=== PATIENT | male | born 1945 | race Caucasian/White ===

== ENCOUNTER 2017-10-06 16:08 | Emergency (ER) | payer MEDICARE ==
[~2017-10-06] VITALS: Ht 172.7 cm; Wt 72.6 kg
[~2017-10-06 16:08] MED LIST: CARB25TA22 PO; CITA10TA59 PO; DIP25C PO; LORA-654 PO; OLAN2.5T25 PO; PRA25T PO; RASA1TAB4 PO; TRIH5TAB2 PO; WARF5TAB71 PO
[2017-10-06 16:25] VITALS: BP 101/73
== END 2017-10-06 19:29 | disposition home or self-care (01) ==
LOC: ER 16:10
DX: S00.03XA Contusion of scalp, initial encounter (principal); S50.12XA Contusion of left forearm, initial encounter; Z88.8 Allergy status to other drugs, medicaments and biological substances; Z79.899 Other long term (current) drug therapy; W18.39XA Other fall on same level, initial encounter; Y93.89 Activity, other specified; Y92.89 Other specified places as the place of occurrence of the external cause; Y99.8 Other external cause status
CPT/HCPCS: 70450

== ENCOUNTER 2018-03-10 11:36 | Inpatient (IN) | payer MEDICARE, OTHER ==
[~2018-03-10] VITALS: Ht 175.3 cm; Wt 74.0 kg
[2018-03-10] VITALS (8 sets, daily range): BP systolic 85–109; BP diastolic 37–76
[2018-03-10] MEDS ORDERED: SODIUM CHLORIDE 0.9% 1,000 ML IV ONE (12:20)
[2018-03-10] MEDS ORDERED: LEVOFLOXACIN 500MG 100 ML IV ONE (12:30)
[2018-03-10] MEDS ORDERED: NOREPINEPHRINE 16 MG/500ML KIT 500 ML IV SCH (13:14)
[2018-03-10] MEDS ORDERED: MORPHINE SULFATE 4 MG/ML SYR/VIAL IV PRN (13:15)
[2018-03-10] MEDS ORDERED: OSELTAMIVIR 75 MG CAP PO ONE (13:15)
[2018-03-10] MEDS ORDERED: cefTRIAXone 1GM/10ml IVPUSH 10 ML IV ONE ×2 (13:15→14:30)
[2018-03-10] MEDS ORDERED: LACTATED RINGER'S 1,000 ML IV SCH (13:15)
[2018-03-10] MEDS ORDERED: NITROGLYCERIN 0.4 MG SL TAB SL PRN (13:15)
[2018-03-10] MEDS ORDERED: AZITHROMYCIN 500MG/ 250ML 250 ML IV ONE ×2 (13:15→14:30)
[2018-03-10] MEDS ORDERED: VANCOMYCIN PER PHARMACY 0 MG IV SCH (13:15)
[2018-03-10 13:23] LABS: Lactic Acid w/Reflex 3.3 mmol/L (0.4-2.0)
[2018-03-10 13:32] LABS: Hemoglobin 10.2 g/dL (13.5-17.5)
[2018-03-10] MEDS ORDERED: VANCOMYCIN 1GM/250ML 250 ML IV ONE (13:45)
[2018-03-10 13:52] LABS: Albumin 2.3 g/dL (3.4-5.0); Bilirubin, Total 0.8 mg/dL (0.2-1.0); Calcium 7.9 mg/dL (8.5-10.1); Magnesium 2.6 mg/dL (1.6-2.6); Potassium 3.3 mmol/L (3.5-5.1); Total Protein 6.5 g/dL (6.4-8.2)
[2018-03-10 13:56] LABS: Hematocrit 30.8 % (41.0-53.0); Mean Corpuscular Hemoglobin 30.8 pg (28.0-32.0); Mean Corpuscular Hgb Conc. 33.2 g/dL (32.0-36.0); Mean Corpuscular Volume 92.8 fL (80.0-100.0); Platelet Count (auto) 166 10^3/uL (140-450); Red Blood Cells 3.32 10^6/uL (4.5-5.90); Red Cell Distribution Width 15.4 % (11.8-14.3)
[2018-03-10 14:09] LABS: Basophils % (manual) 0 (0.0-2.0); Blast Cells 0; Eosinophils % (manual) 0 (0-7); Promyelocytes % 0; Reactive Lymphocytes 0
[2018-03-10 14:32] LABS: Cholesterol 61 mg/dL (< 200); HDL Cholesterol 9 mg/dL (40-59); LDL Cholesterol 13 mg/dL (< 100); Triglycerides 200 mg/dL (< 150)
[2018-03-10] MEDS ORDERED: ENOXAPARIN SOD 40 MG/0.4 ML SYRINGE SC ONE (14:45)
[2018-03-10] MEDS ORDERED: CARBIDOPA W LEVODOPA 25/100mg TABLET PO ONE (14:45)
[2018-03-10] MEDS ORDERED: POTASSIUM CHL 10 Meq TABLET PO ONE (14:45)
[2018-03-10 14:53] LABS: Band Neutrophils % (manual) 11; Lymphocytes % (manual) 21 (10.0-50.0); Metamyelocytes % 8; Monocytes % (manual) 2 (0-12); Myelocytes % 1
[2018-03-10] MEDS ORDERED: PANTOPRAZOLE 40 MG/10 ML VIAL IV ONE (15:45)
[2018-03-10] MEDS: LACTATED RINGER'S 1,000 ML IV SCH ×2 (16:26→23:58)
[2018-03-10 16:33] LABS: Partial Thromboplastin Time 69.2 sec (22.64-33.71); Prothrombin Time 65.1 sec (9.37-12.3)
[2018-03-10 16:37] LABS: INR 5.87 (0.9-1.15)
[2018-03-10] MEDS: OSELTAMIVIR 30MG/2ML ORAL SUSP PO SCH (17:00)
[2018-03-10 17:39] LABS: Urine Bacteria NONE SEEN /hpf (None Seen); Urine Blood 1+ /uL (Negative); Urine Hyaline Cast MANY /lpf (0 - 2); Urine Mucus FEW (None Seen); Urine Specific Gravity 1.023 (1.001-1.035); Urine WBC 4 /hpf (0 - 3)
[2018-03-10] MEDS: ALBUTEROL SULF 2.5 MG/0.5ML(0.5%) NEB SOLN NEB SCH (18:20)
[2018-03-10] MEDS: IPRATROPIUM BROM 0.5 MG/2.5ML INH SOL NEB SCH (18:20)
[2018-03-10] MEDS: PIPERACILLIN-TAZOB 2.25GM 50 ML IV SCH (18:28)
[2018-03-10] MEDS ORDERED: CITALOPRAM HYDROBR 20 MG TAB PO ONE (20:15)
[2018-03-10] MEDS ORDERED: OLANZapine 5 MG TAB PO ONE (20:15)
[2018-03-10 20:35] LABS: BUN/Creatinine Ratio 22.7; Calcium 7.6 mg/dL (8.5-10.1); Potassium 3.7 mmol/L (3.5-5.1)
[2018-03-10] MEDS: LINEZOLID 600MG/300ML 300 ML IV SCH (20:36)
[2018-03-10] MEDS: NOREPINEPHRINE 16 MG/500ML KIT 500 ML IV SCH (21:20)
[2018-03-10] MEDS ORDERED: LORA2TAB89 PO (21:39)
[2018-03-10] MEDS ORDERED: CITA10TA59 PO (21:39)
[2018-03-10] MEDS ORDERED: PRA25T PO (21:39)
[2018-03-10] MEDS ORDERED: RASA1TAB4 PO (21:39)
[2018-03-10] MEDS ORDERED: CARB25TA22 PO (21:39)
[2018-03-10] MEDS ORDERED: WARF5TAB71 PO (21:39)
[2018-03-10] MEDS ORDERED: OLAN20TA13 PO (21:39)
[2018-03-10] MEDS ORDERED: TRIH5TAB2 PO ×2 (21:39)
[2018-03-10] MEDS ORDERED: PRAMIPEXOLE DIHYDROCHLORIDE MO 0.25 MG TAB PO SCH (22:00)
[2018-03-10] MEDS ORDERED: CARBIDOPA W LEVODOPA 25/100mg TABLET PO SCH (22:00)
[2018-03-11] VITALS (82 sets, daily range): BP systolic 75–124; BP diastolic 50–87
[2018-03-11] MEDS: PIPERACILLIN-TAZOB 2.25GM 50 ML IV SCH ×4 (00:18→18:48)
[2018-03-11] MEDS: ALBUTEROL SULF 2.5 MG/0.5ML(0.5%) NEB SOLN NEB SCH ×4 (00:28→18:46)
[2018-03-11] MEDS: IPRATROPIUM BROM 0.5 MG/2.5ML INH SOL NEB SCH ×4 (00:28→18:45)
[2018-03-11 03:58] LABS: Hemoglobin 9.4 g/dL (13.5-17.5); Mean Corpuscular Hemoglobin 31.5 pg (28.0-32.0); Mean Corpuscular Hgb Conc. 34.5 g/dL (32.0-36.0)
[2018-03-11 04:00] LABS: Hematocrit 27.3 % (41.0-53.0); Mean Corpuscular Volume 91.2 fL (80.0-100.0); Platelet Count (auto) 147 10^3/uL (140-450); Red Cell Distribution Width 15.4 % (11.8-14.3)
[2018-03-11 04:09] LABS: White Blood Cell 0.8 10^3/uL (4.4-10.8)
[2018-03-11 04:23] LABS: Albumin 1.8 g/dL (3.4-5.0); BUN/Creatinine Ratio 26.1; Bilirubin, Total 0.9 mg/dL (0.2-1.0); Calcium 7.9 mg/dL (8.5-10.1); Potassium 3.7 mmol/L (3.5-5.1); Total Protein 5.6 g/dL (6.4-8.2)
[2018-03-11 04:27] LABS: Lactic Acid w/Reflex 2.8 mmol/L (0.4-2.0)
[2018-03-11] MEDS ORDERED: DEXTROSE (50%) 50ML SYRG IV PRN (04:45)
[2018-03-11 04:47] LABS: Basophils % (manual) 0 (0.0-2.0); Blast Cells 0; Monocytes % (manual) 0 (0-12); Myelocytes % 0; Promyelocytes % 0; Reactive Lymphocytes 0
[2018-03-11 04:50] LABS: Band Neutrophils % (manual) 40; Eosinophils % (manual) 2 (0-7); Lymphocytes % (manual) 18 (10.0-50.0); Metamyelocytes % 2
[2018-03-11] MEDS ORDERED: DEXTROSE 50% SYRINGE 50 ML IV ONE (04:55)
[2018-03-11] MEDS: ACCU-CHEK COMFORT CURVE STRIP VI SCH ×3 (07:44→18:49)
[2018-03-11] MEDS: InsuLIN REG 1unit/0.01ml Soln (100units/ml) SC SCH ×3 (07:44→18:48)
[2018-03-11] MEDS ORDERED: cefTRIAXone 1GM/10ml IVPUSH 10 ML IV SCH (09:00)
[2018-03-11] MEDS: LINEZOLID 600MG/300ML 300 ML IV SCH ×2 (09:20→20:34)
[2018-03-11] MEDS: OSELTAMIVIR 30MG/2ML ORAL SUSP PO SCH (10:00)
[2018-03-11] MEDS ORDERED: ENOXAPARIN SOD 30 MG/0.3 ML SYRINGE SC SCH (10:00)
[2018-03-11] MEDS: PANTOPRAZOLE 40 MG/10 ML VIAL IV SCH (10:28)
[2018-03-11] MEDS: AZITHROMYCIN 500MG/ 250ML 200 ML IV SCH (10:31)
[2018-03-11] MEDS: LACTATED RINGER'S 1,000 ML IV SCH (11:59)
[2018-03-11] MEDS: ALBUMIN 25% 100 ML IV SCH ×2 (12:23→19:36)
[2018-03-11] MEDS: CARBIDOPA W LEVODOPA 25/100mg TABLET PO SCH ×3 (13:32→21:55)
[2018-03-11] MEDS ORDERED: FILGRASTIM 480 MCG INJ VIAL SC SCH (23:00)
[2018-03-12] VITALS (41 sets, daily range): BP systolic 90–124; BP diastolic 42–78
[2018-03-12] MEDS: PIPERACILLIN-TAZOB 2.25GM 50 ML IV SCH ×4 (00:17→18:32)
[2018-03-12] MEDS: IPRATROPIUM BROM 0.5 MG/2.5ML INH SOL NEB SCH ×4 (00:43→18:49)
[2018-03-12] MEDS: ALBUTEROL SULF 2.5 MG/0.5ML(0.5%) NEB SOLN NEB SCH ×4 (00:43→18:49)
[2018-03-12] MEDS: ACCU-CHEK COMFORT CURVE STRIP VI SCH ×4 (01:49→18:22)
[2018-03-12] MEDS: LACTATED RINGER'S 1,000 ML IV SCH (03:31)
[2018-03-12] MEDS: ALBUMIN 25% 100 ML IV SCH (03:31)
[2018-03-12 04:14] LABS: Basophils # (auto) 0 uL; Eosinophils # (auto) 0 uL; Eosinophils % (auto) 0.5 % (0.0-7.0); Hematocrit 25.8 % (41.0-53.0); Hemoglobin 8.7 g/dL (13.5-17.5); Lymphocytes # (auto) 0.2 uL; Lymphocytes % (auto) 3.9 % (10.0-50.0); Mean Corpuscular Hemoglobin 30.9 pg (28.0-32.0); Mean Corpuscular Hgb Conc. 33.5 g/dL (32.0-36.0); Mean Corpuscular Volume 92.2 fL (80.0-100.0); Monocytes # (auto) 0 uL; Neutrophils # (auto) 3.7 uL; Neutrophils % (auto) 94.6 % (37.0-80.0); Nucleated Red Blood Cells % 0.2 %; Platelet Count (auto) 159 10^3/uL (140-450); Red Cell Distribution Width 15.5 % (11.8-14.3); White Blood Cell 3.9 10^3/uL (4.4-10.8)
[2018-03-12 04:42] LABS: Alanine Aminotransferase < 6 U/L (16-61); Albumin 2.2 g/dL (3.4-5.0); Alkaline Phosphatase 78 U/L (45-117); Anion Gap 9 (5-15); Aspartate Aminotransferase 18 U/L (15-37); BUN/Creatinine Ratio 33.9; Bilirubin, Total 1.4 mg/dL (0.2-1.0); Blood Urea Nitrogen 43 mg/dL (7-18); Calcium 8.4 mg/dL (8.5-10.1); Carbon Dioxide 23 mmol/L (21-32); Chloride 107 mmol/L (98-107); GFR African American 72 mL/min; GFR Non-African American 60 mL/min; Glucose 65 mg/dL (74-106); Phosphorus 3.6 mg/dL (2.5-4.90); Potassium 3.1 mmol/L (3.5-5.1); Sodium 139 mmol/L (136-145); Total Protein 5.6 g/dL (6.4-8.2)
[2018-03-12] MEDS: InsuLIN REG 1unit/0.01ml Soln (100units/ml) SC SCH ×4 (05:47→18:00)
[2018-03-12] MEDS: CARBIDOPA W LEVODOPA 25/100mg TABLET PO SCH ×4 (06:02→22:00)
[2018-03-12] MEDS: NOREPINEPHRINE 16 MG/500ML KIT 500 ML IV SCH (08:12)
[2018-03-12] MEDS: LINEZOLID 600MG/300ML 300 ML IV SCH ×2 (08:17→20:00)
[2018-03-12] MEDS ORDERED: TRIHEXYPHENIDYL NG SCH (10:00)
[2018-03-12] MEDS ORDERED: ENOXAPARIN SOD 40 MG/0.4 ML SYRINGE SC SCH (10:00)
[2018-03-12] MEDS: RASAGILINE 1 MG NG SCH (11:00)
[2018-03-12] MEDS: PANTOPRAZOLE 40 MG/10 ML VIAL IV SCH (11:31)
[2018-03-12] MEDS: D5W/SOD CHL 0.45%/KCL 20MEQ 1,000 ML IV SCH (14:25)
[2018-03-12] MEDS: POTASSIUM CHL 20MEQ/100ML 100 ML IV SCH ×2 (14:29→16:55)
[2018-03-12] MEDS ORDERED: MORPHINE SULFATE 8mg/ml INJ SDV IV PRN (15:30)
[2018-03-12 15:38] LABS: Prothrombin Time 100.2 sec (9.37-12.3)
[2018-03-12] MEDS: AZITHROMYCIN 500MG/ 250ML 200 ML IV SCH (16:00)
[2018-03-12 16:14] LABS: INR 8.99 (0.9-1.15); Partial Thromboplastin Time 125.6 sec (22.64-33.71)
[2018-03-12] MEDS ORDERED: PHYTONADIONE (VIT K)10 MG/ML 1ML VIAL SUBCUT ONE (16:45)
[2018-03-12] MEDS: TRIHEXYPHENIDYL 5 MG NG SCH (22:00)
[2018-03-13] VITALS (7 sets, daily range): BP systolic 117–134; BP diastolic 68–99
[2018-03-13] MEDS: ALBUTEROL SULF 2.5 MG/0.5ML(0.5%) NEB SOLN NEB SCH ×4 (00:12→18:09)
[2018-03-13] MEDS: IPRATROPIUM BROM 0.5 MG/2.5ML INH SOL NEB SCH ×4 (00:12→18:09)
[2018-03-13] MEDS: PIPERACILLIN-TAZOB 2.25GM 50 ML IV SCH ×4 (05:51→17:49)
[2018-03-13] MEDS: CARBIDOPA W LEVODOPA 25/100mg TABLET PO SCH ×4 (05:52→20:53)
[2018-03-13] MEDS: InsuLIN REG 1unit/0.01ml Soln (100units/ml) SC SCH ×4 (06:00→17:57)
[2018-03-13] MEDS: ACCU-CHEK COMFORT CURVE STRIP VI SCH ×4 (06:16→17:49)
[2018-03-13 06:27] LABS: Basophils # (auto) 0 uL; Basophils % (auto) 0.1 % (0.0-2.0); Eosinophils # (auto) 0 uL; Eosinophils % (auto) 0.3 % (0.0-7.0); Hematocrit 25.2 % (41.0-53.0); Hemoglobin 8.7 g/dL (13.5-17.5); Lymphocytes # (auto) 0.3 uL; Lymphocytes % (auto) 3.8 % (10.0-50.0); Mean Corpuscular Hemoglobin 31.6 pg (28.0-32.0); Mean Corpuscular Hgb Conc. 34.6 g/dL (32.0-36.0); Mean Corpuscular Volume 91.3 fL (80.0-100.0); Monocytes # (auto) 0.1 uL; Monocytes % (auto) 1.7 % (0.0-12.0); Neutrophils % (auto) 94.1 % (37.0-80.0); Nucleated Red Blood Cells % 0.1 %; Platelet Count (auto) 168 10^3/uL (140-450); Red Blood Cells 2.76 10^6/uL (4.5-5.90); Red Cell Distribution Width 15.6 % (11.8-14.3); White Blood Cell 8.5 10^3/uL (4.4-10.8)
[2018-03-13 06:46] LABS: Prothrombin Time 85.5 sec (9.37-12.3)
[2018-03-13 06:49] LABS: BUN/Creatinine Ratio 34.1; Bilirubin, Total 1.5 mg/dL (0.2-1.0); Calcium 8.4 mg/dL (8.5-10.1); Potassium 3.9 mmol/L (3.5-5.1); Total Protein 5.7 g/dL (6.4-8.2)
[2018-03-13 06:56] LABS: INR 7.68 (0.9-1.15)
[2018-03-13 06:57] LABS: Partial Thromboplastin Time 115.8 sec (22.64-33.71)
[2018-03-13] MEDS: PANTOPRAZOLE 40 MG/10 ML VIAL IV SCH (09:59)
[2018-03-13] MEDS: D5W/SOD CHL 0.45%/KCL 20MEQ 1,000 ML IV SCH (10:00)
[2018-03-13] MEDS: LINEZOLID 600MG/300ML 300 ML IV SCH ×2 (10:04→20:24)
[2018-03-13] MEDS ORDERED: PHYTONADIONE (VIT K)10 MG/ML 1ML VIAL SUBCUT ONE (10:15)
[2018-03-13] MEDS: RASAGILINE 1 MG NG SCH (12:00)
[2018-03-13] MEDS: TRIHEXYPHENIDYL 5 MG NG SCH ×2 (12:00→20:53)
[2018-03-13] MEDS: AZITHROMYCIN 500MG/ 250ML 200 ML IV SCH (12:14)
[2018-03-13 20:51] LABS: % Iron Saturation 44.2 % (20-55)
[2018-03-14] VITALS: BP 131/81
[2018-03-14] MEDS: ALBUTEROL SULF 2.5 MG/0.5ML(0.5%) NEB SOLN NEB SCH ×4 (00:04→19:24)
[2018-03-14] MEDS: IPRATROPIUM BROM 0.5 MG/2.5ML INH SOL NEB SCH ×4 (00:04→19:23)
[2018-03-14] MEDS: PIPERACILLIN-TAZOB 2.25GM 50 ML IV SCH ×5 (05:01→23:08)
[2018-03-14 05:33] LABS: Basophils # (auto) 0 uL; Basophils % (auto) 0.2 % (0.0-2.0); Eosinophils # (auto) 0 uL; Eosinophils % (auto) 0.1 % (0.0-7.0); Hematocrit 25.9 % (41.0-53.0); Hemoglobin 8.9 g/dL (13.5-17.5); Lymphocytes # (auto) 0.3 uL; Lymphocytes % (auto) 5.1 % (10.0-50.0); Mean Corpuscular Hemoglobin 31.3 pg (28.0-32.0); Mean Corpuscular Hgb Conc. 34.5 g/dL (32.0-36.0); Mean Corpuscular Volume 90.8 fL (80.0-100.0); Monocytes # (auto) 0.2 uL; Monocytes % (auto) 3.3 % (0.0-12.0); Neutrophils # (auto) 5.6 uL; Neutrophils % (auto) 91.3 % (37.0-80.0); Platelet Count (auto) 167 10^3/uL (140-450); Red Blood Cells 2.85 10^6/uL (4.5-5.90); Red Cell Distribution Width 15.5 % (11.8-14.3); White Blood Cell 6.1 10^3/uL (4.4-10.8)
[2018-03-14 05:47] LABS: INR 2.13 (0.9-1.15); Partial Thromboplastin Time 52.8 sec (22.64-33.71); Prothrombin Time 23.4 sec (9.37-12.3)
[2018-03-14] MEDS: InsuLIN REG 1unit/0.01ml Soln (100units/ml) SC SCH ×4 (06:00→17:58)
[2018-03-14] MEDS: ACCU-CHEK COMFORT CURVE STRIP VI SCH ×4 (06:00→17:58)
[2018-03-14] MEDS: D5W/SOD CHL 0.45%/KCL 20MEQ 1,000 ML IV SCH ×2 (06:00→20:14)
[2018-03-14] MEDS: CARBIDOPA W LEVODOPA 25/100mg TABLET PO SCH ×4 (07:00→23:08)
[2018-03-14 08:00] VITALS: BP 137/90
[2018-03-14] MEDS: LINEZOLID 600MG/300ML 300 ML IV SCH ×2 (08:46→20:14)
[2018-03-14 09:04] LABS: Alanine Aminotransferase < 6 U/L (16-61); Albumin 1.8 g/dL (3.4-5.0); Alkaline Phosphatase 120 U/L (45-117); Anion Gap 7 (5-15); Aspartate Aminotransferase 18 U/L (15-37); BUN/Creatinine Ratio 29.2; Bilirubin, Total 1.8 mg/dL (0.2-1.0); Blood Urea Nitrogen 21 mg/dL (7-18); Calcium 8.1 mg/dL (8.5-10.1); Carbon Dioxide 26 mmol/L (21-32); Chloride 108 mmol/L (98-107); GFR African American 139 mL/min; GFR Non-African American 115 mL/min; Glucose 140 mg/dL (74-106); Sodium 141 mmol/L (136-145); Total Protein 5.7 g/dL (6.4-8.2)
[2018-03-14] MEDS: PANTOPRAZOLE 40 MG/10 ML VIAL IV SCH (09:43)
[2018-03-14] MEDS: AZITHROMYCIN 500MG/ 250ML 200 ML IV SCH (09:43)
[2018-03-14] MEDS: RASAGILINE 1 MG NG SCH (09:44)
[2018-03-14] MEDS: TRIHEXYPHENIDYL 5 MG NG SCH ×2 (09:44→23:07)
[2018-03-14 11:45] VITALS: BP 136/80
[2018-03-14] MEDS: SODIUM FERR GLUC 62.5MG/5ML 125 MG in SODIUM CHL 0.9% 100 ML IV SCH (15:10)
[2018-03-14 15:52] VITALS: BP 135/81
[2018-03-14] MEDS ORDERED: WARFARIN SODIUM 2.5 MG TAB PO ONE (17:00)
[2018-03-14] MEDS: FERROUS SULFATE 325 MG TAB PO SCH (17:57)
[2018-03-14 19:58] VITALS: BP 115/74
[2018-03-15] MEDS: ACCU-CHEK COMFORT CURVE STRIP VI SCH ×4 (00:08→17:32)
[2018-03-15 00:23] VITALS: BP 128/76
[2018-03-15] MEDS: ALBUTEROL SULF 2.5 MG/0.5ML(0.5%) NEB SOLN NEB SCH ×4 (00:31→18:21)
[2018-03-15] MEDS: IPRATROPIUM BROM 0.5 MG/2.5ML INH SOL NEB SCH ×4 (00:32→18:21)
[2018-03-15] MEDS: InsuLIN REG 1unit/0.01ml Soln (100units/ml) SC SCH ×4 (05:35→17:32)
[2018-03-15] MEDS: PIPERACILLIN-TAZOB 2.25GM 50 ML IV SCH ×3 (05:53→18:10)
[2018-03-15] MEDS: CARBIDOPA W LEVODOPA 25/100mg TABLET PO SCH ×4 (05:53→22:00)
[2018-03-15 06:20] LABS: INR 1.34 (0.9-1.15); Partial Thromboplastin Time 36.1 sec (22.64-33.71); Prothrombin Time 14.7 sec (9.37-12.3)
[2018-03-15 06:22] LABS: Alanine Aminotransferase < 6 U/L (16-61); Albumin 1.8 g/dL (3.4-5.0); Alkaline Phosphatase 108 U/L (45-117); Anion Gap 8 (5-15); Aspartate Aminotransferase 15 U/L (15-37); BUN/Creatinine Ratio 33.3; Bilirubin, Total 2.3 mg/dL (0.2-1.0); Blood Urea Nitrogen 22 mg/dL (7-18); Calcium 8.2 mg/dL (8.5-10.1); Carbon Dioxide 26 mmol/L (21-32); Chloride 109 mmol/L (98-107); GFR African American 153 mL/min; GFR Non-African American 127 mL/min; Glucose 121 mg/dL (74-106); Potassium 3.9 mmol/L (3.5-5.1); Sodium 143 mmol/L (136-145); Total Protein 6.1 g/dL (6.4-8.2)
[2018-03-15] MEDS: FERROUS SULFATE 325 MG TAB PO SCH ×2 (08:53→18:00)
[2018-03-15] MEDS: LINEZOLID 600MG/300ML 300 ML IV SCH ×2 (08:54→20:22)
[2018-03-15] MEDS: PANTOPRAZOLE 40 MG/10 ML VIAL IV SCH (09:40)
[2018-03-15] MEDS: TRIHEXYPHENIDYL 5 MG NG SCH ×2 (09:43→22:00)
[2018-03-15] MEDS: RASAGILINE 1 MG NG SCH (09:43)
[2018-03-15] MEDS: AZITHROMYCIN 500MG/ 250ML 200 ML IV SCH (10:47)
[2018-03-15 11:50] VITALS: BP 133/76
[2018-03-15] MEDS: SODIUM FERR GLUC 62.5MG/5ML 125 MG in SODIUM CHL 0.9% 100 ML IV SCH (12:00)
[2018-03-15] MEDS: D5W/SOD CHL 0.45%/KCL 20MEQ 1,000 ML IV SCH (15:45)
[2018-03-15 15:50] VITALS: BP 128/77
[2018-03-15] MEDS ORDERED: WARFARIN SODIUM 2.5 MG TAB PO ONE (17:00)
[2018-03-15 19:50] VITALS: BP 133/78
[2018-03-16] VITALS (8 sets, daily range): BP systolic 109–142; BP diastolic 67–79
[2018-03-16] MEDS: ACCU-CHEK COMFORT CURVE STRIP VI SCH ×4 (00:13→17:24)
[2018-03-16] MEDS: PIPERACILLIN-TAZOB 2.25GM 50 ML IV SCH ×4 (00:13→20:32)
[2018-03-16] MEDS: InsuLIN REG 1unit/0.01ml Soln (100units/ml) SC SCH ×4 (00:14→17:37)
[2018-03-16] MEDS: ALBUTEROL SULF 2.5 MG/0.5ML(0.5%) NEB SOLN NEB SCH ×4 (00:42→19:27)
[2018-03-16] MEDS: IPRATROPIUM BROM 0.5 MG/2.5ML INH SOL NEB SCH ×4 (00:42→19:27)
[2018-03-16 05:51] LABS: Basophils # (auto) 0 uL; Basophils % (auto) 0.1 % (0.0-2.0); Eosinophils # (auto) 0 uL; Lymphocytes # (auto) 0.3 uL
[2018-03-16] MEDS: CARBIDOPA W LEVODOPA 25/100mg TABLET PO SCH ×3 (06:00→11:59)
[2018-03-16 06:04] LABS: Eosinophils % (auto) 0.1 % (0.0-7.0); Hematocrit 22.6 % (41.0-53.0); Hemoglobin 7.7 g/dL (13.5-17.5); Mean Corpuscular Hemoglobin 31.5 pg (28.0-32.0); Mean Corpuscular Hgb Conc. 34.3 g/dL (32.0-36.0); Monocytes # (auto) 0.2 uL; Monocytes % (auto) 4.9 % (0.0-12.0); Neutrophils # (auto) 4.2 uL; Neutrophils % (auto) 87.9 % (37.0-80.0); Platelet Count (auto) 118 10^3/uL (140-450); Red Blood Cells 2.46 10^6/uL (4.5-5.90); Red Cell Distribution Width 15.5 % (11.8-14.3); White Blood Cell 4.8 10^3/uL (4.4-10.8)
[2018-03-16 06:15] LABS: BUN/Creatinine Ratio 31.3; Calcium 8.3 mg/dL (8.5-10.1)
[2018-03-16] MEDS: FERROUS SULFATE 325 MG TAB PO SCH (08:00)
[2018-03-16] MEDS: AZITHROMYCIN 500MG/ 250ML 200 ML IV SCH (10:00)
[2018-03-16] MEDS: LINEZOLID 600MG/300ML 300 ML IV SCH (10:10)
[2018-03-16] MEDS: PANTOPRAZOLE 40 MG/10 ML VIAL IV SCH (10:12)
[2018-03-16] MEDS ORDERED: FUROSEMIDE 20 MG/2 ML VIAL IV ONE (10:15)
[2018-03-16] MEDS: TRIHEXYPHENIDYL 5 MG NG SCH ×2 (10:39→21:18)
[2018-03-16] MEDS: RASAGILINE 1 MG NG SCH (10:40)
[2018-03-16 10:48] LABS: INR 1.14 (0.9-1.15); Partial Thromboplastin Time 30.6 sec (22.64-33.71); Prothrombin Time 12.4 sec (9.37-12.3)
[2018-03-16] MEDS ORDERED: POTASSIUM CHLORIDE 20 MEQ, LIDOCAINE 1% (LOCAL ANESTH.) 2 ML in SODIUM CHL 0.9% 100 ML IV ONE (11:00)
[2018-03-16] MEDS: D5W/SOD CHL 0.45%/KCL 20MEQ 1,000 ML IV SCH (11:27)
[2018-03-16] MEDS: SODIUM FERR GLUC 62.5MG/5ML 125 MG in SODIUM CHL 0.9% 100 ML IV SCH (13:33)
[2018-03-16] MEDS ORDERED: CARBIDOPA W LEVODOPA 25/100mg TABLET PO ONE ×2 (14:00→16:00)
[2018-03-16] MEDS ORDERED: WARFARIN SODIUM 5 MG TAB PO ONE (17:00)
[2018-03-16] MEDS: ACETAMINOPHEN 650 mg PER 20 mL UD GT PRN (20:38)
[2018-03-17] VITALS: BP 127/76
[2018-03-17] MEDS: ACCU-CHEK COMFORT CURVE STRIP VI SCH ×4 (00:29→18:46)
[2018-03-17] MEDS: IPRATROPIUM BROM 0.5 MG/2.5ML INH SOL NEB SCH ×4 (00:54→18:06)
[2018-03-17] MEDS: ALBUTEROL SULF 2.5 MG/0.5ML(0.5%) NEB SOLN NEB SCH ×4 (00:54→18:06)
[2018-03-17] MEDS: PIPERACILLIN-TAZOB 2.25GM 50 ML IV SCH (02:35)
[2018-03-17 04:00] VITALS: BP 123/79
[2018-03-17] MEDS: D5W/SOD CHL 0.45%/KCL 20MEQ 1,000 ML IV SCH (05:28)
[2018-03-17 05:30] LABS: Basophils # (auto) 0 uL; Eosinophils # (auto) 0 uL; Hemoglobin 8.1 g/dL (13.5-17.5); Lymphocytes # (auto) 0.4 uL; Monocytes # (auto) 0.3 uL; Platelet Count (auto) 104 10^3/uL (140-450); Red Blood Cells 2.55 10^6/uL (4.5-5.90)
[2018-03-17 05:34] LABS: Basophils % (auto) 0.2 % (0.0-2.0); Eosinophils % (auto) 0.1 % (0.0-7.0); Hematocrit 23.5 % (41.0-53.0); Lymphocytes % (auto) 6.8 % (10.0-50.0); Mean Corpuscular Hemoglobin 31.8 pg (28.0-32.0); Mean Corpuscular Hgb Conc. 34.4 g/dL (32.0-36.0); Mean Corpuscular Volume 92.3 fL (80.0-100.0); Neutrophils # (auto) 4.6 uL; Neutrophils % (auto) 87.9 % (37.0-80.0); Red Cell Distribution Width 15.4 % (11.8-14.3); White Blood Cell 5.3 10^3/uL (4.4-10.8)
[2018-03-17 05:40] LABS: INR 1.13 (0.9-1.15); Partial Thromboplastin Time 30.9 sec (22.64-33.71); Prothrombin Time 12.3 sec (9.37-12.3)
[2018-03-17 05:46] LABS: Calcium 8.1 mg/dL (8.5-10.1); Potassium 3.9 mmol/L (3.5-5.1)
[2018-03-17] MEDS: InsuLIN REG 1unit/0.01ml Soln (100units/ml) SC SCH ×4 (05:55→17:51)
[2018-03-17] MEDS: CARBIDOPA W LEVODOPA 25/100mg TABLET PO SCH ×7 (06:45→18:46)
[2018-03-17] MEDS: TRIHEXYPHENIDYL 5 MG NG SCH ×2 (08:56→21:19)
[2018-03-17] MEDS: RASAGILINE 1 MG NG SCH (08:56)
[2018-03-17] MEDS: PANTOPRAZOLE 40 MG/10 ML VIAL IV SCH (08:56)
[2018-03-17] MEDS: AZITHROMYCIN 500MG/ 250ML 200 ML IV SCH (10:50)
[2018-03-17] MEDS: ACETAMINOPHEN 650 mg PER 20 mL UD GT PRN ×2 (10:59→16:27)
[2018-03-17] MEDS ORDERED: VANCOMYCIN PER PHARMACY 0 MG IV SCH (11:15)
[2018-03-17 11:59] VITALS: BP 126/73
[2018-03-17] MEDS: PIPERACILLIN-TAZOB 3.375GM 100 ML IV SCH ×2 (12:06→18:46)
[2018-03-17] MEDS: SODIUM FERR GLUC 62.5MG/5ML 125 MG in SODIUM CHL 0.9% 100 ML IV SCH (12:06)
[2018-03-17] MEDS: Fibersource Hn 1 Liter GT SCH (13:46)
[2018-03-17] MEDS: VANCOMYCIN 1GM/250ML 250 ML IV SCH (15:34)
[2018-03-17 16:19] VITALS: BP 113/66
[2018-03-17] MEDS ORDERED: WARFARIN SODIUM 5 MG TAB PO ONE (17:00)
[2018-03-17 19:58] VITALS: BP 106/63
[2018-03-18] VITALS (9 sets, daily range): BP systolic 91–125; BP diastolic 52–64
[2018-03-18] MEDS: IPRATROPIUM BROM 0.5 MG/2.5ML INH SOL NEB SCH ×4 (00:08→19:55)
[2018-03-18] MEDS: ALBUTEROL SULF 2.5 MG/0.5ML(0.5%) NEB SOLN NEB SCH ×4 (00:08→19:55)
[2018-03-18] MEDS: PIPERACILLIN-TAZOB 3.375GM 100 ML IV SCH ×4 (00:16→17:34)
[2018-03-18] MEDS: ACETAMINOPHEN 650 mg PER 20 mL UD GT PRN (00:25)
[2018-03-18] MEDS: VANCOMYCIN 1GM/250ML 250 ML IV SCH ×2 (03:11→16:00)
[2018-03-18] MEDS: ACCU-CHEK COMFORT CURVE STRIP VI SCH ×4 (05:35→17:35)
[2018-03-18] MEDS: InsuLIN REG 1unit/0.01ml Soln (100units/ml) SC SCH ×4 (05:36→17:38)
[2018-03-18] MEDS: CARBIDOPA W LEVODOPA 25/100mg TABLET PO SCH ×7 (05:36→18:06)
[2018-03-18 05:42] LABS: Basophils # (auto) 0 uL; Eosinophils # (auto) 0 uL; Eosinophils % (auto) 0.3 % (0.0-7.0); Hematocrit 22.3 % (41.0-53.0); Hemoglobin 7.7 g/dL (13.5-17.5); Lymphocytes # (auto) 0.3 uL; Lymphocytes % (auto) 3.9 % (10.0-50.0); Mean Corpuscular Hgb Conc. 34.6 g/dL (32.0-36.0); Monocytes # (auto) 0.3 uL; Red Blood Cells 2.42 10^6/uL (4.5-5.90); White Blood Cell 7.1 10^3/uL (4.4-10.8)
[2018-03-18 05:44] LABS: Basophils % (auto) 0.2 % (0.0-2.0); Mean Corpuscular Hemoglobin 31.8 pg (28.0-32.0); Mean Corpuscular Volume 92.1 fL (80.0-100.0); Neutrophils # (auto) 6.5 uL; Neutrophils % (auto) 91.6 % (37.0-80.0); Platelet Count (auto) 103 10^3/uL (140-450); Red Cell Distribution Width 15.4 % (11.8-14.3)
[2018-03-18 05:46] LABS: INR 1.22 (0.9-1.15); Prothrombin Time 13.3 sec (9.37-12.3)
[2018-03-18 05:49] LABS: BUN/Creatinine Ratio 42.1; Potassium 3.6 mmol/L (3.5-5.1)
[2018-03-18] MEDS: PANTOPRAZOLE 40 MG/10 ML VIAL IV SCH (08:41)
[2018-03-18] MEDS: RASAGILINE 1 MG NG SCH (08:41)
[2018-03-18] MEDS: TRIHEXYPHENIDYL 5 MG NG SCH ×2 (08:42→21:44)
[2018-03-18] MEDS ORDERED: CITALOPRAM HYDROBR 20 MG TAB PO ONE (12:45)
[2018-03-18] MEDS ORDERED: PRAMIPEXOLE DIHYDROCHLORIDE MO 0.25 MG TAB PO ONE (13:00)
[2018-03-18] MEDS ORDERED: OLANZapine 5 MG TAB PO ONE (13:00)
[2018-03-18] MEDS ORDERED: WARFARIN SODIUM 5 MG TAB PO ONE (17:00)
[2018-03-18] MEDS: FREE WATER GT SCH (17:34)
[2018-03-18] MEDS: Fibersource Hn 1 Liter GT SCH (18:07)
[2018-03-18] MEDS: PRAMIPEXOLE DIHYDROCHLORIDE MO 0.25 MG TAB PO SCH (21:44)
[2018-03-19] MEDS: PIPERACILLIN-TAZOB 3.375GM 100 ML IV SCH ×4 (00:08→18:15)
[2018-03-19] MEDS: ACCU-CHEK COMFORT CURVE STRIP VI SCH ×4 (00:10→18:10)
[2018-03-19] MEDS: ALBUTEROL SULF 2.5 MG/0.5ML(0.5%) NEB SOLN NEB SCH ×4 (01:01→18:27)
[2018-03-19] MEDS: IPRATROPIUM BROM 0.5 MG/2.5ML INH SOL NEB SCH ×4 (01:01→18:27)
[2018-03-19 02:37] LABS: Basophils # (auto) 0 uL; Eosinophils # (auto) 0 uL; Hemoglobin 7.5 g/dL (13.5-17.5); Mean Corpuscular Hgb Conc. 33.9 g/dL (32.0-36.0); Neutrophils # (auto) 7.1 uL; Red Blood Cells 2.42 10^6/uL (4.5-5.90)
[2018-03-19 02:39] LABS: Basophils % (auto) 0.2 % (0.0-2.0); Eosinophils % (auto) 0.6 % (0.0-7.0); Hematocrit 22.1 % (41.0-53.0); Lymphocytes # (auto) 0.4 uL; Mean Corpuscular Volume 91.4 fL (80.0-100.0); Monocytes # (auto) 0.4 uL; Monocytes % (auto) 5.3 % (0.0-12.0); Neutrophils % (auto) 88.9 % (37.0-80.0); Platelet Count (auto) 111 10^3/uL (140-450)
[2018-03-19 02:53] LABS: INR 1.25 (0.9-1.15); Prothrombin Time 13.7 sec (9.37-12.3)
[2018-03-19 03:04] LABS: BUN/Creatinine Ratio 48.3; Calcium 7.6 mg/dL (8.5-10.1); Potassium 3.1 mmol/L (3.5-5.1)
[2018-03-19] MEDS: VANCOMYCIN 1GM/250ML 250 ML IV SCH (03:43)
[2018-03-19] MEDS: InsuLIN REG 1unit/0.01ml Soln (100units/ml) SC SCH ×4 (06:00→18:10)
[2018-03-19] MEDS: FREE WATER GT SCH ×4 (06:25→18:18)
[2018-03-19] MEDS: CARBIDOPA W LEVODOPA 25/100mg TABLET PO SCH ×10 (06:25→21:30)
[2018-03-19 08:00] VITALS: BP 137/78
[2018-03-19] MEDS: CITALOPRAM HYDROBR 20 MG TAB PO SCH (10:31)
[2018-03-19] MEDS: OLANZapine 5 MG TAB PO SCH (10:32)
[2018-03-19] MEDS: PRAMIPEXOLE DIHYDROCHLORIDE MO 0.25 MG TAB PO SCH ×2 (10:33→21:00)
[2018-03-19] MEDS: PANTOPRAZOLE 40 MG/10 ML VIAL IV SCH (10:33)
[2018-03-19] MEDS: RASAGILINE 1 MG NG SCH (10:34)
[2018-03-19] MEDS: TRIHEXYPHENIDYL 5 MG NG SCH ×2 (10:35→21:01)
[2018-03-19] MEDS ORDERED: FUROSEMIDE 40 MG/4 ML VIAL IV ONE (11:30)
[2018-03-19] MEDS ORDERED: POTASSIUM CHL 10% (20 MEQ/15ML) 15ml ORAL SOLN GT ONE (11:30)
[2018-03-19 11:43] LABS: Hemoglobin 7.5 g/dL (13.5-17.5)
[2018-03-19 11:45] LABS: Hematocrit 22.1 % (41.0-53.0)
[2018-03-19 12:01] VITALS: BP 82/45
[2018-03-19 16:00] VITALS: BP 98/54
[2018-03-19] MEDS: VANCOMYCIN 1,250 MG in D5W 5% 250 ML IV SCH (16:20)
[2018-03-19 19:09] VITALS: BP 98/54
[2018-03-19 20:00] VITALS: BP 92/56
[2018-03-19] MEDS ORDERED: CARBIDOPA W LEVODOPA 25/100mg TABLET PO SCH (21:00)
[2018-03-20] VITALS (17 sets, daily range): BP systolic 84–122; BP diastolic 43–75
[2018-03-20] MEDS: PIPERACILLIN-TAZOB 3.375GM 100 ML IV SCH ×5 (00:05→23:48)
[2018-03-20] MEDS: ACCU-CHEK COMFORT CURVE STRIP VI SCH ×5 (00:05→23:58)
[2018-03-20] MEDS: IPRATROPIUM BROM 0.5 MG/2.5ML INH SOL NEB SCH ×4 (00:08→18:15)
[2018-03-20] MEDS: ALBUTEROL SULF 2.5 MG/0.5ML(0.5%) NEB SOLN NEB SCH ×4 (00:08→18:15)
[2018-03-20] MEDS: CARBIDOPA W LEVODOPA 25/100mg TABLET PO SCH ×13 (00:09→23:48)
[2018-03-20] MEDS: FREE WATER GT SCH ×5 (00:09→23:48)
[2018-03-20] MEDS: InsuLIN REG 1unit/0.01ml Soln (100units/ml) SC SCH ×4 (00:35→18:12)
[2018-03-20] MEDS: VANCOMYCIN 1,250 MG in D5W 5% 250 ML IV SCH ×2 (03:00→15:12)
[2018-03-20 05:43] LABS: Basophils # (auto) 0 uL; Basophils % (auto) 0.2 % (0.0-2.0); Eosinophils # (auto) 0.1 uL; Eosinophils % (auto) 0.8 % (0.0-7.0); Lymphocytes # (auto) 0.5 uL; Monocytes # (auto) 0.6 uL; Red Blood Cells 2.46 10^6/uL (4.5-5.90)
[2018-03-20 05:47] LABS: Hematocrit 22.4 % (41.0-53.0); Hemoglobin 7.7 g/dL (13.5-17.5); Lymphocytes % (auto) 6.2 % (10.0-50.0); Mean Corpuscular Hemoglobin 31.2 pg (28.0-32.0); Mean Corpuscular Hgb Conc. 34.3 g/dL (32.0-36.0); Monocytes % (auto) 6.7 % (0.0-12.0); Neutrophils # (auto) 7.6 uL; Neutrophils % (auto) 86.1 % (37.0-80.0); Nucleated Red Blood Cells % 0.1 %; Platelet Count (auto) 148 10^3/uL (140-450); Red Cell Distribution Width 16.2 % (11.8-14.3); White Blood Cell 8.8 10^3/uL (4.4-10.8)
[2018-03-20 05:59] LABS: Alanine Aminotransferase < 6 U/L (16-61); Albumin 1.8 g/dL (3.4-5.0); Alkaline Phosphatase 160 U/L (45-117); Anion Gap 7 (5-15); Aspartate Aminotransferase 30 U/L (15-37); BUN/Creatinine Ratio 33.8; Bilirubin, Total 1.4 mg/dL (0.2-1.0); Blood Urea Nitrogen 22 mg/dL (7-18); Calcium 7.8 mg/dL (8.5-10.1); Carbon Dioxide 28 mmol/L (21-32); Chloride 117 mmol/L (98-107); GFR African American 156 mL/min; GFR Non-African American 129 mL/min; Glucose 123 mg/dL (74-106); Potassium 3.4 mmol/L (3.5-5.1); Sodium 152 mmol/L (136-145); Total Protein 6.2 g/dL (6.4-8.2)
[2018-03-20] MEDS: ACETAMINOPHEN 650 mg PER 20 mL UD GT PRN ×2 (08:14→14:53)
[2018-03-20] MEDS: PANTOPRAZOLE 40 MG/10 ML VIAL IV SCH (10:04)
[2018-03-20] MEDS: PRAMIPEXOLE DIHYDROCHLORIDE MO 0.25 MG TAB PO SCH ×2 (10:30→22:34)
[2018-03-20] MEDS: TRIHEXYPHENIDYL 5 MG NG SCH ×2 (10:30→22:36)
[2018-03-20] MEDS ORDERED: POTASSIUM CHL 10% (20 MEQ/15ML) 15ml ORAL SOLN GT ONE (11:15)
[2018-03-20] MEDS: OLANZapine 5 MG TAB PO SCH (11:43)
[2018-03-20] MEDS: CITALOPRAM HYDROBR 20 MG TAB PO SCH (11:45)
[2018-03-20] MEDS: RASAGILINE 1 MG NG SCH (11:47)
[2018-03-20] MEDS: D5W 5% 1,000 ML IV SCH (12:09)
[2018-03-21] VITALS: BP 111/66
[2018-03-21] MEDS: InsuLIN REG 1unit/0.01ml Soln (100units/ml) SC SCH ×4 (00:03→18:20)
[2018-03-21] MEDS: CARBIDOPA W LEVODOPA 25/100mg TABLET PO SCH ×12 (01:30→23:02)
[2018-03-21] MEDS: ACETAMINOPHEN 650 mg PER 20 mL UD GT PRN (02:38)
[2018-03-21] MEDS: VANCOMYCIN 1,250 MG in D5W 5% 250 ML IV SCH ×2 (03:01→14:45)
[2018-03-21 04:00] VITALS: BP 125/74
[2018-03-21 05:09] LABS: Basophils # (auto) 0 uL; Basophils % (auto) 0.5 % (0.0-2.0); Eosinophils # (auto) 0.1 uL; Eosinophils % (auto) 0.9 % (0.0-7.0); Hematocrit 25.9 % (41.0-53.0); Hemoglobin 8.8 g/dL (13.5-17.5); Lymphocytes # (auto) 1.1 uL; Lymphocytes % (auto) 10.7 % (10.0-50.0); Mean Corpuscular Volume 91.4 fL (80.0-100.0); Monocytes # (auto) 0.8 uL; Monocytes % (auto) 7.8 % (0.0-12.0); Neutrophils # (auto) 8.1 uL; Neutrophils % (auto) 80.1 % (37.0-80.0); Platelet Count (auto) 184 10^3/uL (140-450); Red Blood Cells 2.83 10^6/uL (4.5-5.90); Red Cell Distribution Width 16.8 % (11.8-14.3); White Blood Cell 10.1 10^3/uL (4.4-10.8)
[2018-03-21 05:24] LABS: INR 1.2 (0.9-1.15); Partial Thromboplastin Time 27.7 sec (22.64-33.71); Prothrombin Time 13.1 sec (9.37-12.3)
[2018-03-21 05:30] LABS: Albumin 1.9 g/dL (3.4-5.0); BUN/Creatinine Ratio 27.7; Bilirubin, Total 1.5 mg/dL (0.2-1.0); Calcium 8.1 mg/dL (8.5-10.1); Potassium 3.9 mmol/L (3.5-5.1); Total Protein 6.6 g/dL (6.4-8.2)
[2018-03-21] MEDS: IPRATROPIUM BROM 0.5 MG/2.5ML INH SOL NEB SCH ×4 (05:30→18:37)
[2018-03-21] MEDS: ALBUTEROL SULF 2.5 MG/0.5ML(0.5%) NEB SOLN NEB SCH ×4 (05:30→18:37)
[2018-03-21] MEDS: ACCU-CHEK COMFORT CURVE STRIP VI SCH ×3 (06:51→17:43)
[2018-03-21] MEDS: FREE WATER GT SCH ×3 (06:51→17:43)
[2018-03-21] MEDS: PIPERACILLIN-TAZOB 3.375GM 100 ML IV SCH ×3 (06:55→17:43)
[2018-03-21 08:00] VITALS: BP 114/83
[2018-03-21] MEDS: Fibersource Hn 1 Liter GT SCH (09:43)
[2018-03-21] MEDS: TRIHEXYPHENIDYL 5 MG NG SCH ×2 (11:03→23:01)
[2018-03-21] MEDS: RASAGILINE 1 MG NG SCH (11:03)
[2018-03-21] MEDS: PANTOPRAZOLE 40 MG/10 ML VIAL IV SCH (11:03)
[2018-03-21] MEDS: OLANZapine 5 MG TAB PO SCH (11:04)
[2018-03-21] MEDS: PRAMIPEXOLE DIHYDROCHLORIDE MO 0.25 MG TAB PO SCH ×2 (11:04→22:59)
[2018-03-21] MEDS: CITALOPRAM HYDROBR 20 MG TAB PO SCH (11:05)
[2018-03-21] MEDS: D5W 5% 1,000 ML IV SCH (11:05)
[2018-03-21 11:51] VITALS: BP 121/68
[2018-03-21 15:47] VITALS: BP 99/62
[2018-03-21 19:51] VITALS: BP 105/61
[2018-03-22] VITALS: BP 123/69
[2018-03-22] MEDS: ACCU-CHEK COMFORT CURVE STRIP VI SCH ×4 (00:01→18:21)
[2018-03-22] MEDS: FREE WATER GT SCH ×5 (00:01→23:59)
[2018-03-22] MEDS: ALBUTEROL SULF 2.5 MG/0.5ML(0.5%) NEB SOLN NEB SCH ×4 (00:22→18:31)
[2018-03-22] MEDS: IPRATROPIUM BROM 0.5 MG/2.5ML INH SOL NEB SCH ×4 (00:22→18:31)
[2018-03-22] MEDS: CARBIDOPA W LEVODOPA 25/100mg TABLET PO SCH ×12 (01:26→23:30)
[2018-03-22] MEDS: VANCOMYCIN 1,250 MG in D5W 5% 250 ML IV SCH ×2 (03:07→15:05)
[2018-03-22] MEDS: D5W 5% 1,000 ML IV SCH ×2 (03:15→23:15)
[2018-03-22] MEDS: PIPERACILLIN-TAZOB 3.375GM 100 ML IV SCH ×4 (05:56→18:21)
[2018-03-22] MEDS: InsuLIN REG 1unit/0.01ml Soln (100units/ml) SC SCH ×4 (05:56→17:44)
[2018-03-22 08:00] VITALS: BP 135/75
[2018-03-22 08:20] LABS: Basophils # (auto) 0 uL; Hemoglobin 7.9 g/dL (13.5-17.5); Lymphocytes # (auto) 0.5 uL; Monocytes # (auto) 0.5 uL
[2018-03-22 08:22] LABS: Basophils % (auto) 0.4 % (0.0-2.0); Eosinophils # (auto) 0.2 uL; Hematocrit 23.8 % (41.0-53.0); Mean Corpuscular Hemoglobin 30.3 pg (28.0-32.0); Mean Corpuscular Hgb Conc. 33.3 g/dL (32.0-36.0); Mean Corpuscular Volume 91.2 fL (80.0-100.0); Monocytes % (auto) 5.6 % (0.0-12.0); Neutrophils # (auto) 7.7 uL; Platelet Count (auto) 176 10^3/uL (140-450); Red Blood Cells 2.61 10^6/uL (4.5-5.90); Red Cell Distribution Width 16.2 % (11.8-14.3); White Blood Cell 8.9 10^3/uL (4.4-10.8)
[2018-03-22 08:36] LABS: BUN/Creatinine Ratio 23.3; Calcium 7.6 mg/dL (8.5-10.1); Potassium 3.9 mmol/L (3.5-5.1)
[2018-03-22] MEDS: OLANZapine 5 MG TAB PO SCH (11:47)
[2018-03-22] MEDS: PRAMIPEXOLE DIHYDROCHLORIDE MO 0.25 MG TAB PO SCH ×2 (11:47→22:20)
[2018-03-22] MEDS: TRIHEXYPHENIDYL 5 MG NG SCH ×2 (11:47→22:21)
[2018-03-22] MEDS: CITALOPRAM HYDROBR 20 MG TAB PO SCH (11:47)
[2018-03-22] MEDS: RASAGILINE 1 MG NG SCH (11:47)
[2018-03-22] MEDS: PANTOPRAZOLE 40 MG/10 ML VIAL IV SCH (11:48)
[2018-03-22 12:25] VITALS: BP 101/65
[2018-03-22] MEDS: DOXYCYCLINE 100MG/250ML 100 ML IV SCH (15:25)
[2018-03-22 15:50] VITALS: BP 106/73
[2018-03-22 19:52] VITALS: BP 128/75
[2018-03-22 23:50] VITALS: BP 119/61
[2018-03-23] MEDS: PIPERACILLIN-TAZOB 3.375GM 100 ML IV SCH ×5 (00:01→23:44)
[2018-03-23] MEDS: ACCU-CHEK COMFORT CURVE STRIP VI SCH ×4 (00:02→18:00)
[2018-03-23] MEDS: ALBUTEROL SULF 2.5 MG/0.5ML(0.5%) NEB SOLN NEB SCH ×4 (00:16→19:25)
[2018-03-23] MEDS: IPRATROPIUM BROM 0.5 MG/2.5ML INH SOL NEB SCH ×4 (00:16→19:25)
[2018-03-23] MEDS: CARBIDOPA W LEVODOPA 25/100mg TABLET PO SCH ×12 (01:30→23:38)
[2018-03-23] MEDS: VANCOMYCIN 1,250 MG in D5W 5% 250 ML IV SCH ×2 (02:48→14:49)
[2018-03-23] MEDS: DOXYCYCLINE 100MG/250ML 100 ML IV SCH ×2 (02:49→14:49)
[2018-03-23] MEDS: FREE WATER GT SCH ×3 (02:49→17:20)
[2018-03-23 04:25] VITALS: BP 104/62
[2018-03-23] MEDS: InsuLIN REG 1unit/0.01ml Soln (100units/ml) SC SCH ×5 (06:00→23:45)
[2018-03-23 06:07] LABS: Basophils # (auto) 0 uL; Basophils % (auto) 0.3 % (0.0-2.0); Eosinophils # (auto) 0.1 uL; Eosinophils % (auto) 1.4 % (0.0-7.0); Hematocrit 25.3 % (41.0-53.0); Hemoglobin 8.6 g/dL (13.5-17.5); Lymphocytes # (auto) 0.6 uL; Lymphocytes % (auto) 7.4 % (10.0-50.0); Mean Corpuscular Hemoglobin 31.1 pg (28.0-32.0); Mean Corpuscular Volume 91.5 fL (80.0-100.0); Monocytes # (auto) 0.6 uL; Monocytes % (auto) 7.6 % (0.0-12.0); Neutrophils % (auto) 83.3 % (37.0-80.0); Platelet Count (auto) 175 10^3/uL (140-450); Red Blood Cells 2.77 10^6/uL (4.5-5.90); Red Cell Distribution Width 16.3 % (11.8-14.3); White Blood Cell 8.5 10^3/uL (4.4-10.8)
[2018-03-23 06:18] LABS: Calcium 7.9 mg/dL (8.5-10.1); Potassium 4.1 mmol/L (3.5-5.1)
[2018-03-23] MEDS: PRAMIPEXOLE DIHYDROCHLORIDE MO 0.25 MG TAB PO SCH ×2 (10:00→21:27)
[2018-03-23] MEDS: CITALOPRAM HYDROBR 20 MG TAB PO SCH (10:00)
[2018-03-23] MEDS: TRIHEXYPHENIDYL 5 MG NG SCH ×2 (10:00→21:27)
[2018-03-23] MEDS: RASAGILINE 1 MG NG SCH (10:00)
[2018-03-23] MEDS: OLANZapine 5 MG TAB PO SCH (10:00)
[2018-03-23] MEDS: PANTOPRAZOLE 40 MG/10 ML VIAL IV SCH (10:29)
[2018-03-23] MEDS ORDERED: NITROGLYCERIN 0.4 MG SL TAB SL PRN (11:00)
[2018-03-23] MEDS ORDERED: FUROSEMIDE 20 MG/2 ML VIAL IV ONE (11:00)
[2018-03-23] MEDS ORDERED: DEXTROSE (50%) 50ML SYRG IV PRN (11:00)
[2018-03-23] MEDS ORDERED: MORPHINE SULFATE 8mg/ml INJ SDV IV PRN (11:00)
[2018-03-23] MEDS ORDERED: ONDANSETRON HCL 4 MG/2 ML VIAL IV ONE (11:30)
[2018-03-23] MEDS ORDERED: fentaNYL CITRATE 100 MCG/2 ML VL IV ONE (12:00)
[2018-03-23 12:19] VITALS: BP 141/75
[2018-03-23 15:50] VITALS: BP 101/65
[2018-03-23] MEDS: D5W 5% 1,000 ML IV SCH (18:40)
[2018-03-23 19:50] VITALS: BP 117/65
[2018-03-24] VITALS: BP 100/64
[2018-03-24] MEDS: IPRATROPIUM BROM 0.5 MG/2.5ML INH SOL NEB SCH ×4 (00:40→18:46)
[2018-03-24] MEDS: ALBUTEROL SULF 2.5 MG/0.5ML(0.5%) NEB SOLN NEB SCH ×4 (00:40→18:46)
[2018-03-24] MEDS: CARBIDOPA W LEVODOPA 25/100mg TABLET PO SCH ×12 (01:30→23:30)
[2018-03-24] MEDS: VANCOMYCIN 1,250 MG in D5W 5% 250 ML IV SCH ×2 (02:49→15:15)
[2018-03-24 04:00] VITALS: BP 131/60
[2018-03-24] MEDS: DOXYCYCLINE 100MG/250ML 100 ML IV SCH (05:02)
[2018-03-24 05:21] LABS: Basophils # (auto) 0.1 uL; Basophils % (auto) 0.7 % (0.0-2.0); Eosinophils # (auto) 0.2 uL; Eosinophils % (auto) 1.9 % (0.0-7.0); Hematocrit 28.9 % (41.0-53.0); Hemoglobin 9.5 g/dL (13.5-17.5); Lymphocytes # (auto) 0.9 uL; Lymphocytes % (auto) 10.5 % (10.0-50.0); Mean Corpuscular Hemoglobin 30.6 pg (28.0-32.0); Mean Corpuscular Volume 92.8 fL (80.0-100.0); Monocytes # (auto) 0.9 uL; Monocytes % (auto) 9.9 % (0.0-12.0); Nucleated Red Blood Cells % 0.1 %; Platelet Count (auto) 268 10^3/uL (140-450); Red Blood Cells 3.11 10^6/uL (4.5-5.90); Red Cell Distribution Width 16.6 % (11.8-14.3)
[2018-03-24 05:39] LABS: Alanine Aminotransferase < 6 U/L (16-61); Albumin 1.9 g/dL (3.4-5.0); Anion Gap 8 (5-15); Aspartate Aminotransferase 17 U/L (15-37); BUN/Creatinine Ratio 22.2; Blood Urea Nitrogen 12 mg/dL (7-18); Calcium 7.9 mg/dL (8.5-10.1); Carbon Dioxide 29 mmol/L (21-32); Chloride 111 mmol/L (98-107); GFR African American 193 mL/min; GFR Non-African American 160 mL/min; Glucose 115 mg/dL (74-106); Potassium 3.6 mmol/L (3.5-5.1); Sodium 148 mmol/L (136-145)
[2018-03-24 05:40] LABS: Alkaline Phosphatase 96 U/L (45-117); Bilirubin, Total 1.1 mg/dL (0.2-1.0); Total Protein 6.7 g/dL (6.4-8.2)
[2018-03-24] MEDS: FREE WATER GT SCH ×4 (06:00→17:18)
[2018-03-24] MEDS: InsuLIN REG 1unit/0.01ml Soln (100units/ml) SC SCH ×3 (06:00→17:36)
[2018-03-24] MEDS: ACCU-CHEK COMFORT CURVE STRIP VI SCH ×4 (06:00→17:33)
[2018-03-24] MEDS: PIPERACILLIN-TAZOB 3.375GM 100 ML IV SCH ×3 (06:30→22:00)
[2018-03-24 08:00] VITALS: BP 111/61
[2018-03-24] MEDS: D5W 5% 1,000 ML IV SCH (09:49)
[2018-03-24] MEDS: PANTOPRAZOLE 40 MG/10 ML VIAL IV SCH (09:51)
[2018-03-24] MEDS: RASAGILINE 1 MG NG SCH (09:53)
[2018-03-24] MEDS: TRIHEXYPHENIDYL 5 MG NG SCH ×2 (09:54→22:00)
[2018-03-24] MEDS: CITALOPRAM HYDROBR 20 MG TAB PO SCH (09:54)
[2018-03-24] MEDS: PRAMIPEXOLE DIHYDROCHLORIDE MO 0.25 MG TAB PO SCH ×2 (09:55→22:00)
[2018-03-24] MEDS: OLANZapine 5 MG TAB PO SCH (09:56)
[2018-03-24] MEDS ORDERED: ENOXAPARIN SOD 40 MG/0.4 ML SYRINGE SC SCH (10:00)
[2018-03-24] MEDS ORDERED: POTASSIUM CHL 10% (20 MEQ/15ML) 15ml ORAL SOLN PO ONE (10:00)
[2018-03-24] MEDS ORDERED: ENOXAPARIN SOD 40 MG/0.4 ML SYRINGE SC ONE (10:00)
[2018-03-24] MEDS ORDERED: FUROSEMIDE 40 MG/4 ML VIAL IV ONE (10:00)
[2018-03-24 10:42] LABS: INR 1.1 (0.9-1.15); Partial Thromboplastin Time 25.6 sec (22.64-33.71)
[2018-03-24 12:06] VITALS: BP 115/63
[2018-03-24 15:50] VITALS: BP 91/57
[2018-03-24] MEDS ORDERED: WARFARIN SODIUM 2 MG TAB PO ONE (17:00)
[2018-03-24 20:58] VITALS: BP 115/62
[2018-03-25] VITALS: BP 123/57
[2018-03-25] MEDS: ACCU-CHEK COMFORT CURVE STRIP VI SCH ×5 (00:10→23:21)
[2018-03-25] MEDS: InsuLIN REG 1unit/0.01ml Soln (100units/ml) SC SCH ×5 (00:25→23:21)
[2018-03-25] MEDS: ALBUTEROL SULF 2.5 MG/0.5ML(0.5%) NEB SOLN NEB SCH ×3 (00:48→19:08)
[2018-03-25] MEDS: IPRATROPIUM BROM 0.5 MG/2.5ML INH SOL NEB SCH ×3 (00:48→19:08)
[2018-03-25] MEDS: CARBIDOPA W LEVODOPA 25/100mg TABLET PO SCH ×12 (01:30→23:40)
[2018-03-25] MEDS: VANCOMYCIN 1,250 MG in D5W 5% 250 ML IV SCH ×2 (03:06→15:30)
[2018-03-25] MEDS: PIPERACILLIN-TAZOB 3.375GM 100 ML IV SCH ×3 (06:00→21:41)
[2018-03-25 06:03] LABS: INR 1.07 (0.9-1.15); Partial Thromboplastin Time 25.4 sec (22.64-33.71); Prothrombin Time 11.7 sec (9.37-12.3)
[2018-03-25 06:12] LABS: Potassium 4.6 mmol/L (3.5-5.1)
[2018-03-25 06:20] LABS: BUN/Creatinine Ratio 18.2; Calcium 8.4 mg/dL (8.5-10.1)
[2018-03-25] MEDS: FREE WATER GT SCH ×5 (06:24→23:21)
[2018-03-25 07:50] VITALS: BP 133/72
[2018-03-25] MEDS: PANTOPRAZOLE 40 MG/10 ML VIAL IV SCH (10:34)
[2018-03-25] MEDS: CITALOPRAM HYDROBR 20 MG TAB PO SCH (10:38)
[2018-03-25] MEDS: OLANZapine 5 MG TAB PO SCH (10:38)
[2018-03-25] MEDS: PRAMIPEXOLE DIHYDROCHLORIDE MO 0.25 MG TAB PO SCH ×2 (10:38→21:41)
[2018-03-25] MEDS: RASAGILINE 1 MG NG SCH (10:41)
[2018-03-25] MEDS: TRIHEXYPHENIDYL 5 MG NG SCH (10:41)
[2018-03-25] MEDS ORDERED: FLUCONAZOLE 200MG/100ML 100 ML IV ONE (11:15)
[2018-03-25 11:55] VITALS: BP 82/49
[2018-03-25] MEDS ORDERED: FUROSEMIDE 20 MG/2 ML VIAL IV ONE (13:00)
[2018-03-25] MEDS ORDERED: POTASSIUM CHL 10% (20 MEQ/15ML) 15ml ORAL SOLN GT ONE (13:00)
[2018-03-25 15:52] VITALS: BP 107/60
[2018-03-25] MEDS ORDERED: WARFARIN SODIUM 2 MG TAB PO ONE (17:00)
[2018-03-25 19:13] VITALS: BP 107/60
[2018-03-25 19:50] VITALS: BP 105/63
[2018-03-25] MEDS: [UNRECOGNIZED DRUG - OTHER] NG SCH (21:42)
[2018-03-26] VITALS (21 sets, daily range): BP systolic 88–148; BP diastolic 44–97
[2018-03-26] MEDS: IPRATROPIUM BROM 0.5 MG/2.5ML INH SOL NEB SCH ×4 (00:01→18:57)
[2018-03-26] MEDS: ALBUTEROL SULF 2.5 MG/0.5ML(0.5%) NEB SOLN NEB SCH ×4 (00:01→18:57)
[2018-03-26] MEDS: CARBIDOPA W LEVODOPA 25/100mg TABLET PO SCH ×12 (01:30→23:30)
[2018-03-26] MEDS: VANCOMYCIN 1,250 MG in D5W 5% 250 ML IV SCH (02:52)
[2018-03-26 05:24] LABS: Basophils # (auto) 0 uL; Basophils % (auto) 0.7 % (0.0-2.0); Eosinophils # (auto) 0.1 uL; Eosinophils % (auto) 2.5 % (0.0-7.0); Hematocrit 26.5 % (41.0-53.0); Hemoglobin 8.8 g/dL (13.5-17.5); Lymphocytes # (auto) 0.6 uL; Lymphocytes % (auto) 11.2 % (10.0-50.0); Mean Corpuscular Hemoglobin 31.1 pg (28.0-32.0); Mean Corpuscular Hgb Conc. 33.2 g/dL (32.0-36.0); Mean Corpuscular Volume 93.4 fL (80.0-100.0); Monocytes # (auto) 0.6 uL; Neutrophils # (auto) 3.9 uL; Neutrophils % (auto) 73.6 % (37.0-80.0); Platelet Count (auto) 227 10^3/uL (140-450); Red Blood Cells 2.84 10^6/uL (4.5-5.90); White Blood Cell 5.2 10^3/uL (4.4-10.8)
[2018-03-26] MEDS: FREE WATER GT SCH ×4 (05:35→23:54)
[2018-03-26] MEDS: PIPERACILLIN-TAZOB 3.375GM 100 ML IV SCH ×3 (05:35→23:00)
[2018-03-26] MEDS: ACCU-CHEK COMFORT CURVE STRIP VI SCH ×3 (05:36→18:24)
[2018-03-26 05:37] LABS: INR 1.15 (0.9-1.15); Partial Thromboplastin Time 28.9 sec (22.64-33.71); Prothrombin Time 12.5 sec (9.37-12.3)
[2018-03-26 05:45] LABS: Chloride 110 mmol/L (98-107); Potassium 3.7 mmol/L (3.5-5.1); Sodium 147 mmol/L (136-145)
[2018-03-26 05:50] LABS: Alanine Aminotransferase < 6 U/L (16-61); Albumin 1.8 g/dL (3.4-5.0); Anion Gap 6 (5-15); Aspartate Aminotransferase 16 U/L (15-37); BUN/Creatinine Ratio 18.7; Blood Urea Nitrogen 23 mg/dL (7-18); Calcium 8.1 mg/dL (8.5-10.1); Carbon Dioxide 31 mmol/L (21-32); GFR African American 75 mL/min; GFR Non-African American 62 mL/min; Glucose 167 mg/dL (74-106)
[2018-03-26 06:00] LABS: Alkaline Phosphatase 72 U/L (45-117); Bilirubin, Total 0.8 mg/dL (0.2-1.0); Total Protein 6.4 g/dL (6.4-8.2)
[2018-03-26] MEDS: InsuLIN REG 1unit/0.01ml Soln (100units/ml) SC SCH ×3 (06:45→18:00)
[2018-03-26] MEDS: PANTOPRAZOLE 40 MG/10 ML VIAL IV SCH (11:06)
[2018-03-26] MEDS: POTASSIUM CHL 10% (20 MEQ/15ML) 15ml ORAL SOLN GT SCH (11:06)
[2018-03-26] MEDS: FUROSEMIDE 20 MG/2 ML VIAL IV SCH (11:07)
[2018-03-26] MEDS: FLUCONAZOLE 200MG/100ML 100 ML IV SCH (11:08)
[2018-03-26] MEDS: RASAGILINE 1 MG NG SCH (11:08)
[2018-03-26] MEDS: [UNRECOGNIZED DRUG - OTHER] NG SCH ×2 (11:08→22:00)
[2018-03-26] MEDS: CITALOPRAM HYDROBR 20 MG TAB PO SCH (11:08)
[2018-03-26] MEDS: OLANZapine 5 MG TAB PO SCH (11:09)
[2018-03-26] MEDS: PRAMIPEXOLE DIHYDROCHLORIDE MO 0.25 MG TAB PO SCH ×2 (11:10→22:00)
[2018-03-26] MEDS ORDERED: WARFARIN SODIUM 10 MG TAB PO ONE (17:00)
[2018-03-26] MEDS ORDERED: LORazepam 2MG/ML-1ML VIAL ONE (17:40)
[2018-03-26] MEDS ORDERED: ETOMIDATE (2MG/ML) 20ML VIAL IV ONE (17:45)
[2018-03-26] MEDS ORDERED: LORazepam 2MG/ML-1ML VIAL IV ONE (17:45)
[2018-03-26] MEDS ORDERED: LORazepam 2MG/ML-1ML VIAL IV PRN (17:45)
[2018-03-26] MEDS ORDERED: SUCCINYLCHOLINE CHLORIDE 20 MG/ML 10ML VIAL IV ONE (17:46)
[2018-03-26] MEDS: MIDAZOLAM DRIP 50 mg/50mL 50 ML IV SCH (19:00)
[2018-03-26] MEDS ORDERED: MIDAZOLAM DRIP 50 mg/50mL 50 ML IV ONE ×3 (19:13→22:28)
[2018-03-26] MEDS ORDERED: MORPHINE SULFATE 8mg/ml INJ SDV IV PRN (19:30)
[2018-03-26] MEDS ORDERED: ONDANSETRON HCL 4 MG/2 ML VIAL IV PRN (19:30)
[2018-03-26] MEDS ORDERED: MIDAZOLAM HCL 5 MG/ML-1ML VIAL IV ONE (19:30)
[2018-03-27] VITALS (110 sets, daily range): BP systolic 81–141; BP diastolic 44–83
[2018-03-27] MEDS: IPRATROPIUM BROM 0.5 MG/2.5ML INH SOL NEB SCH ×4 (00:31→18:49)
[2018-03-27] MEDS: ALBUTEROL SULF 2.5 MG/0.5ML(0.5%) NEB SOLN NEB SCH ×5 (00:31→22:23)
[2018-03-27] MEDS: CARBIDOPA W LEVODOPA 25/100mg TABLET PO SCH ×9 (01:09→22:00)
[2018-03-27] MEDS: MIDAZOLAM DRIP 50 mg/50mL 50 ML IV SCH ×2 (01:14→04:45)
[2018-03-27] MEDS ORDERED: VANCOMYCIN 1,250 MG in SODIUM CHL 0.9% 250 ML IV SCH (03:00)
[2018-03-27 04:03] LABS: Basophils # (auto) 0 uL; Eosinophils # (auto) 0.1 uL; Eosinophils % (auto) 2.6 % (0.0-7.0); Lymphocytes # (auto) 0.6 uL; Neutrophils # (auto) 2.8 uL; Nucleated Red Blood Cells % 0.1 %
[2018-03-27 04:08] LABS: Basophils % (auto) 0.7 % (0.0-2.0); Hematocrit 22.3 % (41.0-53.0); Hemoglobin 7.3 g/dL (13.5-17.5); Lymphocytes % (auto) 14.8 % (10.0-50.0); Mean Corpuscular Hemoglobin 30.6 pg (28.0-32.0); Mean Corpuscular Volume 92.6 fL (80.0-100.0); Monocytes # (auto) 0.6 uL; Monocytes % (auto) 13.5 % (0.0-12.0); Neutrophils % (auto) 68.4 % (37.0-80.0); Platelet Count (auto) 187 10^3/uL (140-450); Red Cell Distribution Width 16.9 % (11.8-14.3); White Blood Cell 4.1 10^3/uL (4.4-10.8)
[2018-03-27 04:16] LABS: INR 1.43 (0.9-1.15); Partial Thromboplastin Time 31.7 sec (22.64-33.71); Prothrombin Time 15.6 sec (9.37-12.3)
[2018-03-27 04:26] LABS: Alanine Aminotransferase < 6 U/L (16-61); Albumin 1.7 g/dL (3.4-5.0); Alkaline Phosphatase 62 U/L (45-117); Anion Gap 5 (5-15); Aspartate Aminotransferase 14 U/L (15-37); BUN/Creatinine Ratio 18.1; Bilirubin, Total 0.8 mg/dL (0.2-1.0); Blood Urea Nitrogen 23 mg/dL (7-18); Carbon Dioxide 31 mmol/L (21-32); Chloride 111 mmol/L (98-107); GFR African American 72 mL/min; GFR Non-African American 60 mL/min; Glucose 101 mg/dL (74-106); Potassium 3.4 mmol/L (3.5-5.1); Sodium 147 mmol/L (136-145)
[2018-03-27] MEDS: ACCU-CHEK COMFORT CURVE STRIP VI SCH ×4 (06:00→17:42)
[2018-03-27] MEDS: PIPERACILLIN-TAZOB 3.375GM 100 ML IV SCH ×3 (06:00→22:00)
[2018-03-27] MEDS: FREE WATER GT SCH ×3 (06:00→17:43)
[2018-03-27] MEDS: InsuLIN REG 1unit/0.01ml Soln (100units/ml) SC SCH ×4 (06:00→17:42)
[2018-03-27] MEDS: PRAMIPEXOLE DIHYDROCHLORIDE MO 0.25 MG TAB PO SCH ×2 (10:00→22:00)
[2018-03-27] MEDS: POTASSIUM CHL 10% (20 MEQ/15ML) 15ml ORAL SOLN GT SCH (10:19)
[2018-03-27] MEDS: FLUCONAZOLE 200MG/100ML 100 ML IV SCH (10:19)
[2018-03-27] MEDS: FUROSEMIDE 20 MG/2 ML VIAL IV SCH (10:20)
[2018-03-27] MEDS: CITALOPRAM HYDROBR 20 MG TAB PO SCH (10:20)
[2018-03-27] MEDS: PANTOPRAZOLE 40 MG/10 ML VIAL IV SCH (10:20)
[2018-03-27] MEDS: OLANZapine 5 MG TAB PO SCH (10:21)
[2018-03-27] MEDS: RASAGILINE 1 MG NG SCH (10:21)
[2018-03-27] MEDS: [UNRECOGNIZED DRUG - OTHER] NG SCH ×2 (10:21→22:00)
[2018-03-27] MEDS: WARFARIN SODIUM 10 MG TAB PO ONE ×2 (17:00→17:43)
[2018-03-27] MEDS: methylPREDNISolone SOD SUCC 40 MG/ML VL IV SCH (18:50)
[2018-03-28] VITALS (87 sets, daily range): BP systolic 81–141; BP diastolic 44–79
[2018-03-28] MEDS: IPRATROPIUM BROM 0.5 MG/2.5ML INH SOL NEB SCH ×6 (02:30→22:04)
[2018-03-28] MEDS: ALBUTEROL SULF 2.5 MG/0.5ML(0.5%) NEB SOLN NEB SCH ×6 (02:30→22:04)
[2018-03-28] MEDS ORDERED: VANCOMYCIN 1,250 MG in D5W 5% 250 ML IV SCH (03:00)
[2018-03-28] MEDS ORDERED: VANCOMYCIN 1GM/250ML 250 ML IV ONE (03:00)
[2018-03-28] MEDS: MIDAZOLAM DRIP 50 mg/50mL 50 ML IV SCH ×2 (03:31→14:20)
[2018-03-28 04:32] LABS: Basophils # (auto) 0 uL; Eosinophils # (auto) 0 uL; Hematocrit 30.4 % (41.0-53.0); Hemoglobin 10.3 g/dL (13.5-17.5); Lymphocytes # (auto) 0.2 uL; Lymphocytes % (auto) 4.8 % (10.0-50.0); Mean Corpuscular Hemoglobin 30.2 pg (28.0-32.0); Mean Corpuscular Hgb Conc. 33.8 g/dL (32.0-36.0); Mean Corpuscular Volume 89.3 fL (80.0-100.0); Monocytes # (auto) 0.1 uL; Monocytes % (auto) 1.5 % (0.0-12.0); Neutrophils # (auto) 3.9 uL; Neutrophils % (auto) 93.7 % (37.0-80.0); Platelet Count (auto) 234 10^3/uL (140-450); Red Cell Distribution Width 17.2 % (11.8-14.3); White Blood Cell 4.2 10^3/uL (4.4-10.8)
[2018-03-28 04:40] LABS: INR 2.26 (0.9-1.15); Partial Thromboplastin Time 34.7 sec (22.64-33.71); Prothrombin Time 24.8 sec (9.37-12.3)
[2018-03-28 04:51] LABS: Alanine Aminotransferase < 6 U/L (16-61); Albumin 1.7 g/dL (3.4-5.0); Alkaline Phosphatase 78 U/L (45-117); Anion Gap 5 (5-15); Aspartate Aminotransferase 16 U/L (15-37); BUN/Creatinine Ratio 21.9; Bilirubin, Total 1.1 mg/dL (0.2-1.0); Blood Urea Nitrogen 28 mg/dL (7-18); Calcium 7.7 mg/dL (8.5-10.1); Carbon Dioxide 31 mmol/L (21-32); Chloride 107 mmol/L (98-107); GFR African American 71 mL/min; GFR Non-African American 59 mL/min; Glucose 237 mg/dL (74-106); Potassium 4.1 mmol/L (3.5-5.1); Sodium 143 mmol/L (136-145); Total Protein 6.7 g/dL (6.4-8.2)
[2018-03-28] MEDS: methylPREDNISolone SOD SUCC 40 MG/ML VL IV SCH ×5 (06:00→23:52)
[2018-03-28] MEDS: PIPERACILLIN-TAZOB 3.375GM 100 ML IV SCH ×3 (06:00→22:00)
[2018-03-28] MEDS: FREE WATER GT SCH ×5 (06:00→23:52)
[2018-03-28] MEDS: ACCU-CHEK COMFORT CURVE STRIP VI SCH ×5 (06:00→23:52)
[2018-03-28] MEDS: InsuLIN REG 1unit/0.01ml Soln (100units/ml) SC SCH ×5 (06:00→23:53)
[2018-03-28] MEDS: CARBIDOPA W LEVODOPA 25/100mg TABLET PO SCH ×3 (06:00→22:00)
[2018-03-28] MEDS: RASAGILINE 1 MG NG SCH (10:35)
[2018-03-28] MEDS: PRAMIPEXOLE DIHYDROCHLORIDE MO 0.25 MG TAB PO SCH ×2 (10:35→22:00)
[2018-03-28] MEDS: PANTOPRAZOLE 40 MG/10 ML VIAL IV SCH (10:36)
[2018-03-28] MEDS: FLUCONAZOLE 200MG/100ML 100 ML IV SCH (10:36)
[2018-03-28] MEDS: POTASSIUM CHL 10% (20 MEQ/15ML) 15ml ORAL SOLN GT SCH (10:37)
[2018-03-28] MEDS: FUROSEMIDE 20 MG/2 ML VIAL IV SCH (10:38)
[2018-03-28] MEDS: OLANZapine 5 MG TAB PO SCH (10:40)
[2018-03-28] MEDS: CITALOPRAM HYDROBR 20 MG TAB PO SCH (10:41)
[2018-03-28] MEDS: [UNRECOGNIZED DRUG - OTHER] NG SCH ×2 (10:44→22:00)
[2018-03-29] VITALS (86 sets, daily range): BP systolic 94–144; BP diastolic 52–97
[2018-03-29] MEDS: MIDAZOLAM DRIP 50 mg/50mL 50 ML IV SCH ×2 (03:00→13:29)
[2018-03-29 04:34] LABS: Basophils # (auto) 0 uL; Eosinophils # (auto) 0 uL; Hematocrit 29.7 % (41.0-53.0); Lymphocytes # (auto) 0.3 uL; Lymphocytes % (auto) 5.8 % (10.0-50.0); Mean Corpuscular Hgb Conc. 33.5 g/dL (32.0-36.0); Mean Corpuscular Volume 89.5 fL (80.0-100.0); Monocytes # (auto) 0.2 uL; Monocytes % (auto) 3.5 % (0.0-12.0); Neutrophils # (auto) 5.1 uL; Neutrophils % (auto) 90.7 % (37.0-80.0); Platelet Count (auto) 275 10^3/uL (140-450); Red Blood Cells 3.32 10^6/uL (4.5-5.90); Red Cell Distribution Width 16.8 % (11.8-14.3); White Blood Cell 5.6 10^3/uL (4.4-10.8)
[2018-03-29 04:47] LABS: INR 2.45 (0.9-1.15); Partial Thromboplastin Time 37.8 sec (22.64-33.71)
[2018-03-29 04:54] LABS: BUN/Creatinine Ratio 29.8; Potassium 4.1 mmol/L (3.5-5.1)
[2018-03-29] MEDS: ALBUTEROL SULF 2.5 MG/0.5ML(0.5%) NEB SOLN NEB SCH ×5 (05:38→22:20)
[2018-03-29] MEDS: InsuLIN REG 1unit/0.01ml Soln (100units/ml) SC SCH ×3 (06:00→17:19)
[2018-03-29] MEDS: FREE WATER GT SCH ×3 (06:00→17:18)
[2018-03-29] MEDS: ACCU-CHEK COMFORT CURVE STRIP VI SCH ×3 (06:00→17:19)
[2018-03-29] MEDS: methylPREDNISolone SOD SUCC 40 MG/ML VL IV SCH ×3 (06:00→17:19)
[2018-03-29] MEDS: CARBIDOPA W LEVODOPA 25/100mg TABLET PO SCH ×2 (06:00→12:22)
[2018-03-29] MEDS: PIPERACILLIN-TAZOB 3.375GM 100 ML IV SCH ×3 (06:00→22:05)
[2018-03-29] MEDS: IPRATROPIUM BROM 0.5 MG/2.5ML INH SOL NEB SCH ×4 (09:59→22:20)
[2018-03-29] MEDS: RASAGILINE 1 MG NG SCH (10:00)
[2018-03-29] MEDS: PRAMIPEXOLE DIHYDROCHLORIDE MO 0.25 MG TAB PO SCH ×2 (10:00→19:48)
[2018-03-29] MEDS: SOD CHL 0.45% 1,000 ML IV SCH ×2 (10:27→23:35)
[2018-03-29] MEDS: PANTOPRAZOLE 40 MG/10 ML VIAL IV SCH (10:41)
[2018-03-29] MEDS: FUROSEMIDE 20 MG/2 ML VIAL IV SCH (10:41)
[2018-03-29] MEDS: CITALOPRAM HYDROBR 20 MG TAB PO SCH (10:42)
[2018-03-29] MEDS: FLUCONAZOLE 200MG/100ML 100 ML IV SCH (10:42)
[2018-03-29] MEDS: OLANZapine 5 MG TAB PO SCH (10:42)
[2018-03-29] MEDS: POTASSIUM CHL 10% (20 MEQ/15ML) 15ml ORAL SOLN GT SCH (10:42)
[2018-03-29] MEDS: [UNRECOGNIZED DRUG - OTHER] NG SCH ×2 (10:43→22:10)
[2018-03-29 11:13] LABS: Urine Bacteria NONE SEEN /hpf (None Seen); Urine Blood 3+ /uL (Negative); Urine Mucus FEW (None Seen); Urine Specific Gravity 1.026 (1.001-1.035); Urine WBC 15 /hpf (0 - 3)
[2018-03-29 11:23] LABS: Protein, Urine 62.6 mg/dL (0.0-11.9)
[2018-03-29] MEDS ORDERED: METOCLOPRAMIDE HCL 5MG/ml INJ 2ml VIAL IV SCH (14:00)
[2018-03-30] VITALS (85 sets, daily range): BP systolic 109–143; BP diastolic 60–97
[2018-03-30] MEDS: MIDAZOLAM DRIP 50 mg/50mL 50 ML IV SCH ×3 (01:00→22:55)
[2018-03-30] MEDS: methylPREDNISolone SOD SUCC 40 MG/ML VL IV SCH ×4 (01:00→17:44)
[2018-03-30] MEDS: ACCU-CHEK COMFORT CURVE STRIP VI SCH ×4 (01:01→17:44)
[2018-03-30] MEDS: InsuLIN REG 1unit/0.01ml Soln (100units/ml) SC SCH ×4 (01:01→17:44)
[2018-03-30] MEDS: FREE WATER GT SCH ×4 (01:01→17:44)
[2018-03-30 04:46] LABS: INR 2.44 (0.9-1.15); Partial Thromboplastin Time 35.5 sec (22.64-33.71); Prothrombin Time 26.8 sec (9.37-12.3)
[2018-03-30] MEDS: ALBUTEROL SULF 2.5 MG/0.5ML(0.5%) NEB SOLN NEB SCH ×5 (05:40→22:05)
[2018-03-30] MEDS: PIPERACILLIN-TAZOB 3.375GM 100 ML IV SCH ×3 (06:03→20:58)
[2018-03-30] MEDS: FUROSEMIDE 20 MG/2 ML VIAL IV SCH (09:43)
[2018-03-30] MEDS: FLUCONAZOLE 200MG/100ML 100 ML IV SCH (09:43)
[2018-03-30] MEDS: PANTOPRAZOLE 40 MG/10 ML VIAL IV SCH (09:43)
[2018-03-30] MEDS: POTASSIUM CHL 10% (20 MEQ/15ML) 15ml ORAL SOLN GT SCH (09:44)
[2018-03-30] MEDS: CITALOPRAM HYDROBR 20 MG TAB PO SCH (09:44)
[2018-03-30] MEDS: [UNRECOGNIZED DRUG - OTHER] NG SCH ×2 (09:45→20:57)
[2018-03-30] MEDS: OLANZapine 5 MG TAB PO SCH (09:45)
[2018-03-30] MEDS: RASAGILINE 1 MG NG SCH (09:45)
[2018-03-30] MEDS: POLYETHYLENE GLYCOL 17 GM PWDR PO SCH (09:45)
[2018-03-30] MEDS: PRAMIPEXOLE DIHYDROCHLORIDE MO 0.25 MG TAB PO SCH ×2 (09:45→22:00)
[2018-03-30] MEDS: IPRATROPIUM BROM 0.5 MG/2.5ML INH SOL NEB SCH ×3 (10:18→18:55)
[2018-03-30] MEDS: SOD CHL 0.45% 1,000 ML IV SCH ×2 (12:30→20:57)
[2018-03-30] MEDS ORDERED: WARFARIN SODIUM 2 MG TAB PO ONE (17:00)
[2018-03-30] MEDS: CARBIDOPA W LEVODOPA 25/100mg TABLET PO SCH (22:00)
[2018-03-31] VITALS (84 sets, daily range): BP systolic 109–140; BP diastolic 53–94
[2018-03-31] MEDS: FREE WATER GT SCH ×5 (00:11→23:37)
[2018-03-31] MEDS: methylPREDNISolone SOD SUCC 40 MG/ML VL IV SCH ×2 (00:12→06:17)
[2018-03-31] MEDS: InsuLIN REG 1unit/0.01ml Soln (100units/ml) SC SCH ×5 (00:12→23:37)
[2018-03-31] MEDS: ACCU-CHEK COMFORT CURVE STRIP VI SCH ×5 (00:12→23:37)
[2018-03-31] MEDS: ALBUTEROL SULF 2.5 MG/0.5ML(0.5%) NEB SOLN NEB SCH ×5 (02:32→22:09)
[2018-03-31 04:49] LABS: Basophils # (auto) 0 uL; Eosinophils # (auto) 0 uL; Hematocrit 27.5 % (41.0-53.0); Hemoglobin 9.3 g/dL (13.5-17.5); Lymphocytes # (auto) 0.3 uL; Lymphocytes % (auto) 4.7 % (10.0-50.0); Mean Corpuscular Hemoglobin 30.4 pg (28.0-32.0); Mean Corpuscular Hgb Conc. 33.7 g/dL (32.0-36.0); Mean Corpuscular Volume 90.2 fL (80.0-100.0); Monocytes # (auto) 0.2 uL; Monocytes % (auto) 3.3 % (0.0-12.0); Neutrophils # (auto) 5.5 uL; Platelet Count (auto) 251 10^3/uL (140-450); Red Blood Cells 3.05 10^6/uL (4.5-5.90); Red Cell Distribution Width 16.2 % (11.8-14.3)
[2018-03-31 05:14] LABS: Albumin 1.8 g/dL (3.4-5.0); Potassium 4.5 mmol/L (3.5-5.1)
[2018-03-31 05:16] LABS: BUN/Creatinine Ratio 40.5
[2018-03-31 05:23] LABS: Bilirubin, Total 0.4 mg/dL (0.2-1.0); Total Protein 6.1 g/dL (6.4-8.2)
[2018-03-31 05:50] LABS: INR 2.64 (0.9-1.15); Prothrombin Time 29.1 sec (9.37-12.3)
[2018-03-31] MEDS: IPRATROPIUM BROM 0.5 MG/2.5ML INH SOL NEB SCH ×3 (05:57→18:35)
[2018-03-31] MEDS: CARBIDOPA W LEVODOPA 25/100mg TABLET PO SCH ×4 (06:00→22:18)
[2018-03-31] MEDS: PIPERACILLIN-TAZOB 3.375GM 100 ML IV SCH ×3 (06:17→22:17)
[2018-03-31] MEDS: FLUCONAZOLE 200MG/100ML 100 ML IV SCH (10:06)
[2018-03-31] MEDS: POTASSIUM CHL 10% (20 MEQ/15ML) 15ml ORAL SOLN GT SCH (10:06)
[2018-03-31] MEDS: FUROSEMIDE 20 MG/2 ML VIAL IV SCH (10:06)
[2018-03-31] MEDS: PANTOPRAZOLE 40 MG/10 ML VIAL IV SCH (10:06)
[2018-03-31] MEDS ORDERED: ACETAMINOPHEN 650 mg PER 20 mL UD GT PRN (11:45)
[2018-03-31] MEDS ORDERED: Fibersource Hn 1 Liter GT SCH (12:00)
[2018-03-31] MEDS: POLYETHYLENE GLYCOL 17 GM PWDR PO SCH (13:00)
[2018-03-31] MEDS ORDERED: WARFARIN SODIUM 1 MG TAB PO ONE (17:00)
[2018-04-01] VITALS (101 sets, daily range): BP systolic 102–156; BP diastolic 65–87
[2018-04-01] MEDS: ALBUTEROL SULF 2.5 MG/0.5ML(0.5%) NEB SOLN NEB SCH ×6 (02:10→22:11)
[2018-04-01] MEDS: MIDAZOLAM DRIP 50 mg/50mL 50 ML IV SCH ×2 (02:55→15:52)
[2018-04-01 04:16] LABS: Albumin 1.9 g/dL (3.4-5.0); BUN/Creatinine Ratio 42.9; Bilirubin, Total 0.5 mg/dL (0.2-1.0); Calcium 7.9 mg/dL (8.5-10.1); Potassium 4.3 mmol/L (3.5-5.1); Total Protein 6.2 g/dL (6.4-8.2)
[2018-04-01 04:21] LABS: Basophils # (auto) 0 uL; Eosinophils # (auto) 0 uL; Hematocrit 28.8 % (41.0-53.0); Hemoglobin 9.8 g/dL (13.5-17.5); Lymphocytes # (auto) 0.5 uL; Lymphocytes % (auto) 7.1 % (10.0-50.0); Mean Corpuscular Hemoglobin 30.4 pg (28.0-32.0); Mean Corpuscular Hgb Conc. 34.1 g/dL (32.0-36.0); Mean Corpuscular Volume 89.2 fL (80.0-100.0); Monocytes # (auto) 0.7 uL; Neutrophils # (auto) 5.5 uL; Neutrophils % (auto) 82.9 % (37.0-80.0); Nucleated Red Blood Cells % 0.4 %; Platelet Count (auto) 254 10^3/uL (140-450); Red Blood Cells 3.23 10^6/uL (4.5-5.90); Red Cell Distribution Width 15.8 % (11.8-14.3); White Blood Cell 6.6 10^3/uL (4.4-10.8)
[2018-04-01 04:40] LABS: INR 2.94 (0.9-1.15); Prothrombin Time 32.4 sec (9.37-12.3)
[2018-04-01] MEDS: CARBIDOPA W LEVODOPA 25/100mg TABLET PO SCH ×4 (05:42→21:44)
[2018-04-01] MEDS: PIPERACILLIN-TAZOB 3.375GM 100 ML IV SCH ×3 (05:42→21:44)
[2018-04-01] MEDS: ACCU-CHEK COMFORT CURVE STRIP VI SCH ×4 (05:42→23:44)
[2018-04-01] MEDS: InsuLIN REG 1unit/0.01ml Soln (100units/ml) SC SCH ×4 (05:43→23:44)
[2018-04-01] MEDS: FREE WATER GT SCH ×4 (05:55→23:44)
[2018-04-01] MEDS: IPRATROPIUM BROM 0.5 MG/2.5ML INH SOL NEB SCH ×5 (06:15→22:11)
[2018-04-01] MEDS: POTASSIUM CHL 10% (20 MEQ/15ML) 15ml ORAL SOLN GT SCH (10:00)
[2018-04-01] MEDS: FLUCONAZOLE 200MG/100ML 100 ML IV SCH (10:04)
[2018-04-01] MEDS: OLANZapine 5 MG TAB PO SCH (10:04)
[2018-04-01] MEDS: PANTOPRAZOLE 40 MG/10 ML VIAL IV SCH (10:04)
[2018-04-01] MEDS: CITALOPRAM HYDROBR 20 MG TAB PO SCH (10:05)
[2018-04-01] MEDS: POLYETHYLENE GLYCOL 17 GM PWDR PO SCH (10:05)
[2018-04-01] MEDS ORDERED: WARFARIN SODIUM 1 MG TAB PO ONE (17:00)
[2018-04-02] VITALS (86 sets, daily range): BP systolic 91–147; BP diastolic 50–84
[2018-04-02] MEDS: ALBUTEROL SULF 2.5 MG/0.5ML(0.5%) NEB SOLN NEB SCH ×6 (02:56→22:18)
[2018-04-02 03:09] LABS: Basophils # (auto) 0 uL; Eosinophils # (auto) 0.1 uL; Eosinophils % (auto) 0.8 % (0.0-7.0); Hematocrit 28.8 % (41.0-53.0); Hemoglobin 9.7 g/dL (13.5-17.5); Lymphocytes # (auto) 0.7 uL; Lymphocytes % (auto) 8.7 % (10.0-50.0); Mean Corpuscular Hemoglobin 30.1 pg (28.0-32.0); Mean Corpuscular Hgb Conc. 33.6 g/dL (32.0-36.0); Mean Corpuscular Volume 89.5 fL (80.0-100.0); Monocytes # (auto) 0.8 uL; Monocytes % (auto) 9.7 % (0.0-12.0); Neutrophils # (auto) 6.6 uL; Neutrophils % (auto) 80.8 % (37.0-80.0); Platelet Count (auto) 234 10^3/uL (140-450); Red Blood Cells 3.22 10^6/uL (4.5-5.90); White Blood Cell 8.2 10^3/uL (4.4-10.8)
[2018-04-02 03:20] LABS: INR 3.34 (0.9-1.15); Partial Thromboplastin Time 38.7 sec (22.64-33.71); Prothrombin Time 36.9 sec (9.37-12.3)
[2018-04-02 03:23] LABS: Potassium 4.4 mmol/L (3.5-5.1)
[2018-04-02 03:29] LABS: Albumin 1.7 g/dL (3.4-5.0); BUN/Creatinine Ratio 44.7; Calcium 7.8 mg/dL (8.5-10.1)
[2018-04-02 03:32] LABS: Bilirubin, Total 0.9 mg/dL (0.2-1.0); Total Protein 5.6 g/dL (6.4-8.2)
[2018-04-02] MEDS: MIDAZOLAM DRIP 50 mg/50mL 50 ML IV SCH (04:54)
[2018-04-02] MEDS: InsuLIN REG 1unit/0.01ml Soln (100units/ml) SC SCH ×3 (06:00→17:41)
[2018-04-02] MEDS: IPRATROPIUM BROM 0.5 MG/2.5ML INH SOL NEB SCH ×4 (06:21→18:42)
[2018-04-02] MEDS: ACCU-CHEK COMFORT CURVE STRIP VI SCH ×3 (06:24→17:33)
[2018-04-02] MEDS: FREE WATER GT SCH ×3 (06:24→17:33)
[2018-04-02] MEDS: CARBIDOPA W LEVODOPA 25/100mg TABLET PO SCH ×2 (06:25→14:51)
[2018-04-02] MEDS: PIPERACILLIN-TAZOB 3.375GM 100 ML IV SCH ×3 (06:25→22:35)
[2018-04-02] MEDS ORDERED: FUROSEMIDE 20 MG/2 ML VIAL IV ONE ×2 (09:30→12:15)
[2018-04-02] MEDS: FLUCONAZOLE 200MG/100ML 100 ML IV SCH (09:57)
[2018-04-02] MEDS: PANTOPRAZOLE 40 MG/10 ML VIAL IV SCH (09:57)
[2018-04-02] MEDS: POTASSIUM CHL 10% (20 MEQ/15ML) 15ml ORAL SOLN GT SCH (09:59)
[2018-04-02] MEDS: CITALOPRAM HYDROBR 20 MG TAB PO SCH (10:00)
[2018-04-02] MEDS: OLANZapine 5 MG TAB PO SCH (10:00)
[2018-04-02] MEDS: POLYETHYLENE GLYCOL 17 GM PWDR PO SCH (10:00)
[2018-04-02] MEDS ORDERED: POTASSIUM CHL 10% (20 MEQ/15ML) 15ml ORAL SOLN GT ONE (12:15)
[2018-04-03] VITALS (23 sets, daily range): BP systolic 97–135; BP diastolic 56–88
[2018-04-03] MEDS: ACCU-CHEK COMFORT CURVE STRIP VI SCH ×4 (00:37→18:17)
[2018-04-03] MEDS: FREE WATER GT SCH ×4 (00:37→18:16)
[2018-04-03] MEDS: InsuLIN REG 1unit/0.01ml Soln (100units/ml) SC SCH ×4 (00:38→18:00)
[2018-04-03] MEDS: ALBUTEROL SULF 2.5 MG/0.5ML(0.5%) NEB SOLN NEB SCH ×6 (02:51→22:14)
[2018-04-03 03:56] LABS: Basophils # (auto) 0 uL; Basophils % (auto) 0.1 % (0.0-2.0); Eosinophils # (auto) 0.2 uL; Eosinophils % (auto) 2.3 % (0.0-7.0); Hematocrit 31.4 % (41.0-53.0); Hemoglobin 10.7 g/dL (13.5-17.5); Lymphocytes # (auto) 0.8 uL; Lymphocytes % (auto) 7.6 % (10.0-50.0); Mean Corpuscular Hemoglobin 30.4 pg (28.0-32.0); Mean Corpuscular Hgb Conc. 34.1 g/dL (32.0-36.0); Mean Corpuscular Volume 89.2 fL (80.0-100.0); Monocytes # (auto) 0.7 uL; Monocytes % (auto) 6.4 % (0.0-12.0); Neutrophils # (auto) 8.5 uL; Neutrophils % (auto) 83.6 % (37.0-80.0); Nucleated Red Blood Cells % 0.1 %; Platelet Count (auto) 259 10^3/uL (140-450); Red Blood Cells 3.52 10^6/uL (4.5-5.90); White Blood Cell 10.2 10^3/uL (4.4-10.8)
[2018-04-03 04:03] LABS: BUN/Creatinine Ratio 33.6; Bilirubin, Total 0.5 mg/dL (0.2-1.0); Calcium 8.1 mg/dL (8.5-10.1); Potassium 4.8 mmol/L (3.5-5.1); Total Protein 6.1 g/dL (6.4-8.2)
[2018-04-03 04:58] LABS: INR 2.65 (0.9-1.15); Partial Thromboplastin Time 40.1 sec (22.64-33.71); Prothrombin Time 29.2 sec (9.37-12.3)
[2018-04-03] MEDS: PIPERACILLIN-TAZOB 3.375GM 100 ML IV SCH ×3 (05:52→22:00)
[2018-04-03] MEDS: CARBIDOPA W LEVODOPA 25/100mg TABLET PO SCH ×4 (06:30→18:17)
[2018-04-03] MEDS: IPRATROPIUM BROM 0.5 MG/2.5ML INH SOL NEB SCH ×5 (07:46→22:15)
[2018-04-03] MEDS: FLUCONAZOLE 200MG/100ML 100 ML IV SCH (09:49)
[2018-04-03] MEDS: CITALOPRAM HYDROBR 20 MG TAB PO SCH (09:50)
[2018-04-03] MEDS: POLYETHYLENE GLYCOL 17 GM PWDR PO SCH (09:51)
[2018-04-03] MEDS: OLANZapine 5 MG TAB PO SCH (09:52)
[2018-04-03] MEDS: PANTOPRAZOLE 40 MG/10 ML VIAL IV SCH (09:53)
[2018-04-03] MEDS: POTASSIUM CHL 10% (20 MEQ/15ML) 15ml ORAL SOLN GT SCH (09:54)
[2018-04-03] MEDS ORDERED: LORazepam 2MG/ML-1ML VIAL IV PRN (12:30)
[2018-04-03] MEDS ORDERED: MORPHINE SULFATE 8mg/ml INJ SDV IV PRN (12:30)
[2018-04-03] MEDS ORDERED: WARFARIN SODIUM 1 MG TAB PO ONE (17:00)
[2018-04-04] VITALS (18 sets, daily range): BP systolic 106–148; BP diastolic 55–79
[2018-04-04 04:37] LABS: Basophils # (auto) 0 uL; Basophils % (auto) 0.1 % (0.0-2.0); Eosinophils # (auto) 0.4 uL; Eosinophils % (auto) 4.9 % (0.0-7.0); Hematocrit 30.4 % (41.0-53.0); Hemoglobin 10.2 g/dL (13.5-17.5); Lymphocytes # (auto) 0.7 uL; Lymphocytes % (auto) 8.1 % (10.0-50.0); Mean Corpuscular Hemoglobin 30.2 pg (28.0-32.0); Mean Corpuscular Hgb Conc. 33.4 g/dL (32.0-36.0); Mean Corpuscular Volume 90.3 fL (80.0-100.0); Monocytes # (auto) 0.6 uL; Monocytes % (auto) 6.8 % (0.0-12.0); Neutrophils # (auto) 6.8 uL; Neutrophils % (auto) 80.1 % (37.0-80.0); Platelet Count (auto) 217 10^3/uL (140-450); Red Blood Cells 3.37 10^6/uL (4.5-5.90); Red Cell Distribution Width 15.7 % (11.8-14.3); White Blood Cell 8.5 10^3/uL (4.4-10.8)
[2018-04-04 04:59] LABS: INR 2.5 (0.9-1.15); Partial Thromboplastin Time 43.4 sec (22.64-33.71); Prothrombin Time 27.5 sec (9.37-12.3)
[2018-04-04 05:03] LABS: Albumin 1.8 g/dL (3.4-5.0); Calcium 7.9 mg/dL (8.5-10.1); Potassium 4.9 mmol/L (3.5-5.1)
[2018-04-04 05:08] LABS: Bilirubin, Total 0.6 mg/dL (0.2-1.0)
[2018-04-04] MEDS: FREE WATER GT SCH ×4 (05:49→17:13)
[2018-04-04] MEDS: ACCU-CHEK COMFORT CURVE STRIP VI SCH ×4 (05:50→17:13)
[2018-04-04] MEDS: InsuLIN REG 1unit/0.01ml Soln (100units/ml) SC SCH ×4 (05:50→17:41)
[2018-04-04] MEDS: PIPERACILLIN-TAZOB 3.375GM 100 ML IV SCH ×3 (05:50→21:02)
[2018-04-04] MEDS: CARBIDOPA W LEVODOPA 25/100mg TABLET PO SCH ×3 (05:52→15:08)
[2018-04-04] MEDS: ALBUTEROL SULF 2.5 MG/0.5ML(0.5%) NEB SOLN NEB SCH ×6 (07:35→19:19)
[2018-04-04] MEDS: FLUCONAZOLE 200MG/100ML 100 ML IV SCH (09:50)
[2018-04-04] MEDS: POLYETHYLENE GLYCOL 17 GM PWDR PO SCH (09:50)
[2018-04-04] MEDS: PANTOPRAZOLE 40 MG/10 ML VIAL IV SCH (09:51)
[2018-04-04] MEDS: POTASSIUM CHL 10% (20 MEQ/15ML) 15ml ORAL SOLN GT SCH (09:52)
[2018-04-04] MEDS: AZILECT 1 MG PO SCH (09:53)
[2018-04-04] MEDS: CITALOPRAM HYDROBR 20 MG TAB PO SCH (09:54)
[2018-04-04] MEDS: OLANZapine 5 MG TAB PO SCH (09:54)
[2018-04-04] MEDS: IPRATROPIUM BROM 0.5 MG/2.5ML INH SOL NEB SCH ×3 (10:22→19:10)
[2018-04-04] MEDS ORDERED: WARFARIN SODIUM 1 MG TAB PO ONE (17:00)
[2018-04-05] MEDS: FREE WATER GT SCH ×5 (00:20→23:49)
[2018-04-05] MEDS: ACCU-CHEK COMFORT CURVE STRIP VI SCH ×5 (00:20→23:49)
[2018-04-05 00:21] VITALS: BP 135/80
[2018-04-05] MEDS: PIPERACILLIN-TAZOB 3.375GM 100 ML IV SCH ×3 (05:06→21:28)
[2018-04-05 05:44] LABS: INR 2.1 (0.9-1.15); Partial Thromboplastin Time 39.8 sec (22.64-33.71); Prothrombin Time 23.1 sec (9.37-12.3)
[2018-04-05] MEDS: InsuLIN REG 1unit/0.01ml Soln (100units/ml) SC SCH ×5 (05:53→23:49)
[2018-04-05] MEDS: IPRATROPIUM BROM 0.5 MG/2.5ML INH SOL NEB SCH ×5 (06:55→21:48)
[2018-04-05] MEDS: ALBUTEROL SULF 2.5 MG/0.5ML(0.5%) NEB SOLN NEB SCH ×6 (06:55→21:53)
[2018-04-05 07:59] VITALS: BP 146/85
[2018-04-05] MEDS: POLYETHYLENE GLYCOL 17 GM PWDR PO SCH (10:00)
[2018-04-05] MEDS: POTASSIUM CHL 10% (20 MEQ/15ML) 15ml ORAL SOLN GT SCH (10:10)
[2018-04-05] MEDS: PANTOPRAZOLE 40 MG/10 ML VIAL IV SCH (10:10)
[2018-04-05] MEDS: FLUCONAZOLE 200MG/100ML 100 ML IV SCH (10:10)
[2018-04-05] MEDS: CITALOPRAM HYDROBR 20 MG TAB PO SCH (10:11)
[2018-04-05] MEDS: OLANZapine 5 MG TAB PO SCH (10:11)
[2018-04-05] MEDS: CARBIDOPA W LEVODOPA 25/100mg TABLET PO SCH ×2 (10:11→21:44)
[2018-04-05] MEDS: AZILECT 1 MG PO SCH (10:12)
[2018-04-05 11:50] VITALS: BP 106/70
[2018-04-05 15:56] VITALS: BP 140/80
[2018-04-05] MEDS ORDERED: WARFARIN SODIUM 2 MG TAB PO ONE (17:00)
[2018-04-05] MEDS: MORPHINE SULFATE 8mg/ml INJ SDV IV PRN (18:10)
[2018-04-05 19:50] VITALS: BP 128/73
[2018-04-05 23:44] VITALS: BP 105/68
[2018-04-06 04:00] VITALS: BP 130/79
[2018-04-06 05:38] LABS: INR 1.81 (0.9-1.15); Partial Thromboplastin Time 48.8 sec (22.64-33.71); Prothrombin Time 19.8 sec (9.37-12.3)
[2018-04-06] MEDS: InsuLIN REG 1unit/0.01ml Soln (100units/ml) SC SCH ×3 (06:00→17:53)
[2018-04-06] MEDS: ACCU-CHEK COMFORT CURVE STRIP VI SCH ×3 (06:12→17:50)
[2018-04-06] MEDS: PIPERACILLIN-TAZOB 3.375GM 100 ML IV SCH ×3 (06:12→22:44)
[2018-04-06] MEDS: FREE WATER GT SCH ×3 (06:12→17:50)
[2018-04-06] MEDS: ALBUTEROL SULF 2.5 MG/0.5ML(0.5%) NEB SOLN NEB SCH ×6 (06:43→22:23)
[2018-04-06] MEDS: IPRATROPIUM BROM 0.5 MG/2.5ML INH SOL NEB SCH ×6 (06:43→22:23)
[2018-04-06 08:00] VITALS: BP 142/81
[2018-04-06] MEDS: PRO-STAT 64 30ML GT SCH ×2 (10:00→22:00)
[2018-04-06] MEDS: POLYETHYLENE GLYCOL 17 GM PWDR PO SCH (10:00)
[2018-04-06] MEDS: POTASSIUM CHL 10% (20 MEQ/15ML) 15ml ORAL SOLN GT SCH (10:38)
[2018-04-06] MEDS: FLUCONAZOLE 200MG/100ML 100 ML IV SCH (10:38)
[2018-04-06] MEDS: PANTOPRAZOLE 40 MG/10 ML VIAL IV SCH (10:39)
[2018-04-06] MEDS: OLANZapine 5 MG TAB PO SCH (10:40)
[2018-04-06] MEDS: CITALOPRAM HYDROBR 20 MG TAB PO SCH (10:40)
[2018-04-06] MEDS: AZILECT 1 MG PO SCH (10:44)
[2018-04-06] MEDS: CARBIDOPA W LEVODOPA 25/100mg TABLET PO SCH ×3 (10:46→18:27)
[2018-04-06] MEDS ORDERED: DEXTROSE (50%) 50ML SYRG IV PRN (11:30)
[2018-04-06] MEDS ORDERED: NITROGLYCERIN 0.4 MG SL TAB SL PRN (11:30)
[2018-04-06 11:50] VITALS: BP 122/71
[2018-04-06 15:40] VITALS: BP 128/77
[2018-04-06] MEDS ORDERED: WARFARIN SODIUM 1 MG TAB PO ONE (17:00)
[2018-04-06 19:50] VITALS: BP 130/82
[2018-04-06 22:00] VITALS: BP 124/79
[2018-04-06] MEDS: MORPHINE SULFATE 8mg/ml INJ SDV IV PRN (22:44)
[2018-04-07 05:00] VITALS: BP 161/100
[2018-04-07] MEDS: PIPERACILLIN-TAZOB 3.375GM 100 ML IV SCH ×2 (05:32→14:34)
[2018-04-07] MEDS: ACCU-CHEK COMFORT CURVE STRIP VI SCH ×4 (05:33→18:00)
[2018-04-07] MEDS: InsuLIN REG 1unit/0.01ml Soln (100units/ml) SC SCH ×4 (05:33→18:00)
[2018-04-07] MEDS: FREE WATER GT SCH ×4 (05:33→17:34)
[2018-04-07] MEDS: ALBUTEROL SULF 2.5 MG/0.5ML(0.5%) NEB SOLN NEB SCH ×5 (05:52→22:55)
[2018-04-07] MEDS: IPRATROPIUM BROM 0.5 MG/2.5ML INH SOL NEB SCH ×5 (05:53→22:55)
[2018-04-07 07:26] LABS: INR 1.89 (0.9-1.15); Prothrombin Time 20.7 sec (9.37-12.3)
[2018-04-07 09:00] VITALS: BP 152/77
[2018-04-07] MEDS: PRO-STAT 64 30ML GT SCH ×2 (10:00→22:00)
[2018-04-07] MEDS: POTASSIUM CHL 10% (20 MEQ/15ML) 15ml ORAL SOLN GT SCH (10:20)
[2018-04-07] MEDS: FLUCONAZOLE 200MG/100ML 100 ML IV SCH (10:21)
[2018-04-07] MEDS: PANTOPRAZOLE 40 MG/10 ML VIAL IV SCH (10:22)
[2018-04-07] MEDS: CITALOPRAM HYDROBR 20 MG TAB PO SCH (10:22)
[2018-04-07] MEDS: POLYETHYLENE GLYCOL 17 GM PWDR PO SCH (10:23)
[2018-04-07] MEDS: OLANZapine 5 MG TAB PO SCH (10:24)
[2018-04-07] MEDS: AZILECT 1 MG PO SCH (10:40)
[2018-04-07 13:00] VITALS: BP 144/82
[2018-04-07 16:46] VITALS: BP 148/81
[2018-04-07] MEDS ORDERED: WARFARIN SODIUM 5 MG TAB PO ONE (17:00)
[2018-04-07 20:03] LABS: Calcium 8.1 mg/dL (8.5-10.1); Potassium 4.6 mmol/L (3.5-5.1)
[2018-04-07] MEDS ORDERED: IOHEXOL 350 MG/ML 100ML IJ ONE (21:24)
[2018-04-07] MEDS ORDERED: VANCOMYCIN 1GM/250ML 250 ML IV ONE ×2 (22:48→23:00)
[2018-04-07] MEDS ORDERED: methylPREDNISolone SOD SUCC 125 MG/2 ML VL ONE (22:59)
[2018-04-07 23:00] VITALS: BP 146/93
[2018-04-07] MEDS ORDERED: methylPREDNISolone SOD SUCC 125 MG/2 ML VL IV ONE (23:00)
[2018-04-07] MEDS ORDERED: VANCOMYCIN PER PHARMACY 0 MG IV SCH (23:00)
[2018-04-08] VITALS (7 sets, daily range): BP systolic 119–146; BP diastolic 71–93
[2018-04-08] MEDS: PIPERACILLIN-TAZOB 3.375GM 100 ML IV SCH ×4 (00:22→22:16)
[2018-04-08] MEDS: ACCU-CHEK COMFORT CURVE STRIP VI SCH ×5 (00:23→23:22)
[2018-04-08] MEDS: FREE WATER GT SCH ×5 (00:23→23:33)
[2018-04-08] MEDS: IPRATROPIUM BROM 0.5 MG/2.5ML INH SOL NEB SCH ×5 (02:27→18:08)
[2018-04-08] MEDS: ALBUTEROL SULF 2.5 MG/0.5ML(0.5%) NEB SOLN NEB SCH ×6 (02:27→22:20)
[2018-04-08] MEDS: InsuLIN REG 1unit/0.01ml Soln (100units/ml) SC SCH ×5 (05:39→23:23)
[2018-04-08 05:51] LABS: Basophils # (auto) 0 uL; Basophils % (auto) 0.1 % (0.0-2.0); Eosinophils # (auto) 0 uL; Hematocrit 34.2 % (41.0-53.0); Hemoglobin 11.3 g/dL (13.5-17.5); Lymphocytes # (auto) 0.2 uL; Lymphocytes % (auto) 1.6 % (10.0-50.0); Mean Corpuscular Hemoglobin 30.1 pg (28.0-32.0); Mean Corpuscular Hgb Conc. 33.1 g/dL (32.0-36.0); Mean Corpuscular Volume 90.7 fL (80.0-100.0); Monocytes # (auto) 0.1 uL; Monocytes % (auto) 0.6 % (0.0-12.0); Neutrophils # (auto) 11.1 uL; Neutrophils % (auto) 97.7 % (37.0-80.0); Nucleated Red Blood Cells % 0.1 %; Platelet Count (auto) 168 10^3/uL (140-450); Red Blood Cells 3.77 10^6/uL (4.5-5.90); White Blood Cell 11.3 10^3/uL (4.4-10.8)
[2018-04-08 05:54] LABS: Albumin 2.2 g/dL (3.4-5.0); BUN/Creatinine Ratio 24.7; Calcium 8.4 mg/dL (8.5-10.1); Potassium 4.5 mmol/L (3.5-5.1)
[2018-04-08 05:56] LABS: INR 2.31 (0.9-1.15); Prothrombin Time 25.4 sec (9.37-12.3)
[2018-04-08 06:03] LABS: Bilirubin, Total 0.6 mg/dL (0.2-1.0); Total Protein 7.2 g/dL (6.4-8.2)
[2018-04-08] MEDS: PANTOPRAZOLE 40 MG/10 ML VIAL IV SCH (09:19)
[2018-04-08] MEDS: FLUCONAZOLE 200MG/100ML 100 ML IV SCH (09:19)
[2018-04-08] MEDS: CITALOPRAM HYDROBR 20 MG TAB PO SCH (09:19)
[2018-04-08] MEDS: POTASSIUM CHL 10% (20 MEQ/15ML) 15ml ORAL SOLN GT SCH (09:19)
[2018-04-08] MEDS: OLANZapine 5 MG TAB PO SCH (09:37)
[2018-04-08] MEDS: PRO-STAT 64 30ML GT SCH ×2 (11:51→22:16)
[2018-04-08] MEDS: POLYETHYLENE GLYCOL 17 GM PWDR PO SCH (11:51)
[2018-04-08] MEDS: VANCOMYCIN 1GM/250ML 250 ML IV SCH (12:00)
[2018-04-08] MEDS: CARBIDOPA W LEVODOPA 25/100mg TABLET PO SCH ×2 (16:40→20:43)
[2018-04-08] MEDS: AZILECT 1 MG PO SCH (16:40)
[2018-04-08] MEDS ORDERED: WARFARIN SODIUM 5 MG TAB PO ONE (17:00)
[2018-04-09] MEDS: VANCOMYCIN 1GM/250ML 250 ML IV SCH (00:28)
[2018-04-09] MEDS: ALBUTEROL SULF 2.5 MG/0.5ML(0.5%) NEB SOLN NEB SCH ×2 (02:04→07:11)
[2018-04-09 03:53] VITALS: BP 140/86
[2018-04-09 05:43] LABS: Basophils # (auto) 0 uL; Eosinophils # (auto) 0 uL; Hemoglobin 9.9 g/dL (13.5-17.5); Lymphocytes # (auto) 0.5 uL; Lymphocytes % (auto) 5.1 % (10.0-50.0); Mean Corpuscular Hemoglobin 30.1 pg (28.0-32.0); Mean Corpuscular Volume 88.7 fL (80.0-100.0); Monocytes # (auto) 0.7 uL; Monocytes % (auto) 7.5 % (0.0-12.0); Neutrophils # (auto) 7.9 uL; Neutrophils % (auto) 87.4 % (37.0-80.0); Platelet Count (auto) 170 10^3/uL (140-450); Red Blood Cells 3.27 10^6/uL (4.5-5.90); Red Cell Distribution Width 15.9 % (11.8-14.3)
[2018-04-09] MEDS: FREE WATER GT SCH ×2 (05:59→12:25)
[2018-04-09] MEDS: ACCU-CHEK COMFORT CURVE STRIP VI SCH ×2 (06:00→12:25)
[2018-04-09] MEDS: PIPERACILLIN-TAZOB 3.375GM 100 ML IV SCH ×2 (06:00→14:00)
[2018-04-09] MEDS: InsuLIN REG 1unit/0.01ml Soln (100units/ml) SC SCH ×2 (06:01→12:45)
[2018-04-09 06:04] LABS: INR 3.43 (0.9-1.15); Prothrombin Time 37.8 sec (9.37-12.3)
[2018-04-09 06:17] LABS: Albumin 2.3 g/dL (3.4-5.0); BUN/Creatinine Ratio 35.9; Bilirubin, Total 0.5 mg/dL (0.2-1.0); Calcium 8.5 mg/dL (8.5-10.1); Potassium 4.2 mmol/L (3.5-5.1); Total Protein 6.7 g/dL (6.4-8.2)
[2018-04-09] MEDS: IPRATROPIUM BROM 0.5 MG/2.5ML INH SOL NEB SCH (07:11)
[2018-04-09 08:00] VITALS: BP 139/79
[2018-04-09] MEDS ORDERED: ONDANSETRON HCL 4 MG/2 ML VIAL IV PRN (10:30)
[2018-04-09] MEDS ORDERED: MORPHINE SULFATE 8mg/ml INJ SDV IV PRN (10:30)
[2018-04-09 12:00] VITALS: BP 133/81
[2018-04-09] MEDS: AZILECT 1 MG PO SCH (12:24)
[2018-04-09] MEDS: FLUCONAZOLE 200MG/100ML 100 ML IV SCH ×2 (12:24→13:08)
[2018-04-09] MEDS: CITALOPRAM HYDROBR 20 MG TAB PO SCH (12:24)
[2018-04-09] MEDS: PANTOPRAZOLE 40 MG/10 ML VIAL IV SCH (12:24)
[2018-04-09] MEDS: PRO-STAT 64 30ML GT SCH (12:24)
[2018-04-09] MEDS: OLANZapine 5 MG TAB PO SCH (12:25)
[2018-04-09] MEDS: POLYETHYLENE GLYCOL 17 GM PWDR PO SCH (12:25)
[2018-04-09] MEDS: CARBIDOPA W LEVODOPA 25/100mg TABLET PO SCH (13:08)
[2018-04-09] MEDS ORDERED: IPRATROPIUM BROM 0.5 MG/2.5ML INH SOL NEB SCH (14:00)
[2018-04-09] MEDS ORDERED: ALBUTEROL SULF 2.5 MG/0.5ML(0.5%) NEB SOLN NEB SCH (14:00)
[2018-04-09 14:37] VITALS: BP_SYST 121; BP_SYST 133; BP_DIAS 75; BP_DIAS 81
[2018-04-09] MEDS ORDERED: VANCOMYCIN 1GM/250ML 250 ML IV SCH (18:00)
[2018-04-10] MEDS ORDERED: POTASSIUM CHL 10% (20 MEQ/15ML) 15ml ORAL SOLN GT SCH (10:00)
== END 2018-04-09 13:00 | DRG 870 ==
LOC: ER 11:36 → TELE 11:37 → ICU WEST 21:53 → DOU IN ICU 03-12 19:54 → ICU WEST 03-26 20:08 → WEST WING 03-26 21:40 → ICU WEST 03-26 22:09 → DOU IN ICU 04-04 16:30 → TELE-CENTR 04-06 20:18 → DOU IN ICU 04-07 22:21
PROVIDERS: ADMIT Internal Medicine; ATTEND Internal Medicine
PROC: 5A1955Z Respiratory Ventilation, Greater than 96 Consecutive Hours (ICD-10-PCS; 2018-03-10)
PROC: 0BH18EZ Insertion of Endotracheal Airway into Trachea, Via Natural or Artificial Opening Endoscopic (ICD-10-PCS; 2018-03-10)
PROC: 02HV33Z Insertion of Infusion Device into Superior Vena Cava, Percutaneous Approach (ICD-10-PCS; 2018-03-10)
PROC: 5A09357 Assistance with Respiratory Ventilation, Less than 24 Consecutive Hours, Continuous Positive Airway Pressure (ICD-10-PCS; 2018-03-10)
PROC: 30233N1 Transfusion of Nonautologous Red Blood Cells into Peripheral Vein, Percutaneous Approach (ICD-10-PCS; 2018-03-10)
PROC: 5A09357 Assistance with Respiratory Ventilation, Less than 24 Consecutive Hours, Continuous Positive Airway Pressure (ICD-10-PCS; 2018-03-11)
PROC: 5A09357 Assistance with Respiratory Ventilation, Less than 24 Consecutive Hours, Continuous Positive Airway Pressure (ICD-10-PCS; 2018-03-12)
PROC: 0DH68UZ Insertion of Feeding Device into Stomach, Via Natural or Artificial Opening Endoscopic (ICD-10-PCS; principal; 2018-03-23 10:56)
PROC: 5A09357 Assistance with Respiratory Ventilation, Less than 24 Consecutive Hours, Continuous Positive Airway Pressure (ICD-10-PCS; 2018-03-24)
PROC: 5A09357 Assistance with Respiratory Ventilation, Less than 24 Consecutive Hours, Continuous Positive Airway Pressure (ICD-10-PCS; 2018-03-25)
PROC: 5A09357 Assistance with Respiratory Ventilation, Less than 24 Consecutive Hours, Continuous Positive Airway Pressure (ICD-10-PCS; 2018-03-26)
PROC: 5A09357 Assistance with Respiratory Ventilation, Less than 24 Consecutive Hours, Continuous Positive Airway Pressure (ICD-10-PCS; 2018-04-07)
DX: A41.9 Sepsis, unspecified organism (principal); J69.0 Pneumonitis due to inhalation of food and vomit; E43 Unspecified severe protein-calorie malnutrition; N17.0 Acute kidney failure with tubular necrosis; R65.21 Severe sepsis with septic shock; J96.02 Acute respiratory failure with hypercapnia; J96.01 Acute respiratory failure with hypoxia; G93.1 Anoxic brain damage, not elsewhere classified; G93.41 Metabolic encephalopathy; I50.41 Acute combined systolic (congestive) and diastolic (congestive) heart failure; D61.818 Other pancytopenia; D69.6 Thrombocytopenia, unspecified; G20 Parkinson's disease; F31.9 Bipolar disorder, unspecified; E87.6 Hypokalemia; D50.9 Iron deficiency anemia, unspecified; F20.9 Schizophrenia, unspecified; Z96.652 Presence of left artificial knee joint; K59.00 Constipation, unspecified; I67.2 Cerebral atherosclerosis; T36.8X5A Adverse effect of other systemic antibiotics, initial encounter; Z79.01 Long term (current) use of anticoagulants; Z85.46 Personal history of malignant neoplasm of prostate; Z86.718 Personal history of other venous thrombosis and embolism; Z79.899 Other long term (current) drug therapy; Z68.24 Body mass index [BMI] 24.0-24.9, adult; Z79.4 Long term (current) use of insulin
CPT/HCPCS: 31720; 36415; 36600; 70450; 71045; 71275; 76775; 80048; 80053; 80061; 80202; 81001; 82306; 82570; 82805; 82962; 83036; 83540; 83550; 83605; 83735; 83880; 84100; 84154; 84156; 84300; 84443; 84484; 84550; 85007; 85014; 85018; 85025; 85027; 85379; 85610; 85652; 85730; 86141; 86160; 86644; 86645; 86664; 86850; 86900; 86901; 86920; 87040; 87070; 87081; 87086; 87205; 87804; 92610; 93005; 93306; 93971; 94002; 94003; 94640; 94660; 94667; 94668; 96361; 96365; 96366; 96368; 97110; 97163; 97530; C9113; G9035; J0330; J1442; J1450; J1815; J1956; J2001; J2250; J2270; J2543; J3430; J3480; J3490; J7060; P9047

== ENCOUNTER 2018-04-10 13:27 | Inpatient (IN) | payer MEDICARE, OTHER ==
[~2018-04-10] VITALS: Ht 172.7 cm; Wt 63.3 kg
[~2018-04-10 13:27] MED LIST changes: +LORA2TAB89 PO; -OLAN2.5T25 PO; +OLAN20TA13 PO
[2018-04-10] MEDS ORDERED: SODIUM CHLORIDE 0.9% 500 ML IV ONE (14:00)
[2018-04-10 14:48] LABS: Basophils # (auto) 0.1 uL; Basophils % (auto) 0.4 % (0.0-2.0); Eosinophils # (auto) 0.1 uL; Hematocrit 28.4 % (41.0-53.0); Hemoglobin 9.4 g/dL (13.5-17.5); Lymphocytes # (auto) 0.7 uL; Lymphocytes % (auto) 5.1 % (10.0-50.0); Mean Corpuscular Hemoglobin 29.5 pg (28.0-32.0); Mean Corpuscular Volume 89.5 fL (80.0-100.0); Monocytes # (auto) 0.8 uL; Monocytes % (auto) 5.8 % (0.0-12.0); Neutrophils # (auto) 11.5 uL; Neutrophils % (auto) 87.7 % (37.0-80.0); Platelet Count (auto) 160 10^3/uL (140-450); Red Blood Cells 3.17 10^6/uL (4.5-5.90); White Blood Cell 13.1 10^3/uL (4.4-10.8)
[2018-04-10 15:03] LABS: Chloride 104 mmol/L (98-107); Sodium 140 mmol/L (136-145)
[2018-04-10 15:09] LABS: Alanine Aminotransferase 7 U/L (16-61); Albumin 2.2 g/dL (3.4-5.0); Anion Gap 8 (5-15); Aspartate Aminotransferase 16 U/L (15-37); Bilirubin, Total 0.6 mg/dL (0.2-1.0); Blood Urea Nitrogen 37 mg/dL (7-18); Carbon Dioxide 28 mmol/L (21-32); GFR African American 113 mL/min; GFR Non-African American 93 mL/min; Glucose 145 mg/dL (74-106); Magnesium 2.1 mg/dL (1.6-2.6); Total Protein 6.3 g/dL (6.4-8.2)
[2018-04-10 15:14] LABS: Alkaline Phosphatase 73 U/L (45-117)
[2018-04-10] MEDS ORDERED: PIPERACILLIN-TAZOB 3.375GM 100 ML IV ONE (16:15)
[2018-04-10] MEDS ORDERED: NITROGLYCERIN 0.4 MG SL TAB SL PRN (16:15)
[2018-04-10] MEDS ORDERED: LORazepam 0.5 MG TAB PO PRN ×3 (16:15→16:30)
[2018-04-10] MEDS ORDERED: LORAZEPAM 2 MG PO PRN (16:15)
[2018-04-10] MEDS ORDERED: ALBUTEROL SULF 2.5 MG/0.5ML(0.5%) NEB SOLN NEB PRN (16:15)
[2018-04-10] MEDS ORDERED: PROMETHAZINE HCL 25 MG/ML 1ML IV PRN (16:15)
[2018-04-10] MEDS ORDERED: ACETAMINOPHEN 500 MG TAB PO PRN (16:15)
[2018-04-10] MEDS ORDERED: MORPHINE SULFATE 4 MG/ML SYR/VIAL IV PRN ×2 (16:15)
[2018-04-10] MEDS ORDERED: VANCOMYCIN 1GM/250ML 250 ML IV ONE (16:15)
[2018-04-10] MEDS ORDERED: TRIHEXYPHENIDYL 5 MG PO SCH (16:15)
[2018-04-10] MEDS ORDERED: HYDROcodone-ACET 5/325MG TAB PO PRN (16:15)
[2018-04-10] MEDS ORDERED: TEMAZEPAM 15 MG CAP PO PRN (16:15)
[2018-04-10] MEDS ORDERED: VANCOMYCIN PER PHARMACY 0 MG IV SCH (16:15)
[2018-04-10] MEDS ORDERED: ENOXAPARIN SOD 40 MG/0.4 ML SYRINGE SC SCH (16:45)
[2018-04-10] MEDS: SODIUM CHLORIDE 0.9% 1,000 ML IV SCH (16:48)
[2018-04-10] MEDS ORDERED: AZITHROMYCIN 500MG/ 250ML 250 ML IV SCH (17:15)
[2018-04-10] MEDS ORDERED: PATIENTS OWN MEDICATION (Carbidopa-Levodopa (Carbidopa/Levodopa Odt 25-100 mg) 1 TAB) PO SCH (18:00)
[2018-04-10] MEDS: CARBIDOPA W LEVODOPA 25/100mg TABLET PO SCH ×2 (18:00→18:14)
[2018-04-10 18:20] LABS: INR 3.39 (0.9-1.15); Partial Thromboplastin Time 43.3 sec (22.64-33.71); Prothrombin Time 37.4 sec (9.37-12.3)
[2018-04-10] MEDS ORDERED: VANCOMYCIN 1GM/250ML 250 ML IV SCH (19:00)
[2018-04-10] MEDS: IPRATROPIUM BROM 0.5 MG/2.5ML INH SOL NEB SCH ×2 (19:10→23:56)
[2018-04-10] MEDS: ALBUTEROL SULF 2.5 MG/0.5ML(0.5%) NEB SOLN NEB SCH ×2 (19:10→23:56)
[2018-04-10 22:19] VITALS: BP 131/78
[2018-04-10] MEDS: PRAMIPEXOLE DIHYDROCHLORIDE MO 0.25 MG TAB PO SCH (22:57)
[2018-04-10 22:59] VITALS: BP 154/54
[2018-04-11] MEDS: CARBIDOPA W LEVODOPA 25/100mg TABLET PO SCH ×6 (00:21→18:09)
[2018-04-11] MEDS: PIPERACILLIN-TAZOB 3.375GM 100 ML IV SCH ×4 (00:28→18:09)
[2018-04-11] MEDS: SODIUM CHLORIDE 0.9% 1,000 ML IV SCH (05:42)
[2018-04-11 05:55] VITALS: BP 140/78
[2018-04-11 06:26] LABS: INR 3.41 (0.9-1.15); Partial Thromboplastin Time 45.5 sec (22.64-33.71); Prothrombin Time 37.6 sec (9.37-12.3)
[2018-04-11] MEDS: ALBUTEROL SULF 2.5 MG/0.5ML(0.5%) NEB SOLN NEB SCH ×3 (06:52→18:46)
[2018-04-11] MEDS: IPRATROPIUM BROM 0.5 MG/2.5ML INH SOL NEB SCH ×3 (06:52→18:46)
[2018-04-11] MEDS ORDERED: TRIHEXYPHENIDYL 5 MG PO SCH ×2 (07:00→10:00)
[2018-04-11 09:00] VITALS: BP 133/78
[2018-04-11] MEDS ORDERED: CITALOPRAM HYDROBROMIDE 10 MG PO SCH (10:00)
[2018-04-11] MEDS: PRAMIPEXOLE DIHYDROCHLORIDE MO 0.25 MG TAB PO SCH ×2 (10:00→21:53)
[2018-04-11] MEDS: CITALOPRAM HYDROBR 20 MG TAB PO SCH (10:39)
[2018-04-11] MEDS ORDERED: VANCOMYCIN 1GM/250ML 250 ML IV SCH (11:00)
[2018-04-11] MEDS ORDERED: FUROSEMIDE 40 MG/4 ML VIAL IV ONE (12:00)
[2018-04-11] MEDS ORDERED: Fibersource Hn 1 Liter GT SCH (12:00)
[2018-04-11] MEDS ORDERED: OLANZAPINE 7.5 MG PO SCH (12:00)
[2018-04-11] MEDS ORDERED: POTASSIUM CHL 10% (20 MEQ/15ML) 15ml ORAL SOLN GT ONE (12:00)
[2018-04-11] MEDS ORDERED: CARBIDOPA W LEVODOPA 25/100mg TABLET PO ONE (12:30)
[2018-04-11] MEDS: RASAGILINE MESYLATE 1 MG PO SCH (12:56)
[2018-04-11] MEDS: OLANZapine 5 MG TAB PO SCH (12:57)
[2018-04-11 13:00] VITALS: BP 141/82
[2018-04-11] MEDS ORDERED: AZITHROMYCIN 500MG/ 250ML 250 ML IV SCH (15:00)
[2018-04-11 17:00] VITALS: BP 117/70
[2018-04-11 22:00] VITALS: BP 110/69
[2018-04-12] MEDS: PIPERACILLIN-TAZOB 3.375GM 100 ML IV SCH ×5 (00:10→23:55)
[2018-04-12] MEDS: IPRATROPIUM BROM 0.5 MG/2.5ML INH SOL NEB SCH ×4 (00:24→18:33)
[2018-04-12] MEDS: ALBUTEROL SULF 2.5 MG/0.5ML(0.5%) NEB SOLN NEB SCH ×4 (00:24→18:34)
[2018-04-12] MEDS: CARBIDOPA W LEVODOPA 25/100mg TABLET PO SCH ×8 (03:00→23:56)
[2018-04-12 05:00] VITALS: BP 119/72
[2018-04-12 07:23] LABS: BUN/Creatinine Ratio 28.4; Calcium 8.4 mg/dL (8.5-10.1); INR 3.08 (0.9-1.15); Potassium 3.8 mmol/L (3.5-5.1)
[2018-04-12 07:31] LABS: Basophils # (auto) 0 uL; Basophils % (auto) 0.3 % (0.0-2.0); Eosinophils # (auto) 0.2 uL; Eosinophils % (auto) 2.2 % (0.0-7.0); Hematocrit 29.1 % (41.0-53.0); Hemoglobin 10.1 g/dL (13.5-17.5); Lymphocytes # (auto) 0.5 uL; Lymphocytes % (auto) 6.7 % (10.0-50.0); Mean Corpuscular Hemoglobin 30.7 pg (28.0-32.0); Mean Corpuscular Hgb Conc. 34.6 g/dL (32.0-36.0); Mean Corpuscular Volume 88.7 fL (80.0-100.0); Monocytes # (auto) 0.5 uL; Monocytes % (auto) 6.4 % (0.0-12.0); Neutrophils # (auto) 6.7 uL; Neutrophils % (auto) 84.4 % (37.0-80.0); Platelet Count (auto) 133 10^3/uL (140-450); Red Blood Cells 3.28 10^6/uL (4.5-5.90); Red Cell Distribution Width 16.2 % (11.8-14.3)
[2018-04-12 09:25] VITALS: BP 127/73
[2018-04-12] MEDS: RASAGILINE MESYLATE 1 MG PO SCH (09:44)
[2018-04-12] MEDS: CITALOPRAM HYDROBR 20 MG TAB PO SCH (09:44)
[2018-04-12] MEDS: PRAMIPEXOLE DIHYDROCHLORIDE MO 0.25 MG TAB PO SCH ×2 (09:58→21:59)
[2018-04-12] MEDS: OLANZapine 5 MG TAB PO SCH (12:40)
[2018-04-12 13:00] VITALS: BP 118/70
[2018-04-12 17:37] VITALS: BP 122/56
[2018-04-12 20:00] VITALS: BP 109/66
[2018-04-12 22:00] VITALS: BP 109/66
[2018-04-13] VITALS (7 sets, daily range): BP systolic 96–124; BP diastolic 59–77
[2018-04-13] MEDS: IPRATROPIUM BROM 0.5 MG/2.5ML INH SOL NEB SCH ×4 (00:26→17:27)
[2018-04-13] MEDS: ALBUTEROL SULF 2.5 MG/0.5ML(0.5%) NEB SOLN NEB SCH ×4 (00:26→17:27)
[2018-04-13] MEDS: CARBIDOPA W LEVODOPA 25/100mg TABLET PO SCH ×6 (02:58→17:38)
[2018-04-13] MEDS: PIPERACILLIN-TAZOB 3.375GM 100 ML IV SCH ×4 (06:07→23:30)
[2018-04-13 08:48] LABS: INR 2.26 (0.9-1.15); Partial Thromboplastin Time 40.5 sec (22.64-33.71); Prothrombin Time 24.8 sec (9.37-12.3)
[2018-04-13] MEDS: PRAMIPEXOLE DIHYDROCHLORIDE MO 0.25 MG TAB PO SCH (09:38)
[2018-04-13] MEDS: RASAGILINE MESYLATE 1 MG PO SCH (09:40)
[2018-04-13] MEDS: CITALOPRAM HYDROBR 20 MG TAB PO SCH (09:40)
[2018-04-13] MEDS: OLANZapine 5 MG TAB PO SCH (12:15)
[2018-04-13] MEDS ORDERED: WARFARIN SODIUM 2.5 MG TAB PO ONE (17:00)
[2018-04-14] MEDS: CARBIDOPA W LEVODOPA 25/100mg TABLET PO SCH ×7 (03:00→17:37)
[2018-04-14 05:20] VITALS: BP 116/71
[2018-04-14] MEDS: PIPERACILLIN-TAZOB 3.375GM 100 ML IV SCH ×3 (06:35→17:37)
[2018-04-14] MEDS: IPRATROPIUM BROM 0.5 MG/2.5ML INH SOL NEB SCH ×3 (07:00→18:00)
[2018-04-14] MEDS: ALBUTEROL SULF 2.5 MG/0.5ML(0.5%) NEB SOLN NEB SCH ×4 (07:00→18:00)
[2018-04-14 08:00] VITALS: BP 102/59
[2018-04-14] MEDS: CITALOPRAM HYDROBR 20 MG TAB PO SCH (09:52)
[2018-04-14] MEDS: RASAGILINE MESYLATE 1 MG PO SCH (09:52)
[2018-04-14 10:08] LABS: INR 1.77 (0.9-1.15); Partial Thromboplastin Time 35.3 sec (22.64-33.71); Prothrombin Time 19.4 sec (9.37-12.3)
[2018-04-14] MEDS ORDERED: FUROSEMIDE 40 MG TAB PO ONE (10:15)
[2018-04-14] MEDS ORDERED: POTASSIUM CHL 10% (20 MEQ/15ML) 15ml ORAL SOLN GT ONE (10:15)
[2018-04-14] MEDS: OLANZapine 5 MG TAB PO SCH (12:19)
[2018-04-14 12:53] VITALS: BP 117/72
[2018-04-14 16:41] VITALS: BP 133/73
[2018-04-14] MEDS ORDERED: WARFARIN SODIUM 5 MG TAB PO ONE (17:00)
[2018-04-14 20:00] VITALS: BP 102/67
[2018-04-14 22:01] VITALS: BP 102/67
[2018-04-15] MEDS: PIPERACILLIN-TAZOB 3.375GM 100 ML IV SCH ×4 (00:10→17:55)
[2018-04-15] MEDS: CARBIDOPA W LEVODOPA 25/100mg TABLET PO SCH ×7 (03:00→17:55)
[2018-04-15 05:49] VITALS: BP 99/65
[2018-04-15] MEDS: IPRATROPIUM BROM 0.5 MG/2.5ML INH SOL NEB SCH ×4 (05:58→19:25)
[2018-04-15] MEDS: ALBUTEROL SULF 2.5 MG/0.5ML(0.5%) NEB SOLN NEB SCH ×4 (05:58→19:25)
[2018-04-15 07:17] LABS: INR 1.9 (0.9-1.15); Partial Thromboplastin Time 36.1 sec (22.64-33.71); Prothrombin Time 20.9 sec (9.37-12.3)
[2018-04-15 08:00] VITALS: BP 94/55
[2018-04-15 08:30] VITALS: BP 94/55
[2018-04-15] MEDS: CITALOPRAM HYDROBR 20 MG TAB PO SCH (09:46)
[2018-04-15] MEDS: RASAGILINE MESYLATE 1 MG PO SCH (09:47)
[2018-04-15] MEDS ORDERED: POTASSIUM CHL 10% (20 MEQ/15ML) 15ml ORAL SOLN GT SCH (10:00)
[2018-04-15] MEDS ORDERED: FUROSEMIDE 40 MG TAB PO SCH (10:00)
[2018-04-15] MEDS: OLANZapine 5 MG TAB PO SCH (11:43)
[2018-04-15 13:00] VITALS: BP_SYST 108; BP_SYST 116; BP_DIAS 66; BP_DIAS 73
[2018-04-15] MEDS ORDERED: WARFARIN SODIUM 2 MG TAB PO ONE (17:00)
[2018-04-15 17:21] VITALS: BP 98/65
[2018-04-15 20:00] VITALS: BP 106/65
== END 2018-04-15 19:30 | DRG 871 ==
LOC: ER 13:27 → EDBD 13:27 → ER 17:55 → TELE-CENTR 18:44
PROVIDERS: ADMIT Internal Medicine; ATTEND Internal Medicine
DX: A41.9 Sepsis, unspecified organism (principal); J69.0 Pneumonitis due to inhalation of food and vomit; J96.20 Acute and chronic respiratory failure, unspecified whether with hypoxia or hypercapnia; I50.43 Acute on chronic combined systolic (congestive) and diastolic (congestive) heart failure; E44.0 Moderate protein-calorie malnutrition; F31.9 Bipolar disorder, unspecified; G20 Parkinson's disease; Z85.46 Personal history of malignant neoplasm of prostate; Z86.718 Personal history of other venous thrombosis and embolism; Z93.1 Gastrostomy status; Z79.899 Other long term (current) drug therapy; Z79.01 Long term (current) use of anticoagulants; Z88.8 Allergy status to other drugs, medicaments and biological substances; Z88.5 Allergy status to narcotic agent; Z68.21 Body mass index [BMI] 21.0-21.9, adult
CPT/HCPCS: 31720; 36415; 36600; 71045; 80048; 80053; 82805; 83605; 83735; 83880; 84484; 85025; 85610; 85730; 87040; 87081; 87493; 93005; 94640; 96361; 96365; 96367; 97110; 97116; 97530; J2543

== ENCOUNTER 2018-04-28 19:51 | Inpatient (IN) | payer MEDICARE, OTHER ==
[~2018-04-28] VITALS: Ht 177.8 cm; Wt 58.1 kg
[2018-04-28] MEDS ORDERED: LEVOFLOXACIN 750MG 150 ML IV ONE ×2 (21:05→21:15)
[2018-04-28 21:20] LABS: Basophils # (auto) 0 uL; Basophils % (auto) 0.2 % (0.0-2.0); Eosinophils # (auto) 0.1 uL; Eosinophils % (auto) 1.7 % (0.0-7.0); Hematocrit 29.3 % (41.0-53.0); Lymphocytes # (auto) 1.1 uL; Mean Corpuscular Hemoglobin 30.9 pg (28.0-32.0); Mean Corpuscular Hgb Conc. 34.1 g/dL (32.0-36.0); Mean Corpuscular Volume 90.5 fL (80.0-100.0); Monocytes # (auto) 0.6 uL; Neutrophils # (auto) 4.4 uL; Neutrophils % (auto) 71.1 % (37.0-80.0); Nucleated Red Blood Cells % 0.1 %; Platelet Count (auto) 237 10^3/uL (140-450); Red Blood Cells 3.24 10^6/uL (4.5-5.90); Red Cell Distribution Width 16.7 % (11.8-14.3); White Blood Cell 6.2 10^3/uL (4.4-10.8)
[2018-04-28] MEDS ORDERED: IPRATROPIUM BROM 0.5 MG/2.5ML INH SOL NEB ONE (21:30)
[2018-04-28] MEDS ORDERED: ALBUTEROL SULF 2.5 MG/0.5ML(0.5%) NEB SOLN NEB ONE (21:30)
[2018-04-28 21:32] LABS: INR 1.07 (0.9-1.15); Partial Thromboplastin Time 24.7 sec (23.78-33.04); Prothrombin Time 11.4 sec (9.27-12.13)
[2018-04-28 21:42] LABS: Alanine Aminotransferase 16 U/L (16-61); Albumin 2.5 g/dL (3.4-5.0); Alkaline Phosphatase 103 U/L (45-117); Anion Gap 4 (5-15); Aspartate Aminotransferase 29 U/L (15-37); BUN/Creatinine Ratio 46.8; Bilirubin, Total 0.3 mg/dL (0.2-1.0); Blood Urea Nitrogen 37 mg/dL (7-18); Calcium 8.3 mg/dL (8.5-10.1); Carbon Dioxide 35 mmol/L (21-32); Chloride 102 mmol/L (98-107); GFR African American 125 mL/min; GFR Non-African American 103 mL/min; Glucose 100 mg/dL (74-106); Magnesium 2.5 mg/dL (1.6-2.6); Potassium 4.4 mmol/L (3.5-5.1); Sodium 141 mmol/L (136-145); Total Protein 7.1 g/dL (6.4-8.2)
[2018-04-28 22:14] LABS: Urine Bacteria NONE SEEN /hpf (None Seen); Urine Blood Negative /uL (Negative); Urine Specific Gravity 1.015 (1.001-1.035); Urine WBC 6 /hpf (0 - 3)
[2018-04-28 22:26] LABS: Alcohol, Urine < 3.0 mg/dL (0-5); Amphetamine Screen, Urine NEGATIVE (NEGATIVE); Barbiturate Scree,Urine NEGATIVE (NEGATIVE); Benzodiazephine Screen, Urine NEGATIVE (NEGATIVE); Cannabinoid Screen, Urine NEGATIVE (NEGATIVE); Cocaine Screen, Urine NEGATIVE (NEGATIVE); Opiate Scree,Urine NEGATIVE (NEGATIVE); Phencyclidine Screen, Urine NEGATIVE (NEGATIVE)
[2018-04-29] MEDS ORDERED: ACETAMINOPHEN 500 MG TAB PO PRN (03:45)
[2018-04-29] MEDS ORDERED: HYDROcodone-ACET 5/325MG TAB PO PRN (03:45)
[2018-04-29] MEDS ORDERED: ONDANSETRON HCL 4 MG/2 ML VIAL IV PRN (03:45)
[2018-04-29 04:35] VITALS: BP 106/74
[2018-04-29 08:02] LABS: INR 1.09 (0.9-1.15); Prothrombin Time 11.6 sec (9.27-12.13)
[2018-04-29 08:12] LABS: Albumin 2.6 g/dL (3.4-5.0); BUN/Creatinine Ratio 38.7; Bilirubin, Total 0.4 mg/dL (0.2-1.0); Calcium 9.1 mg/dL (8.5-10.1)
[2018-04-29 09:00] VITALS: BP 106/70
[2018-04-29] MEDS ORDERED: Fibersource Hn 1 Liter GT SCH (10:15)
[2018-04-29] MEDS ORDERED: TEMAZEPAM 15 MG CAP PO PRN (10:15)
[2018-04-29] MEDS ORDERED: OLANZapine 5 MG TAB PO ONE (10:15)
[2018-04-29] MEDS: CITALOPRAM HYDROBR 20 MG TAB PO SCH (10:41)
[2018-04-29] MEDS ORDERED: SODIUM CHLORIDE 0.9% 250 ML IV ONE (11:45)
[2018-04-29] MEDS ORDERED: CARBIDOPA W LEVODOPA 25/100mg TABLET PO SCH (12:00)
[2018-04-29] MEDS: CARBIDOPA W LEVODOPA 25/100mg TABLET PO SCH ×3 (12:59→18:06)
[2018-04-29 13:00] VITALS: BP 94/59
[2018-04-29 16:58] VITALS: BP 85/46
[2018-04-29] MEDS ORDERED: WARFARIN SODIUM 2.5 MG TAB PO ONE (17:00)
[2018-04-29 20:15] VITALS: BP 88/56
[2018-04-29 22:00] VITALS: BP 88/56
[2018-04-30 02:17] VITALS: BP 100/59
[2018-04-30 05:56] VITALS: BP 88/55
[2018-04-30 06:23] LABS: INR 1.07 (0.9-1.15); Partial Thromboplastin Time 26.1 sec (23.78-33.04); Prothrombin Time 11.4 sec (9.27-12.13)
[2018-04-30 06:25] LABS: Basophils # (auto) 0 uL; Basophils % (auto) 0.4 % (0.0-2.0); Eosinophils # (auto) 0.2 uL; Eosinophils % (auto) 3.2 % (0.0-7.0); Hematocrit 26.9 % (41.0-53.0); Hemoglobin 9.3 g/dL (13.5-17.5); Lymphocytes # (auto) 1.2 uL; Lymphocytes % (auto) 22.6 % (10.0-50.0); Mean Corpuscular Hemoglobin 30.8 pg (28.0-32.0); Mean Corpuscular Hgb Conc. 34.4 g/dL (32.0-36.0); Mean Corpuscular Volume 89.5 fL (80.0-100.0); Monocytes # (auto) 0.4 uL; Monocytes % (auto) 8.3 % (0.0-12.0); Neutrophils # (auto) 3.5 uL; Neutrophils % (auto) 65.5 % (37.0-80.0); Platelet Count (auto) 225 10^3/uL (140-450); Red Cell Distribution Width 16.4 % (11.8-14.3); White Blood Cell 5.4 10^3/uL (4.4-10.8)
[2018-04-30 06:37] LABS: Potassium 4.2 mmol/L (3.5-5.1)
[2018-04-30 06:39] LABS: Albumin 2.4 g/dL (3.4-5.0); BUN/Creatinine Ratio 43.5; Calcium 8.9 mg/dL (8.5-10.1)
[2018-04-30 06:55] LABS: Bilirubin, Total 0.4 mg/dL (0.2-1.0); Total Protein 6.7 g/dL (6.4-8.2)
[2018-04-30] MEDS: CARBIDOPA W LEVODOPA 25/100mg TABLET PO SCH ×4 (07:04→16:07)
[2018-04-30] MEDS ORDERED: SODIUM CHLORIDE 0.9% 1,000 ML IV SCH (07:15)
[2018-04-30] MEDS ORDERED: SODIUM CHLORIDE 0.9% 1,000 ML IV ONE (08:15)
[2018-04-30] MEDS ORDERED: SODIUM CHLORIDE 0.9% 250 ML IV ONE (08:15)
[2018-04-30 09:00] VITALS: BP 86/57
[2018-04-30] MEDS ORDERED: OLANZapine 5 MG TAB PO SCH (10:00)
[2018-04-30] MEDS: CITALOPRAM HYDROBR 20 MG TAB PO SCH (10:38)
[2018-04-30 13:00] VITALS: BP 108/69
[2018-04-30] MEDS ORDERED: WARFARIN SODIUM 2.5 MG TAB PO ONE (17:00)
== END 2018-04-30 16:00 | disposition home or self-care (01) | DRG 92 ==
LOC: EDBD 19:51 → ER 19:51 → OVERFLOW 19:52 → CENTRAL 04-29 04:41
PROVIDERS: ADMIT Nurse Practitioner Family; ATTEND Internal Medicine
DX: G92 Toxic encephalopathy (principal); E44.0 Moderate protein-calorie malnutrition; G20 Parkinson's disease; F20.9 Schizophrenia, unspecified; R47.01 Aphasia; Z68.1 Body mass index [BMI] 19.9 or less, adult; D64.9 Anemia, unspecified; E86.0 Dehydration; F31.9 Bipolar disorder, unspecified; Z79.899 Other long term (current) drug therapy; Z86.718 Personal history of other venous thrombosis and embolism; Z87.01 Personal history of pneumonia (recurrent); Z88.5 Allergy status to narcotic agent; Z88.8 Allergy status to other drugs, medicaments and biological substances; Z90.89 Acquired absence of other organs; Z85.89 Personal history of malignant neoplasm of other organs and systems
CPT/HCPCS: 36415; 36600; 70450; 71045; 80053; 80307; 81001; 82805; 83605; 83735; 83880; 84484; 85025; 85379; 85610; 85730; 87040; 87081; 87086; 93005; 94640; 96365; 97110; 97116; 97163; 97530; J1956; J7042

== ENCOUNTER 2018-05-09 08:27 | Inpatient (IN) | payer MEDICARE, OTHER ==
[~2018-05-09] VITALS: Ht 180.3 cm; Wt 80.5 kg
[2018-05-09 09:37] LABS: Basophils # (auto) 0 uL; Basophils % (auto) 0.1 % (0.0-2.0); Eosinophils # (auto) 0 uL; Eosinophils % (auto) 0.1 % (0.0-7.0); Hematocrit 29.3 % (41.0-53.0); Hemoglobin 9.9 g/dL (13.5-17.5); Lymphocytes # (auto) 0.6 uL; Lymphocytes % (auto) 5.4 % (10.0-50.0); Mean Corpuscular Hemoglobin 30.3 pg (28.0-32.0); Mean Corpuscular Hgb Conc. 33.6 g/dL (32.0-36.0); Mean Corpuscular Volume 90.2 fL (80.0-100.0); Monocytes # (auto) 0.8 uL; Monocytes % (auto) 7.7 % (0.0-12.0); Neutrophils # (auto) 9.1 uL; Neutrophils % (auto) 86.7 % (37.0-80.0); Platelet Count (auto) 292 10^3/uL (140-450); Red Blood Cells 3.25 10^6/uL (4.5-5.90); Red Cell Distribution Width 16.8 % (11.8-14.3); White Blood Cell 10.4 10^3/uL (4.4-10.8)
[2018-05-09 09:53] LABS: Alanine Aminotransferase 9 U/L (16-61); Albumin 2.5 g/dL (3.4-5.0); Anion Gap 10 (5-15); Aspartate Aminotransferase 29 U/L (15-37); BUN/Creatinine Ratio 24.5; Blood Urea Nitrogen 23 mg/dL (7-18); Calcium 8.6 mg/dL (8.5-10.1); Carbon Dioxide 28 mmol/L (21-32); Chloride 100 mmol/L (98-107); GFR African American 102 mL/min; GFR Non-African American 84 mL/min; Glucose 152 mg/dL (74-106); Magnesium 2.1 mg/dL (1.6-2.6); Potassium 4.4 mmol/L (3.5-5.1); Sodium 138 mmol/L (136-145)
[2018-05-09 10:00] LABS: Urine Bacteria FEW /hpf (None Seen); Urine Blood 3+ /uL (Negative); Urine Mucus FEW (None Seen); Urine Specific Gravity 1.017 (1.001-1.035); Urine WBC 36 /hpf (0 - 3)
[2018-05-09] MEDS ORDERED: IPRATROPIUM BROM 0.5 MG/2.5ML INH SOL NEB ONE (10:00)
[2018-05-09] MEDS ORDERED: ALBUTEROL SULF 2.5 MG/0.5ML(0.5%) NEB SOLN NEB ONE (10:00)
[2018-05-09 10:01] LABS: Alkaline Phosphatase 92 U/L (45-117); Bilirubin, Total 0.5 mg/dL (0.2-1.0); Total Protein 7.3 g/dL (6.4-8.2)
[2018-05-09] MEDS ORDERED: SODIUM CHLORIDE 0.9% 1,000 ML IV ONE ×2 (10:08)
[2018-05-09] MEDS ORDERED: cefTRIAXone 1GM/10ml IVPUSH 10 ML IV ONE ×2 (10:15→13:15)
[2018-05-09] MEDS ORDERED: AZITHROMYCIN 500MG/ 250ML 250 ML IV ONE (10:15)
[2018-05-09] MEDS ORDERED: POTASSIUM CHL 10% (20 MEQ/15ML) 15ml ORAL SOLN GT ONE (13:15)
[2018-05-09] MEDS ORDERED: NITROGLYCERIN 0.4 MG SL TAB SL PRN (13:15)
[2018-05-09] MEDS ORDERED: FUROSEMIDE 40 MG/4 ML VIAL IV ONE (13:15)
[2018-05-09] MEDS ORDERED: HYDROcodone-ACET 5/325MG TAB PEG PRN (13:15)
[2018-05-09] MEDS ORDERED: VANCOMYCIN PER PHARMACY 0 MG IV SCH (13:15)
[2018-05-09] MEDS ORDERED: DEXTROSE (50%) 50ML SYRG IV PRN (13:15)
[2018-05-09] MEDS ORDERED: MORPHINE SULFATE 8mg/ml INJ SDV IV PRN (13:15)
[2018-05-09] MEDS ORDERED: ONDANSETRON HCL 4 MG/2 ML VIAL IV PRN (13:15)
[2018-05-09 13:45] VITALS: BP 99/64
[2018-05-09] MEDS: SODIUM CHLOR 0.9% PF (SALINE LOCK) 10ML VIAL/SYR IV SCH ×2 (13:58→22:00)
[2018-05-09] MEDS: FREE WATER GT SCH ×3 (14:01→22:00)
[2018-05-09 14:32] LABS: INR 1.35 (0.9-1.15); Prothrombin Time 14.2 sec (9.27-12.13)
[2018-05-09] MEDS: CARBIDOPA W LEVODOPA 25/100mg TABLET PEG SCH ×3 (14:50→20:37)
[2018-05-09] MEDS: VANCOMYCIN 750 MG in D5W 5% 250 ML IV SCH (14:50)
[2018-05-09] MEDS: ACCU-CHEK COMFORT CURVE STRIP VI SCH ×2 (16:40→22:00)
[2018-05-09] MEDS: InsuLIN REG 1unit/0.01ml Soln (100units/ml) SC SCH ×2 (16:41→22:00)
[2018-05-09] MEDS: LORazepam 0.5 MG TAB GT PRN (16:49)
[2018-05-09] MEDS ORDERED: WARFARIN SODIUM 5 MG TAB PO ONE (17:00)
[2018-05-09] MEDS: IPRATROPIUM BROM 0.5 MG/2.5ML INH SOL NEB SCH ×2 (18:00→19:00)
[2018-05-09] MEDS: ALBUTEROL SULF 2.5 MG/0.5ML(0.5%) NEB SOLN NEB SCH ×2 (18:00→19:00)
[2018-05-09] MEDS: diphenhdrAMINE HCL 12.5 MG/5 ML UD GT PRN (18:53)
[2018-05-09] MEDS ORDERED: CITALOPRAM HYDROBR 20 MG TAB PO ONE (20:00)
[2018-05-09] MEDS ORDERED: OLANZapine 5 MG TAB ONE (20:12)
[2018-05-09] MEDS: OLANZapine 5 MG TAB PO SCH (20:21)
[2018-05-10] MEDS: ACETAMINOPHEN 650 mg PER 20 mL UD GT PRN ×2 (00:48→21:09)
[2018-05-10 01:17] VITALS: BP 95/61
[2018-05-10] MEDS: IPRATROPIUM BROM 0.5 MG/2.5ML INH SOL NEB SCH ×4 (01:20→18:47)
[2018-05-10] MEDS: ALBUTEROL SULF 2.5 MG/0.5ML(0.5%) NEB SOLN NEB SCH ×4 (01:20→18:47)
[2018-05-10] MEDS: FREE WATER GT SCH ×6 (01:50→21:10)
[2018-05-10] MEDS: VANCOMYCIN 750 MG in D5W 5% 250 ML IV SCH ×2 (02:02→16:07)
[2018-05-10 04:00] VITALS: BP 87/57
[2018-05-10 05:28] LABS: Basophils # (auto) 0 uL; Eosinophils # (auto) 0 uL; Hemoglobin 8.4 g/dL (13.5-17.5); Monocytes # (auto) 0.6 uL; Neutrophils # (auto) 11.1 uL; White Blood Cell 13.2 10^3/uL (4.4-10.8)
[2018-05-10 05:30] LABS: Basophils % (auto) 0.2 % (0.0-2.0); Eosinophils % (auto) 0.1 % (0.0-7.0); Hematocrit 24.9 % (41.0-53.0); Lymphocytes # (auto) 1.4 uL; Lymphocytes % (auto) 10.8 % (10.0-50.0); Mean Corpuscular Hemoglobin 30.8 pg (28.0-32.0); Mean Corpuscular Hgb Conc. 33.9 g/dL (32.0-36.0); Mean Corpuscular Volume 90.8 fL (80.0-100.0); Monocytes % (auto) 4.9 % (0.0-12.0); Platelet Count (auto) 208 10^3/uL (140-450); Red Blood Cells 2.74 10^6/uL (4.5-5.90); Red Cell Distribution Width 17.2 % (11.8-14.3)
[2018-05-10 05:39] LABS: INR 1.99 (0.9-1.15); Prothrombin Time 20.5 sec (9.27-12.13)
[2018-05-10 05:46] LABS: Albumin 2.2 g/dL (3.4-5.0); BUN/Creatinine Ratio 21.4; Bilirubin, Total 0.4 mg/dL (0.2-1.0); Calcium 8.6 mg/dL (8.5-10.1); Potassium 4.2 mmol/L (3.5-5.1); Total Protein 6.6 g/dL (6.4-8.2)
[2018-05-10] MEDS: SODIUM CHLOR 0.9% PF (SALINE LOCK) 10ML VIAL/SYR IV SCH ×3 (06:17→21:09)
[2018-05-10] MEDS: CARBIDOPA W LEVODOPA 25/100mg TABLET PEG SCH ×7 (06:18→21:08)
[2018-05-10] MEDS: ACCU-CHEK COMFORT CURVE STRIP VI SCH ×4 (06:52→21:21)
[2018-05-10] MEDS: InsuLIN REG 1unit/0.01ml Soln (100units/ml) SC SCH ×4 (06:52→21:22)
[2018-05-10 08:00] VITALS: BP 70/44
[2018-05-10] MEDS: FUROSEMIDE 40 MG/4 ML VIAL IV SCH (09:07)
[2018-05-10] MEDS: SODIUM CHLORIDE 0.9% 1,000 ML IV SCH ×2 (09:10→20:09)
[2018-05-10] MEDS: cefTRIAXone 1GM/10ml IVPUSH 10 ML IV SCH (09:16)
[2018-05-10] MEDS: POTASSIUM CHL 10% (20 MEQ/15ML) 15ml ORAL SOLN GT SCH (10:00)
[2018-05-10] MEDS: ENOXAPARIN SOD 40 MG/0.4 ML SYRINGE SC SCH (10:48)
[2018-05-10] MEDS: OLANZapine 5 MG TAB PO SCH (10:48)
[2018-05-10 12:38] VITALS: BP 88/49
[2018-05-10] MEDS ORDERED: SODIUM CHLORIDE 0.9% 1,000 ML IV SCH ×3 (13:00→21:00)
[2018-05-10] MEDS: ALBUMIN 25% 100 ML IV SCH ×2 (14:39→17:24)
[2018-05-10] MEDS ORDERED: WARFARIN SODIUM 5 MG TAB PO ONE (17:00)
[2018-05-10 17:22] VITALS: BP 106/62
[2018-05-10 20:00] VITALS: BP 108/62
[2018-05-11] VITALS (7 sets, daily range): BP systolic 85–130; BP diastolic 50–78
[2018-05-11] MEDS: IPRATROPIUM BROM 0.5 MG/2.5ML INH SOL NEB SCH ×4 (00:30→19:52)
[2018-05-11] MEDS: ALBUTEROL SULF 2.5 MG/0.5ML(0.5%) NEB SOLN NEB SCH ×4 (00:30→19:52)
[2018-05-11] MEDS: FREE WATER GT SCH ×6 (02:42→21:14)
[2018-05-11] MEDS: VANCOMYCIN 750 MG in D5W 5% 250 ML IV SCH (02:47)
[2018-05-11 05:08] LABS: Basophils # (auto) 0 uL; Basophils % (auto) 0.2 % (0.0-2.0); Eosinophils # (auto) 0.1 uL; Eosinophils % (auto) 1.2 % (0.0-7.0); Hematocrit 20.5 % (41.0-53.0); Hemoglobin 7.1 g/dL (13.5-17.5); Lymphocytes % (auto) 11.3 % (10.0-50.0); Mean Corpuscular Hemoglobin 31.4 pg (28.0-32.0); Mean Corpuscular Hgb Conc. 34.5 g/dL (32.0-36.0); Monocytes # (auto) 0.6 uL; Monocytes % (auto) 6.5 % (0.0-12.0); Neutrophils # (auto) 7.1 uL; Neutrophils % (auto) 80.8 % (37.0-80.0); Platelet Count (auto) 175 10^3/uL (140-450); Red Blood Cells 2.25 10^6/uL (4.5-5.90); Red Cell Distribution Width 16.8 % (11.8-14.3); White Blood Cell 8.8 10^3/uL (4.4-10.8)
[2018-05-11] MEDS: SODIUM CHLORIDE 0.9% 1,000 ML IV SCH ×2 (05:15→16:03)
[2018-05-11 05:22] LABS: INR 2.28 (0.9-1.15); Partial Thromboplastin Time 42.9 sec (23.78-33.04); Prothrombin Time 23.3 sec (9.27-12.13)
[2018-05-11 05:27] LABS: BUN/Creatinine Ratio 24.6; Calcium 8.3 mg/dL (8.5-10.1); Potassium 3.8 mmol/L (3.5-5.1)
[2018-05-11] MEDS: CARBIDOPA W LEVODOPA 25/100mg TABLET PEG SCH ×4 (06:41→16:02)
[2018-05-11] MEDS: InsuLIN REG 1unit/0.01ml Soln (100units/ml) SC SCH ×4 (06:41→21:33)
[2018-05-11] MEDS: ACCU-CHEK COMFORT CURVE STRIP VI SCH ×4 (06:41→21:14)
[2018-05-11] MEDS: SODIUM CHLOR 0.9% PF (SALINE LOCK) 10ML VIAL/SYR IV SCH ×3 (06:41→21:14)
[2018-05-11] MEDS: RASAGILINE 1 MG GT SCH (09:30)
[2018-05-11] MEDS: FUROSEMIDE 40 MG/4 ML VIAL IV SCH (09:31)
[2018-05-11] MEDS: POTASSIUM CHL 10% (20 MEQ/15ML) 15ml ORAL SOLN GT SCH (09:31)
[2018-05-11] MEDS: cefTRIAXone 1GM/10ml IVPUSH 10 ML IV SCH (09:34)
[2018-05-11] MEDS: OLANZapine 5 MG TAB PO SCH (09:35)
[2018-05-11] MEDS: ENOXAPARIN SOD 40 MG/0.4 ML SYRINGE SC SCH (09:35)
[2018-05-11] MEDS: ALBUMIN 25% 50 ML IV SCH ×2 (11:07→17:22)
[2018-05-11] MEDS: PIPERACILLIN-TAZOB 3.375GM 100 ML IV SCH ×3 (12:51→23:44)
[2018-05-11] MEDS ORDERED: LINEZOLID 600MG TABLET PO ONE (13:45)
[2018-05-11] MEDS ORDERED: MORPHINE SULF INJ 2 MG/ML SYRINGE 1ML IV PRN (17:45)
[2018-05-11] MEDS ORDERED: WARFARIN SODIUM 2.5 MG TAB PO ONE (18:00)
[2018-05-11] MEDS ORDERED: CARBIDOPA W LEVODOPA 25/100mg TABLET PO SCH (18:00)
[2018-05-11] MEDS: LINEZOLID 600MG TABLET PO SCH (21:13)
[2018-05-12 00:03] VITALS: BP 133/78
[2018-05-12] MEDS: ALBUTEROL SULF 2.5 MG/0.5ML(0.5%) NEB SOLN NEB SCH ×5 (00:40→23:04)
[2018-05-12] MEDS: IPRATROPIUM BROM 0.5 MG/2.5ML INH SOL NEB SCH ×5 (00:40→23:04)
[2018-05-12] MEDS: SODIUM CHLORIDE 0.9% 1,000 ML IV SCH ×3 (01:15→22:29)
[2018-05-12] MEDS: FREE WATER GT SCH ×6 (02:00→22:29)
[2018-05-12] MEDS: ALBUMIN 25% 50 ML IV SCH (03:19)
[2018-05-12 05:07] LABS: Basophils # (auto) 0 uL; Basophils % (auto) 0.2 % (0.0-2.0); Lymphocytes # (auto) 0.8 uL; Lymphocytes % (auto) 8.4 % (10.0-50.0); Mean Corpuscular Volume 91.4 fL (80.0-100.0); Monocytes # (auto) 0.5 uL
[2018-05-12 05:10] LABS: Eosinophils # (auto) 0 uL; Eosinophils % (auto) 0.5 % (0.0-7.0); Hematocrit 23.9 % (41.0-53.0); Hemoglobin 8.1 g/dL (13.5-17.5); Neutrophils % (auto) 85.9 % (37.0-80.0); Platelet Count (auto) 228 10^3/uL (140-450); Red Blood Cells 2.61 10^6/uL (4.5-5.90); White Blood Cell 9.3 10^3/uL (4.4-10.8)
[2018-05-12 05:21] LABS: INR 1.7 (0.9-1.15); Partial Thromboplastin Time 40.4 sec (23.78-33.04); Prothrombin Time 17.7 sec (9.27-12.13)
[2018-05-12 05:47] LABS: Albumin 3.2 g/dL (3.4-5.0); BUN/Creatinine Ratio 16.2; Bilirubin, Total 0.5 mg/dL (0.2-1.0); Potassium 4.3 mmol/L (3.5-5.1); Total Protein 7.2 g/dL (6.4-8.2)
[2018-05-12] MEDS: PIPERACILLIN-TAZOB 3.375GM 100 ML IV SCH ×4 (05:56→23:50)
[2018-05-12] MEDS: SODIUM CHLOR 0.9% PF (SALINE LOCK) 10ML VIAL/SYR IV SCH ×3 (05:56→22:29)
[2018-05-12] MEDS: ACCU-CHEK COMFORT CURVE STRIP VI SCH ×4 (06:27→22:30)
[2018-05-12] MEDS: InsuLIN REG 1unit/0.01ml Soln (100units/ml) SC SCH ×4 (06:28→22:30)
[2018-05-12] MEDS: Fibersource Hn 1 Liter GT SCH (06:34)
[2018-05-12 08:00] VITALS: BP 121/78
[2018-05-12] MEDS: RASAGILINE 1 MG GT SCH (09:54)
[2018-05-12] MEDS: ENOXAPARIN SOD 40 MG/0.4 ML SYRINGE SC SCH (09:54)
[2018-05-12] MEDS: OLANZapine 5 MG TAB PO SCH (09:55)
[2018-05-12] MEDS: POTASSIUM CHL 10% (20 MEQ/15ML) 15ml ORAL SOLN GT SCH (09:55)
[2018-05-12] MEDS: FUROSEMIDE 40 MG/4 ML VIAL IV SCH (09:55)
[2018-05-12] MEDS: LINEZOLID 600MG TABLET PO SCH ×2 (09:55→22:29)
[2018-05-12 12:00] VITALS: BP 121/75
[2018-05-12 14:22] VITALS: BP 121/75
[2018-05-12] MEDS ORDERED: WARFARIN SODIUM 2.5 MG TAB PO ONE (17:00)
[2018-05-12 17:39] VITALS: BP 132/74
[2018-05-12] MEDS ORDERED: NALBUPHINE HCL 10 MG/1ml INJECTION IV PRN (18:00)
[2018-05-12 21:51] VITALS: BP 111/70
[2018-05-13] MEDS: Fibersource Hn 1 Liter GT SCH ×2 (01:15→10:00)
[2018-05-13] MEDS: FREE WATER GT SCH ×3 (01:33→09:49)
[2018-05-13 04:56] VITALS: BP 117/64
[2018-05-13] MEDS: SODIUM CHLORIDE 0.9% 1,000 ML IV SCH ×2 (05:33→17:52)
[2018-05-13] MEDS: SODIUM CHLOR 0.9% PF (SALINE LOCK) 10ML VIAL/SYR IV SCH ×3 (05:33→21:41)
[2018-05-13 05:42] LABS: Basophils # (auto) 0 uL; Basophils % (auto) 0.2 % (0.0-2.0); Eosinophils # (auto) 0 uL; Eosinophils % (auto) 0.5 % (0.0-7.0); Hemoglobin 8.2 g/dL (13.5-17.5); Mean Corpuscular Hgb Conc. 34.2 g/dL (32.0-36.0); Monocytes # (auto) 0.6 uL
[2018-05-13 05:44] LABS: Hematocrit 24.1 % (41.0-53.0); Lymphocytes # (auto) 0.6 uL; Lymphocytes % (auto) 6.4 % (10.0-50.0); Mean Corpuscular Hemoglobin 30.9 pg (28.0-32.0); Mean Corpuscular Volume 90.4 fL (80.0-100.0); Monocytes % (auto) 6.5 % (0.0-12.0); Neutrophils # (auto) 7.8 uL; Neutrophils % (auto) 86.4 % (37.0-80.0); Platelet Count (auto) 283 10^3/uL (140-450); Red Blood Cells 2.67 10^6/uL (4.5-5.90)
[2018-05-13 05:57] LABS: BUN/Creatinine Ratio 26.1; Calcium 8.6 mg/dL (8.5-10.1); Potassium 3.7 mmol/L (3.5-5.1)
[2018-05-13] MEDS: PIPERACILLIN-TAZOB 3.375GM 100 ML IV SCH ×3 (06:19→17:52)
[2018-05-13] MEDS: InsuLIN REG 1unit/0.01ml Soln (100units/ml) SC SCH ×4 (06:20→21:41)
[2018-05-13] MEDS: ACCU-CHEK COMFORT CURVE STRIP VI SCH ×4 (06:20→21:41)
[2018-05-13] MEDS: CARBIDOPA W LEVODOPA 25/100mg TABLET PO SCH ×6 (06:21→21:42)
[2018-05-13] MEDS: ALBUTEROL SULF 2.5 MG/0.5ML(0.5%) NEB SOLN NEB SCH ×3 (06:54→18:14)
[2018-05-13] MEDS: IPRATROPIUM BROM 0.5 MG/2.5ML INH SOL NEB SCH ×3 (06:54→18:14)
[2018-05-13 08:23] VITALS: BP 126/73
[2018-05-13 08:52] LABS: INR 1.41 (0.9-1.15); Partial Thromboplastin Time 32.4 sec (23.78-33.04); Prothrombin Time 14.8 sec (9.27-12.13)
[2018-05-13] MEDS: POTASSIUM CHL 10% (20 MEQ/15ML) 15ml ORAL SOLN GT SCH (09:26)
[2018-05-13] MEDS: RASAGILINE 1 MG GT SCH (09:26)
[2018-05-13] MEDS: OLANZapine 5 MG TAB PO SCH (09:26)
[2018-05-13] MEDS: FUROSEMIDE 40 MG/4 ML VIAL IV SCH (09:26)
[2018-05-13] MEDS: LINEZOLID 600MG TABLET PO SCH ×2 (09:27→21:41)
[2018-05-13] MEDS: ENOXAPARIN SOD 40 MG/0.4 ML SYRINGE SC SCH (09:27)
[2018-05-13 13:00] VITALS: BP 96/66
[2018-05-13] MEDS ORDERED: ACETAMINOPHEN 650 mg PER 20 mL UD GT PRN (15:00)
[2018-05-13 16:56] VITALS: BP 132/68
[2018-05-13] MEDS ORDERED: WARFARIN SODIUM 5 MG TAB PO ONE (17:00)
[2018-05-13] MEDS: WARFARIN SODIUM 5 MG TAB PO SCH (17:52)
[2018-05-13] MEDS ORDERED: CARBIDOPA W LEVODOPA 25/100mg TABLET PO SCH (18:00)
[2018-05-13] MEDS: diphenhdrAMINE HCL 12.5 MG/5 ML UD GT PRN (21:43)
[2018-05-13 22:37] VITALS: BP 118/52
[2018-05-14] MEDS: PIPERACILLIN-TAZOB 3.375GM 100 ML IV SCH ×4 (00:01→17:43)
[2018-05-14] MEDS: ALBUTEROL SULF 2.5 MG/0.5ML(0.5%) NEB SOLN NEB SCH ×4 (00:08→19:01)
[2018-05-14] MEDS: IPRATROPIUM BROM 0.5 MG/2.5ML INH SOL NEB SCH ×4 (00:08→19:01)
[2018-05-14] MEDS: SODIUM CHLORIDE 0.9% 1,000 ML IV SCH ×3 (03:06→23:13)
[2018-05-14 05:58] VITALS: BP 116/65
[2018-05-14 05:58] LABS: Basophils # (auto) 0 uL; Basophils % (auto) 0.5 % (0.0-2.0); Eosinophils # (auto) 0.1 uL; Eosinophils % (auto) 0.9 % (0.0-7.0); Hematocrit 26.2 % (41.0-53.0); Hemoglobin 8.9 g/dL (13.5-17.5); Lymphocytes # (auto) 0.9 uL; Lymphocytes % (auto) 13.3 % (10.0-50.0); Mean Corpuscular Hgb Conc. 33.9 g/dL (32.0-36.0); Mean Corpuscular Volume 91.5 fL (80.0-100.0); Monocytes # (auto) 0.5 uL; Monocytes % (auto) 7.5 % (0.0-12.0); Neutrophils % (auto) 77.8 % (37.0-80.0); Platelet Count (auto) 309 10^3/uL (140-450); Red Blood Cells 2.86 10^6/uL (4.5-5.90); White Blood Cell 6.5 10^3/uL (4.4-10.8)
[2018-05-14 06:00] LABS: INR 1.33 (0.9-1.15)
[2018-05-14 06:09] LABS: Potassium 3.4 mmol/L (3.5-5.1)
[2018-05-14] MEDS: SODIUM CHLOR 0.9% PF (SALINE LOCK) 10ML VIAL/SYR IV SCH ×3 (06:10→22:09)
[2018-05-14 06:17] LABS: BUN/Creatinine Ratio 27.6; Calcium 8.8 mg/dL (8.5-10.1)
[2018-05-14] MEDS: CARBIDOPA W LEVODOPA 25/100mg TABLET PO SCH ×4 (06:58→16:43)
[2018-05-14] MEDS: ACCU-CHEK COMFORT CURVE STRIP VI SCH ×4 (06:58→22:09)
[2018-05-14] MEDS: InsuLIN REG 1unit/0.01ml Soln (100units/ml) SC SCH ×4 (06:58→22:09)
[2018-05-14 09:06] VITALS: BP 100/58
[2018-05-14] MEDS: Fibersource Hn 1 Liter GT SCH (10:00)
[2018-05-14] MEDS: FUROSEMIDE 40 MG/4 ML VIAL IV SCH (10:00)
[2018-05-14] MEDS: OLANZapine 5 MG TAB PO SCH (10:02)
[2018-05-14] MEDS: LINEZOLID 600MG TABLET PO SCH (10:02)
[2018-05-14] MEDS: RASAGILINE 1 MG GT SCH (10:03)
[2018-05-14] MEDS: ENOXAPARIN SOD 40 MG/0.4 ML SYRINGE SC SCH (10:04)
[2018-05-14] MEDS: POTASSIUM CHL 10% (20 MEQ/15ML) 15ml ORAL SOLN GT SCH (10:04)
[2018-05-14 13:00] VITALS: BP 121/66
[2018-05-14] MEDS: WARFARIN SODIUM 5 MG TAB PO SCH (16:43)
[2018-05-14 17:14] VITALS: BP 121/75
[2018-05-14] MEDS: ENOXAPARIN SOD 80 MG/0.8ML SYRINGE SC SCH (18:14)
[2018-05-14 21:30] VITALS: BP 108/68
[2018-05-14] MEDS ORDERED: OLANZapine 5 MG TAB GT SCH (21:38)
[2018-05-14] MEDS: LINEZOLID 600MG TABLET GT SCH (22:08)
[2018-05-15] MEDS: PIPERACILLIN-TAZOB 3.375GM 100 ML IV SCH ×4 (00:01→18:01)
[2018-05-15] MEDS: IPRATROPIUM BROM 0.5 MG/2.5ML INH SOL NEB SCH ×4 (00:47→18:55)
[2018-05-15] MEDS: ALBUTEROL SULF 2.5 MG/0.5ML(0.5%) NEB SOLN NEB SCH ×4 (00:47→18:55)
[2018-05-15] MEDS: CARBIDOPA W LEVODOPA 25/100mg TABLET GT SCH ×5 (02:16→17:40)
[2018-05-15] MEDS: diphenhdrAMINE HCL 12.5 MG/5 ML UD GT PRN (02:17)
[2018-05-15 05:00] VITALS: BP 109/64
[2018-05-15] MEDS: Fibersource Hn 1 Liter GT SCH ×2 (05:05→20:15)
[2018-05-15] MEDS: InsuLIN REG 1unit/0.01ml Soln (100units/ml) SC SCH ×4 (06:28→21:15)
[2018-05-15] MEDS: SODIUM CHLOR 0.9% PF (SALINE LOCK) 10ML VIAL/SYR IV SCH ×3 (06:28→21:15)
[2018-05-15] MEDS: ACCU-CHEK COMFORT CURVE STRIP VI SCH ×4 (06:29→21:16)
[2018-05-15 06:38] LABS: Basophils # (auto) 0 uL; Eosinophils # (auto) 0.2 uL; Monocytes # (auto) 0.4 uL; White Blood Cell 4.8 10^3/uL (4.4-10.8)
[2018-05-15 06:40] LABS: Basophils % (auto) 0.8 % (0.0-2.0); Eosinophils % (auto) 3.8 % (0.0-7.0); Hematocrit 22.8 % (41.0-53.0); Hemoglobin 7.6 g/dL (13.5-17.5); Lymphocytes # (auto) 0.9 uL; Lymphocytes % (auto) 19.4 % (10.0-50.0); Mean Corpuscular Hemoglobin 31.1 pg (28.0-32.0); Mean Corpuscular Hgb Conc. 33.4 g/dL (32.0-36.0); Mean Corpuscular Volume 93.2 fL (80.0-100.0); Monocytes % (auto) 8.3 % (0.0-12.0); Neutrophils # (auto) 3.3 uL; Neutrophils % (auto) 67.7 % (37.0-80.0); Platelet Count (auto) 253 10^3/uL (140-450); Red Blood Cells 2.45 10^6/uL (4.5-5.90); Red Cell Distribution Width 17.2 % (11.8-14.3)
[2018-05-15 06:54] LABS: INR 1.5 (0.9-1.15); Prothrombin Time 15.7 sec (9.27-12.13)
[2018-05-15 06:55] LABS: BUN/Creatinine Ratio 36.4; Calcium 8.3 mg/dL (8.5-10.1); Potassium 3.6 mmol/L (3.5-5.1)
[2018-05-15 09:00] VITALS: BP 137/70
[2018-05-15 09:40] VITALS: BP 109/64
[2018-05-15] MEDS: LINEZOLID 600MG TABLET GT SCH ×2 (10:15→21:15)
[2018-05-15] MEDS: POTASSIUM CHL 10% (20 MEQ/15ML) 15ml ORAL SOLN GT SCH (10:15)
[2018-05-15] MEDS: ENOXAPARIN SOD 80 MG/0.8ML SYRINGE SC SCH ×2 (10:16→21:15)
[2018-05-15] MEDS: FUROSEMIDE 40 MG/4 ML VIAL IV SCH (10:17)
[2018-05-15] MEDS: AZILECT 1 MG PO SCH (10:18)
[2018-05-15] MEDS: OLANZapine 5 MG TAB GT SCH (10:19)
[2018-05-15 12:30] VITALS: BP 112/78
[2018-05-15] MEDS: SODIUM CHLORIDE 0.9% 1,000 ML IV SCH ×2 (12:38→19:15)
[2018-05-15 17:04] VITALS: BP 112/70
[2018-05-15] MEDS: WARFARIN SODIUM 5 MG TAB GT SCH (17:39)
[2018-05-15 22:07] VITALS: BP 124/73
[2018-05-16] MEDS: PIPERACILLIN-TAZOB 3.375GM 100 ML IV SCH ×5 (00:11→23:54)
[2018-05-16] MEDS: ALBUTEROL SULF 2.5 MG/0.5ML(0.5%) NEB SOLN NEB SCH ×4 (01:11→19:15)
[2018-05-16] MEDS: IPRATROPIUM BROM 0.5 MG/2.5ML INH SOL NEB SCH ×4 (01:11→19:15)
[2018-05-16] MEDS: CARBIDOPA W LEVODOPA 25/100mg TABLET GT SCH ×6 (03:25→22:27)
[2018-05-16] MEDS: SODIUM CHLORIDE 0.9% 1,000 ML IV SCH ×2 (04:30→16:05)
[2018-05-16 05:00] VITALS: BP 124/74
[2018-05-16] MEDS: InsuLIN REG 1unit/0.01ml Soln (100units/ml) SC SCH ×4 (06:09→22:00)
[2018-05-16] MEDS: ACCU-CHEK COMFORT CURVE STRIP VI SCH ×4 (06:53→22:28)
[2018-05-16] MEDS: SODIUM CHLOR 0.9% PF (SALINE LOCK) 10ML VIAL/SYR IV SCH ×3 (06:53→22:27)
[2018-05-16 08:17] LABS: Basophils # (auto) 0 uL; Basophils % (auto) 0.9 % (0.0-2.0); Eosinophils # (auto) 0.2 uL; Eosinophils % (auto) 5.6 % (0.0-7.0); Hematocrit 23.4 % (41.0-53.0); Lymphocytes # (auto) 1.1 uL; Lymphocytes % (auto) 30.7 % (10.0-50.0); Mean Corpuscular Hemoglobin 31.2 pg (28.0-32.0); Mean Corpuscular Hgb Conc. 34.1 g/dL (32.0-36.0); Mean Corpuscular Volume 91.6 fL (80.0-100.0); Monocytes # (auto) 0.4 uL; Monocytes % (auto) 10.8 % (0.0-12.0); Neutrophils # (auto) 1.9 uL; Nucleated Red Blood Cells % 0.1 %; Platelet Count (auto) 303 10^3/uL (140-450); Red Blood Cells 2.55 10^6/uL (4.5-5.90); Red Cell Distribution Width 16.9 % (11.8-14.3); White Blood Cell 3.7 10^3/uL (4.4-10.8)
[2018-05-16 08:21] LABS: BUN/Creatinine Ratio 37.7; Calcium 8.5 mg/dL (8.5-10.1); Potassium 3.9 mmol/L (3.5-5.1)
[2018-05-16 08:36] LABS: INR 1.7 (0.9-1.15); Partial Thromboplastin Time 36.4 sec (23.78-33.04); Prothrombin Time 17.7 sec (9.27-12.13)
[2018-05-16 09:00] VITALS: BP 133/83
[2018-05-16] MEDS: FUROSEMIDE 40 MG/4 ML VIAL IV SCH (10:23)
[2018-05-16] MEDS: ENOXAPARIN SOD 80 MG/0.8ML SYRINGE SC SCH ×2 (10:23→22:27)
[2018-05-16] MEDS: AZILECT 1 MG PO SCH (10:24)
[2018-05-16] MEDS: LINEZOLID 600MG TABLET GT SCH ×2 (10:25→22:27)
[2018-05-16] MEDS: POTASSIUM CHL 10% (20 MEQ/15ML) 15ml ORAL SOLN GT SCH (10:27)
[2018-05-16] MEDS: OLANZapine 5 MG TAB GT SCH (10:27)
[2018-05-16 12:28] VITALS: BP 102/71
[2018-05-16 17:00] VITALS: BP 137/74
[2018-05-16] MEDS: WARFARIN SODIUM 5 MG TAB GT SCH (18:18)
[2018-05-16 21:37] VITALS: BP 128/74
[2018-05-16] MEDS: LORazepam 0.5 MG TAB GT PRN (23:03)
[2018-05-17] MEDS: ALBUTEROL SULF 2.5 MG/0.5ML(0.5%) NEB SOLN NEB SCH ×4 (00:18→18:21)
[2018-05-17] MEDS: IPRATROPIUM BROM 0.5 MG/2.5ML INH SOL NEB SCH ×4 (00:18→18:21)
[2018-05-17] MEDS: SODIUM CHLORIDE 0.9% 1,000 ML IV SCH ×2 (01:48→11:27)
[2018-05-17 04:26] VITALS: BP 110/73
[2018-05-17 06:01] LABS: Basophils # (auto) 0 uL; Eosinophils # (auto) 0.3 uL; Hemoglobin 8.4 g/dL (13.5-17.5); Monocytes # (auto) 0.3 uL; White Blood Cell 4.3 10^3/uL (4.4-10.8)
[2018-05-17 06:03] LABS: Eosinophils % (auto) 6.9 % (0.0-7.0); Hematocrit 24.5 % (41.0-53.0); Lymphocytes # (auto) 1.2 uL; Lymphocytes % (auto) 28.7 % (10.0-50.0); Mean Corpuscular Hemoglobin 31.5 pg (28.0-32.0); Mean Corpuscular Hgb Conc. 34.1 g/dL (32.0-36.0); Mean Corpuscular Volume 92.3 fL (80.0-100.0); Monocytes % (auto) 8.2 % (0.0-12.0); Neutrophils # (auto) 2.4 uL; Neutrophils % (auto) 55.2 % (37.0-80.0); Nucleated Red Blood Cells % 0.1 %; Platelet Count (auto) 292 10^3/uL (140-450); Red Blood Cells 2.66 10^6/uL (4.5-5.90); Red Cell Distribution Width 16.7 % (11.8-14.3)
[2018-05-17] MEDS: ACCU-CHEK COMFORT CURVE STRIP VI SCH ×4 (06:05→21:44)
[2018-05-17] MEDS: SODIUM CHLOR 0.9% PF (SALINE LOCK) 10ML VIAL/SYR IV SCH ×3 (06:05→21:44)
[2018-05-17] MEDS: InsuLIN REG 1unit/0.01ml Soln (100units/ml) SC SCH ×4 (06:05→21:44)
[2018-05-17] MEDS: PIPERACILLIN-TAZOB 3.375GM 100 ML IV SCH ×2 (06:05→12:32)
[2018-05-17] MEDS: CARBIDOPA W LEVODOPA 25/100mg TABLET GT SCH ×4 (06:06→18:50)
[2018-05-17 06:10] LABS: BUN/Creatinine Ratio 32.3; Potassium 3.7 mmol/L (3.5-5.1)
[2018-05-17 07:30] LABS: INR 1.87 (0.9-1.15); Prothrombin Time 19.3 sec (9.27-12.13)
[2018-05-17 08:59] VITALS: BP 98/65
[2018-05-17] MEDS: POTASSIUM CHL 10% (20 MEQ/15ML) 15ml ORAL SOLN GT SCH (11:25)
[2018-05-17] MEDS: LINEZOLID 600MG TABLET GT SCH ×2 (11:25→21:43)
[2018-05-17] MEDS: OLANZapine 5 MG TAB GT SCH (11:25)
[2018-05-17] MEDS: ENOXAPARIN SOD 80 MG/0.8ML SYRINGE SC SCH ×2 (11:26→21:44)
[2018-05-17] MEDS: FUROSEMIDE 40 MG/4 ML VIAL IV SCH (11:26)
[2018-05-17] MEDS: AZILECT 1 MG PO SCH (11:26)
[2018-05-17 12:42] VITALS: BP 103/65
[2018-05-17] MEDS ORDERED: SOD CHL 0.45% 1,000 ML IV ONE (14:45)
[2018-05-17 16:48] VITALS: BP 91/59
[2018-05-17] MEDS: WARFARIN SODIUM 5 MG TAB GT SCH (18:46)
[2018-05-17] MEDS: Fibersource Hn 1 Liter GT SCH (21:44)
[2018-05-17] MEDS: LORazepam 0.5 MG TAB GT PRN (21:45)
[2018-05-17 22:07] VITALS: BP 106/69
[2018-05-18] MEDS: IPRATROPIUM BROM 0.5 MG/2.5ML INH SOL NEB SCH ×5 (00:39→23:17)
[2018-05-18] MEDS: ALBUTEROL SULF 2.5 MG/0.5ML(0.5%) NEB SOLN NEB SCH ×5 (00:39→23:18)
[2018-05-18 05:00] VITALS: BP 107/65
[2018-05-18] MEDS: SODIUM CHLOR 0.9% PF (SALINE LOCK) 10ML VIAL/SYR IV SCH ×3 (05:59→21:29)
[2018-05-18] MEDS: InsuLIN REG 1unit/0.01ml Soln (100units/ml) SC SCH ×4 (06:00→21:57)
[2018-05-18] MEDS: ACCU-CHEK COMFORT CURVE STRIP VI SCH ×4 (06:00→21:30)
[2018-05-18] MEDS: CARBIDOPA W LEVODOPA 25/100mg TABLET GT SCH ×5 (06:03→21:28)
[2018-05-18 06:42] LABS: Hematocrit 24.3 % (41.0-53.0); Hemoglobin 8.2 g/dL (13.5-17.5); Lymphocytes # (auto) 1.2 uL; Mean Corpuscular Hemoglobin 30.9 pg (28.0-32.0); Nucleated Red Blood Cells % 0.1 %; White Blood Cell 3.9 10^3/uL (4.4-10.8)
[2018-05-18 06:49] LABS: Basophils # (auto) 0.1 uL; Basophils % (auto) 1.3 % (0.0-2.0); Eosinophils # (auto) 0.3 uL; Eosinophils % (auto) 6.4 % (0.0-7.0); Lymphocytes % (auto) 30.8 % (10.0-50.0); Mean Corpuscular Hgb Conc. 33.7 g/dL (32.0-36.0); Mean Corpuscular Volume 91.8 fL (80.0-100.0); Monocytes # (auto) 0.4 uL; Monocytes % (auto) 9.2 % (0.0-12.0); Neutrophils % (auto) 52.3 % (37.0-80.0); Platelet Count (auto) 291 10^3/uL (140-450); Red Blood Cells 2.65 10^6/uL (4.5-5.90); Red Cell Distribution Width 17.1 % (11.8-14.3)
[2018-05-18 06:53] LABS: INR 1.95 (0.9-1.15); Prothrombin Time 20.1 sec (9.27-12.13)
[2018-05-18 07:01] LABS: Calcium 8.5 mg/dL (8.5-10.1)
[2018-05-18 08:00] VITALS: BP 95/62
[2018-05-18] MEDS: FUROSEMIDE 40 MG/4 ML VIAL IV SCH (08:42)
[2018-05-18] MEDS: ENOXAPARIN SOD 80 MG/0.8ML SYRINGE SC SCH ×2 (08:42→21:29)
[2018-05-18] MEDS: OLANZapine 5 MG TAB GT SCH (08:50)
[2018-05-18] MEDS: POTASSIUM CHL 10% (20 MEQ/15ML) 15ml ORAL SOLN GT SCH (08:50)
[2018-05-18] MEDS: LINEZOLID 600MG TABLET GT SCH ×2 (08:51→21:29)
[2018-05-18] MEDS: AZILECT 1 MG PO SCH (08:53)
[2018-05-18 12:00] VITALS: BP 86/55
[2018-05-18 13:43] VITALS: BP 86/55
[2018-05-18 15:00] VITALS: BP 103/68
[2018-05-18] MEDS: WARFARIN SODIUM 5 MG TAB GT SCH (17:04)
[2018-05-18 22:10] VITALS: BP 125/65
[2018-05-19] MEDS ORDERED: diphenhdrAMINE HCL 12.5 MG/5 ML UD ONE ×2 (00:51→00:59)
[2018-05-19] MEDS: diphenhdrAMINE HCL 12.5 MG/5 ML UD GT PRN (01:28)
[2018-05-19 05:14] VITALS: BP 120/73
[2018-05-19] MEDS: SODIUM CHLOR 0.9% PF (SALINE LOCK) 10ML VIAL/SYR IV SCH (05:25)
[2018-05-19 06:21] LABS: Basophils # (auto) 0 uL; Basophils % (auto) 0.6 % (0.0-2.0); Eosinophils # (auto) 0.1 uL; Eosinophils % (auto) 2.6 % (0.0-7.0); Hematocrit 25.7 % (41.0-53.0); Hemoglobin 8.8 g/dL (13.5-17.5); Lymphocytes % (auto) 18.6 % (10.0-50.0); Mean Corpuscular Hemoglobin 31.3 pg (28.0-32.0); Mean Corpuscular Hgb Conc. 34.3 g/dL (32.0-36.0); Mean Corpuscular Volume 91.4 fL (80.0-100.0); Monocytes # (auto) 0.3 uL; Monocytes % (auto) 6.4 % (0.0-12.0); Neutrophils # (auto) 3.7 uL; Neutrophils % (auto) 71.8 % (37.0-80.0); Nucleated Red Blood Cells % 0.1 %; Platelet Count (auto) 291 10^3/uL (140-450); Red Blood Cells 2.81 10^6/uL (4.5-5.90); White Blood Cell 5.2 10^3/uL (4.4-10.8)
[2018-05-19 06:28] LABS: INR 2.05 (0.9-1.15); Prothrombin Time 21.1 sec (9.27-12.13)
[2018-05-19 06:37] LABS: Potassium 4.4 mmol/L (3.5-5.1)
[2018-05-19 06:56] LABS: BUN/Creatinine Ratio 35.4; Calcium 8.6 mg/dL (8.5-10.1)
[2018-05-19] MEDS: IPRATROPIUM BROM 0.5 MG/2.5ML INH SOL NEB SCH ×2 (07:00→11:57)
[2018-05-19] MEDS: ALBUTEROL SULF 2.5 MG/0.5ML(0.5%) NEB SOLN NEB SCH ×2 (07:00→11:57)
[2018-05-19] MEDS: InsuLIN REG 1unit/0.01ml Soln (100units/ml) SC SCH ×2 (07:00→11:30)
[2018-05-19] MEDS: ACCU-CHEK COMFORT CURVE STRIP VI SCH ×2 (07:01→11:55)
[2018-05-19 08:18] VITALS: BP 120/72
[2018-05-19] MEDS: POTASSIUM CHL 10% (20 MEQ/15ML) 15ml ORAL SOLN GT SCH (10:12)
[2018-05-19] MEDS: OLANZapine 5 MG TAB GT SCH (10:12)
[2018-05-19] MEDS: AZILECT 1 MG PO SCH (10:13)
[2018-05-19] MEDS: CARBIDOPA W LEVODOPA 25/100mg TABLET GT SCH ×2 (10:13→13:18)
[2018-05-19] MEDS: FUROSEMIDE 40 MG/4 ML VIAL IV SCH (10:13)
[2018-05-19 11:08] VITALS: BP 120/72
[2018-05-19] MEDS ORDERED: ALBUTEROL SULF 2.5 MG/0.5ML(0.5%) NEB SOLN ONE (11:52)
[2018-05-19] MEDS ORDERED: IPRATROPIUM BROM 0.5 MG/2.5ML INH SOL ONE (11:53)
[2018-05-19 12:18] VITALS: BP 96/62
== END 2018-05-19 15:20 | DRG 871 ==
LOC: EDBD 08:27 → ER 08:31 → TELE 08:32 → DOU IN ICU 05-10 00:28 → TELE-EAST 05-12 16:13
PROVIDERS: ADMIT Internal Medicine; ATTEND Internal Medicine
DX: A41.9 Sepsis, unspecified organism (principal); E43 Unspecified severe protein-calorie malnutrition; J69.0 Pneumonitis due to inhalation of food and vomit; J96.00 Acute respiratory failure, unspecified whether with hypoxia or hypercapnia; G93.41 Metabolic encephalopathy; N17.0 Acute kidney failure with tubular necrosis; N39.0 Urinary tract infection, site not specified; E87.0 Hyperosmolality and hypernatremia; G93.1 Anoxic brain damage, not elsewhere classified; I82.411 Acute embolism and thrombosis of right femoral vein; I82.433 Acute embolism and thrombosis of popliteal vein, bilateral; J98.11 Atelectasis; T17.890A Other foreign object in other parts of respiratory tract causing asphyxiation, initial encounter; D64.9 Anemia, unspecified; E11.21 Type 2 diabetes mellitus with diabetic nephropathy; N18.2 Chronic kidney disease, stage 2 (mild); G20 Parkinson's disease; E11.22 Type 2 diabetes mellitus with diabetic chronic kidney disease; E11.65 Type 2 diabetes mellitus with hyperglycemia; F20.9 Schizophrenia, unspecified; T45.515A Adverse effect of anticoagulants, initial encounter; F31.9 Bipolar disorder, unspecified; X58.XXXA Exposure to other specified factors, initial encounter; R47.9 Unspecified speech disturbances; B95.2 Enterococcus as the cause of diseases classified elsewhere; Z16.21 Resistance to vancomycin; I67.2 Cerebral atherosclerosis; R13.10 Dysphagia, unspecified; R31.0 Gross hematuria; R65.20 Severe sepsis without septic shock; Z85.46 Personal history of malignant neoplasm of prostate; Z86.718 Personal history of other venous thrombosis and embolism; Z68.24 Body mass index [BMI] 24.0-24.9, adult; Y93.89 Activity, other specified; Y92.89 Other specified places as the place of occurrence of the external cause; Y99.8 Other external cause status; Z90.89 Acquired absence of other organs; Z86.73 Personal history of transient ischemic attack (TIA), and cerebral infarction without residual deficits; Z88.8 Allergy status to other drugs, medicaments and biological substances; Z79.899 Other long term (current) drug therapy
CPT/HCPCS: 31720; 36415; 51702; 70450; 71045; 80048; 80053; 80202; 81001; 82962; 83036; 83605; 83735; 84484; 85025; 85610; 85730; 87040; 87081; 87086; 87088; 87186; 92610; 93005; 93970; 94640; 96361; 96374; 96375; 97110; 97116; 97163; 97530; 99291; J1815; J2543; J7060; P9047

== ENCOUNTER 2018-07-02 20:01 | Inpatient (IN) | payer MEDICARE, OTHER ==
[~2018-07-02] VITALS: Ht 172.7 cm; Wt 65.8 kg
[~2018-07-02 20:01] MED LIST changes: -LORA-654 PO; -PRA25T PO; -TRIH5TAB2 PO
[2018-07-02 21:04] LABS: Basophils # (auto) 0 uL; Basophils % (auto) 0.2 % (0.0-2.0); Eosinophils # (auto) 0 uL; Eosinophils % (auto) 0.1 % (0.0-7.0); Hematocrit 28.1 % (41.0-53.0); Hemoglobin 9.7 g/dL (13.5-17.5); Lymphocytes # (auto) 0.6 uL; Lymphocytes % (auto) 7.2 % (10.0-50.0); Mean Corpuscular Hgb Conc. 34.5 g/dL (32.0-36.0); Mean Corpuscular Volume 95.6 fL (80.0-100.0); Monocytes # (auto) 0.7 uL; Monocytes % (auto) 8.5 % (0.0-12.0); Neutrophils # (auto) 6.6 uL; Platelet Count (auto) 194 10^3/uL (140-450); Red Blood Cells 2.94 10^6/uL (4.5-5.90); Red Cell Distribution Width 16.1 % (11.8-14.3); White Blood Cell 7.9 10^3/uL (4.4-10.8)
[2018-07-02 21:24] LABS: Urine Bacteria FEW /hpf (None Seen); Urine Blood 1+ /uL (Negative); Urine Hyaline Cast FEW /lpf (0 - 2); Urine Specific Gravity 1.011 (1.001-1.035); Urine WBC 54 /hpf (0 - 3)
[2018-07-02 21:28] LABS: Alanine Aminotransferase 8 U/L (16-61); Albumin 3.4 g/dL (3.4-5.0); Alkaline Phosphatase 69 U/L (45-117); Anion Gap 4 (5-15); Aspartate Aminotransferase 14 U/L (15-37); BUN/Creatinine Ratio 15.7; Bilirubin, Total 0.6 mg/dL (0.2-1.0); Blood Alcohol < 3.0 mg/dL (0-5); Blood Urea Nitrogen 16 mg/dL (7-18); Calcium 8.7 mg/dL (8.5-10.1); Carbon Dioxide 26 mmol/L (21-32); Chloride 110 mmol/L (98-107); GFR African American 93 mL/min; GFR Non-African American 77 mL/min; Glucose 129 mg/dL (74-106); Lactic Acid w/Reflex 2.8 mmol/L (0.4-2.0); Potassium 3.7 mmol/L (3.5-5.1); Sodium 140 mmol/L (136-145)
[2018-07-02 21:32] LABS: INR 1.79 (0.9-1.15); Partial Thromboplastin Time 29.7 sec (23.78-33.04); Prothrombin Time 18.5 sec (9.27-12.13)
[2018-07-02 21:35] LABS: Alcohol, Urine < 3.0 mg/dL (0-5); Amphetamine Screen, Urine NEGATIVE (NEGATIVE); Barbiturate Scree,Urine NEGATIVE (NEGATIVE); Benzodiazephine Screen, Urine NEGATIVE (NEGATIVE); Cannabinoid Screen, Urine NEGATIVE (NEGATIVE); Cocaine Screen, Urine NEGATIVE (NEGATIVE); Opiate Scree,Urine NEGATIVE (NEGATIVE); Phencyclidine Screen, Urine NEGATIVE (NEGATIVE)
[2018-07-02] MEDS ORDERED: SODIUM CHLORIDE 0.9% 1,000 ML IV ONE ×2 (21:45)
[2018-07-02] MEDS ORDERED: PIPERACILLIN-TAZOB 3.375GM 100 ML IV ONE (21:45)
[2018-07-02] MEDS ORDERED: ACETAMINOPHEN 650 mg PER 20 mL UD GT ONE (22:15)
[2018-07-03] VITALS (8 sets, daily range): BP systolic 90–124; BP diastolic 53–77
[2018-07-03] MEDS ORDERED: ACETAMINOPHEN 650 mg PER 20 mL UD GT PRN (00:45)
[2018-07-03] MEDS ORDERED: ONDANSETRON HCL 4 MG/2 ML VIAL IV PRN (00:45)
[2018-07-03] MEDS ORDERED: IPRATROPIUM BROM 0.5 MG/2.5ML INH SOL NEB PRN (00:45)
[2018-07-03] MEDS ORDERED: ALBUTEROL SULF 2.5 MG/0.5ML(0.5%) NEB SOLN NEB PRN (00:45)
[2018-07-03] MEDS ORDERED: diphenhdrAMINE HCL 12.5 MG/5 ML UD PO PRN (01:00)
[2018-07-03] MEDS ORDERED: LACTULOSE 20Gm/30ML SOLN GT PRN (01:00)
[2018-07-03] MEDS ORDERED: FURO40TA PO (05:26)
[2018-07-03] MEDS ORDERED: RASA1TAB PO (05:26)
[2018-07-03] MEDS ORDERED: MOMLQ GT (05:30)
[2018-07-03] MEDS ORDERED: MAGN400S25 PO (05:30)
[2018-07-03] MEDS ORDERED: ONDA4TAB5 PO (05:30)
[2018-07-03] MEDS ORDERED: ACET-1156 PO (05:31)
[2018-07-03] MEDS ORDERED: ALBU0.08 HHN (05:35)
[2018-07-03] MEDS ORDERED: ALB5IS NEB (05:35)
[2018-07-03] MEDS ORDERED: CARBIDOPA W LEVODOPA 25/100mg TABLET PO SCH (06:00)
[2018-07-03 07:00] LABS: Basophils # (auto) 0 uL; Basophils % (auto) 0.4 % (0.0-2.0); Eosinophils # (auto) 0 uL; Eosinophils % (auto) 0.2 % (0.0-7.0); Hematocrit 26.4 % (41.0-53.0); Hemoglobin 9.3 g/dL (13.5-17.5); Lymphocytes # (auto) 1.2 uL; Lymphocytes % (auto) 22.1 % (10.0-50.0); Mean Corpuscular Hemoglobin 33.9 pg (28.0-32.0); Mean Corpuscular Hgb Conc. 35.3 g/dL (32.0-36.0); Mean Corpuscular Volume 95.9 fL (80.0-100.0); Monocytes # (auto) 0.6 uL; Neutrophils # (auto) 3.8 uL; Neutrophils % (auto) 67.3 % (37.0-80.0); Nucleated Red Blood Cells % 0.1 %; Platelet Count (auto) 171 10^3/uL (140-450); Red Blood Cells 2.75 10^6/uL (4.5-5.90); Red Cell Distribution Width 16.1 % (11.8-14.3); White Blood Cell 5.6 10^3/uL (4.4-10.8)
[2018-07-03 07:07] LABS: INR 1.81 (0.9-1.15); Prothrombin Time 18.7 sec (9.27-12.13)
[2018-07-03 07:10] LABS: BUN/Creatinine Ratio 19.8; Calcium 8.4 mg/dL (8.5-10.1); Potassium 3.5 mmol/L (3.5-5.1)
[2018-07-03] MEDS: HYDROcodone-ACET 10/325MG TAB PO PRN ×3 (08:00→15:20)
[2018-07-03] MEDS: HYDROmorphone HCL 2 MG/ML VL IV PRN ×5 (08:43→19:09)
[2018-07-03] MEDS ORDERED: HYDROmorphone HCL 2 MG/ML VL IV PRN (08:45)
[2018-07-03] MEDS: LEVOFLOXACIN 500MG 100 ML IV SCH (10:00)
[2018-07-03] MEDS: CITALOPRAM HYDROBR 20 MG TAB PO SCH (11:34)
[2018-07-03] MEDS: FUROSEMIDE 40 MG TAB PO SCH (11:35)
[2018-07-03] MEDS: CARBIDOPA W LEVODOPA 25/100mg TABLET PO SCH ×3 (14:00→21:59)
[2018-07-03] MEDS: OLANZapine 5 MG TAB PO SCH (14:45)
[2018-07-03] MEDS ORDERED: WARFARIN SODIUM 2 MG TAB PO ONE (17:00)
[2018-07-03] MEDS: RASAGILINE 1MG TAB GT SCH (22:01)
[2018-07-04 06:12] VITALS: BP 92/55
[2018-07-04] MEDS: CARBIDOPA W LEVODOPA 25/100mg TABLET PO SCH ×5 (06:57→22:08)
[2018-07-04] MEDS: HYDROmorphone HCL 2 MG/ML VL IV PRN ×5 (07:33→18:10)
[2018-07-04 07:56] LABS: INR 2.13 (0.9-1.15); Prothrombin Time 21.8 sec (9.27-12.13)
[2018-07-04] MEDS: HYDROcodone-ACET 10/325MG TAB PO PRN ×3 (08:30→18:05)
[2018-07-04 08:41] VITALS: BP 111/70
[2018-07-04] MEDS: LEVOFLOXACIN 500MG 100 ML IV SCH (10:00)
[2018-07-04] MEDS: CITALOPRAM HYDROBR 20 MG TAB PO SCH (10:39)
[2018-07-04] MEDS: FUROSEMIDE 40 MG TAB PO SCH (10:39)
[2018-07-04] MEDS: OLANZapine 5 MG TAB PO SCH (10:40)
[2018-07-04] MEDS: NITROFURANTOIN (MONO) 100 mg CAP PO SCH ×2 (12:00→22:08)
[2018-07-04 12:28] VITALS: BP 92/55
[2018-07-04] MEDS: LORazepam 2MG/ML-1ML VIAL IV PRN (15:30)
[2018-07-04] MEDS ORDERED: WARFARIN SODIUM 2 MG TAB PO ONE (17:00)
[2018-07-04 17:03] VITALS: BP 89/60
[2018-07-04] MEDS: RASAGILINE 1MG TAB GT SCH (22:10)
[2018-07-04 22:25] VITALS: BP 109/70
[2018-07-05] MEDS: LORazepam 2MG/ML-1ML VIAL IV PRN ×2 (04:56→16:28)
[2018-07-05 05:21] VITALS: BP 105/74
[2018-07-05] MEDS: CARBIDOPA W LEVODOPA 25/100mg TABLET PO SCH ×5 (05:40→22:25)
[2018-07-05 05:52] LABS: INR 1.89 (0.9-1.15); Prothrombin Time 19.5 sec (9.27-12.13)
[2018-07-05] MEDS: HYDROmorphone HCL 2 MG/ML VL IV PRN ×5 (07:25→18:10)
[2018-07-05] MEDS: HYDROcodone-ACET 10/325MG TAB PO PRN ×4 (07:31→18:30)
[2018-07-05 08:39] VITALS: BP 111/83
[2018-07-05] MEDS: CITALOPRAM HYDROBR 20 MG TAB PO SCH (09:38)
[2018-07-05] MEDS: LEVOFLOXACIN 500MG 100 ML IV SCH (09:38)
[2018-07-05] MEDS: FUROSEMIDE 40 MG TAB PO SCH (09:39)
[2018-07-05] MEDS: OLANZapine 5 MG TAB PO SCH (09:42)
[2018-07-05] MEDS: NITROFURANTOIN (MONO) 100 mg CAP PO SCH ×2 (09:42→22:25)
[2018-07-05 12:34] VITALS: BP 101/53
[2018-07-05 17:00] VITALS: BP 103/54
[2018-07-05] MEDS ORDERED: WARFARIN SODIUM 5 MG TAB PO ONE (17:00)
[2018-07-05 22:23] VITALS: BP 94/56
[2018-07-05] MEDS: RASAGILINE 1MG TAB GT SCH (22:26)
[2018-07-06 05:41] LABS: Basophils # (auto) 0 uL; Basophils % (auto) 0.3 % (0.0-2.0); Eosinophils # (auto) 0.1 uL; Hematocrit 29.3 % (41.0-53.0); Lymphocytes # (auto) 1.5 uL; Lymphocytes % (auto) 32.1 % (10.0-50.0); Mean Corpuscular Hemoglobin 33.2 pg (28.0-32.0); Mean Corpuscular Hgb Conc. 34.2 g/dL (32.0-36.0); Monocytes # (auto) 0.3 uL; Monocytes % (auto) 7.1 % (0.0-12.0); Neutrophils # (auto) 2.7 uL; Neutrophils % (auto) 57.5 % (37.0-80.0); Nucleated Red Blood Cells % 0.1 %; Platelet Count (auto) 162 10^3/uL (140-450); Red Blood Cells 3.02 10^6/uL (4.5-5.90); Red Cell Distribution Width 16.4 % (11.8-14.3); White Blood Cell 4.7 10^3/uL (4.4-10.8)
[2018-07-06 05:48] VITALS: BP 93/54
[2018-07-06 05:55] LABS: INR 1.69 (0.9-1.15); Prothrombin Time 17.6 sec (9.27-12.13)
[2018-07-06 06:07] LABS: Albumin 2.8 g/dL (3.4-5.0); Calcium 8.5 mg/dL (8.5-10.1)
[2018-07-06 06:09] LABS: BUN/Creatinine Ratio 20.7
[2018-07-06 06:12] LABS: Bilirubin, Total 0.4 mg/dL (0.2-1.0); Total Protein 6.3 g/dL (6.4-8.2)
[2018-07-06] MEDS: CARBIDOPA W LEVODOPA 25/100mg TABLET PO SCH ×5 (06:31→21:06)
[2018-07-06 08:00] VITALS: BP 105/68
[2018-07-06] MEDS: FUROSEMIDE 40 MG TAB PO SCH (10:00)
[2018-07-06 10:10] VITALS: BP 93/54
[2018-07-06] MEDS: CITALOPRAM HYDROBR 20 MG TAB PO SCH (10:26)
[2018-07-06] MEDS: LEVOFLOXACIN 500MG 100 ML IV SCH (10:26)
[2018-07-06] MEDS: NITROFURANTOIN (MONO) 100 mg CAP PO SCH ×2 (10:28→21:06)
[2018-07-06] MEDS: OLANZapine 5 MG TAB PO SCH (10:29)
[2018-07-06] MEDS ORDERED: HYDROmorphone HCL 2 MG/ML VL IV PRN (11:30)
[2018-07-06] MEDS ORDERED: HYDROcodone-ACET 10/325MG TAB PO PRN (11:30)
[2018-07-06 12:00] VITALS: BP 104/67
[2018-07-06] MEDS: Ensure Enlive Chocolate 8oz Bottle PO SCH ×2 (12:03→17:55)
[2018-07-06] MEDS: FREE WATER GT SCH ×3 (14:31→21:05)
[2018-07-06 17:00] VITALS: BP 107/64
[2018-07-06] MEDS ORDERED: WARFARIN SODIUM 2.5 MG TAB PO ONE (17:00)
[2018-07-06] MEDS: RASAGILINE 1MG TAB GT SCH (21:06)
[2018-07-06 21:30] VITALS: BP 100/62
[2018-07-07] MEDS: FREE WATER GT SCH ×3 (01:21→10:00)
[2018-07-07 04:58] VITALS: BP 123/73
[2018-07-07] MEDS: CARBIDOPA W LEVODOPA 25/100mg TABLET PO SCH ×3 (05:23→14:00)
[2018-07-07 06:23] LABS: INR 1.72 (0.9-1.15); Prothrombin Time 17.8 sec (9.27-12.13)
[2018-07-07] MEDS: Ensure Enlive Chocolate 8oz Bottle PO SCH ×2 (08:00→12:00)
[2018-07-07 08:44] VITALS: BP 132/76
[2018-07-07] MEDS ORDERED: LINE600T PO (09:03)
[2018-07-07] MEDS: FUROSEMIDE 40 MG TAB PO SCH (10:00)
[2018-07-07] MEDS ORDERED: LINEZOLID 600MG TABLET PO SCH (10:00)
[2018-07-07] MEDS: OLANZapine 5 MG TAB PO SCH (10:00)
[2018-07-07] MEDS: CITALOPRAM HYDROBR 20 MG TAB PO SCH (10:00)
[2018-07-07 13:00] VITALS: BP 124/76
[2018-07-07] MEDS ORDERED: WARFARIN SODIUM 2.5 MG TAB PO ONE (17:00)
== END 2018-07-07 15:48 | DRG 871 ==
LOC: ER 20:01 → EDBD 20:01 → TELE-EAST 20:02 → EAST 07-06 11:33
PROVIDERS: ADMIT Nurse Practitioner Family; ATTEND Internal Medicine
DX: A41.9 Sepsis, unspecified organism (principal); G93.41 Metabolic encephalopathy; K81.0 Acute cholecystitis; N39.0 Urinary tract infection, site not specified; F31.30 Bipolar disorder, current episode depressed, mild or moderate severity, unspecified; F20.9 Schizophrenia, unspecified; F41.9 Anxiety disorder, unspecified; G20 Parkinson's disease; I50.9 Heart failure, unspecified; B95.2 Enterococcus as the cause of diseases classified elsewhere; Z16.21 Resistance to vancomycin; D63.8 Anemia in other chronic diseases classified elsewhere; N28.1 Cyst of kidney, acquired; Z79.01 Long term (current) use of anticoagulants; Z79.899 Other long term (current) drug therapy; Z85.51 Personal history of malignant neoplasm of bladder; Z86.718 Personal history of other venous thrombosis and embolism; Z87.440 Personal history of urinary (tract) infections; Z93.1 Gastrostomy status; Z88.6 Allergy status to analgesic agent; Z88.8 Allergy status to other drugs, medicaments and biological substances; Z90.89 Acquired absence of other organs
CPT/HCPCS: 36415; 51702; 71045; 74176; 80048; 80053; 80307; 80320; 81001; 82962; 83605; 83880; 84484; 85025; 85610; 85730; 86141; 87040; 87081; 87086; 87088; 87186; 93005; 94761; 96361; 96365; 97163; 99291; J1956; J2543

== ENCOUNTER 2018-10-12 08:42 | Day surgery (SDC) | payer MEDICARE, OTHER ==
[2018-10-08 09:17] LABS: Basophils # (auto) 0 uL; Basophils % (auto) 0.5 % (0.0-2.0); Eosinophils # (auto) 0.1 uL; Eosinophils % (auto) 2.4 % (0.0-7.0); Hematocrit 35.9 % (41.0-53.0); Lymphocytes # (auto) 1.7 uL; Lymphocytes % (auto) 38.3 % (10.0-50.0); Mean Corpuscular Hemoglobin 31.2 pg (28.0-32.0); Mean Corpuscular Hgb Conc. 33.4 g/dL (32.0-36.0); Mean Corpuscular Volume 93.3 fL (80.0-100.0); Monocytes # (auto) 0.4 uL; Monocytes % (auto) 7.9 % (0.0-12.0); Neutrophils # (auto) 2.3 uL; Neutrophils % (auto) 50.9 % (37.0-80.0); Platelet Count (auto) 210 10^3/uL (140-450); Red Blood Cells 3.85 10^6/uL (4.5-5.90); White Blood Cell 4.5 10^3/uL (4.4-10.8)
[2018-10-08 09:23] LABS: Urine Bacteria NONE SEEN /hpf (None Seen); Urine Blood 1+ /uL (Negative); Urine Specific Gravity 1.019 (1.001-1.035); Urine WBC 1 /hpf (0 - 3)
[2018-10-08 09:31] LABS: INR 1.07 (0.9-1.15); Prothrombin Time 11.4 sec (9.27-12.13)
[~2018-10-12] VITALS: Ht 175.3 cm; Wt 72.6 kg
[~2018-10-12 08:42] MED LIST changes: +FURO40TA PO; +POLY33504 PO; +POTA1TAB61 PO; +PRA25T PO; +RASA1TAB PO; -RASA1TAB4 PO
[2018-10-12] MEDS ORDERED: SODIUM CHLORIDE LOCK 10 ML ONE (09:59)
[2018-10-12] MEDS: MIDAZOLAM HCL 5 MG/ML-1ML VIAL ONE ×2 (10:00→10:03)
[2018-10-12] MEDS: fentaNYL CITRATE 100 MCG/2 ML VL ONE ×2 (10:00→10:03)
[2018-10-12 10:45] VITALS: BP 117/73
== END 2018-10-12 11:04 | disposition home or self-care (01) ==
LOC: GI 08:42
PROVIDERS: ATTEND Internal Medicine Gastroenterology
DX: Z43.1 Encounter for attention to gastrostomy (principal); K26.9 Duodenal ulcer, unspecified as acute or chronic, without hemorrhage or perforation; I82.409 Acute embolism and thrombosis of unspecified deep veins of unspecified lower extremity; G20 Parkinson's disease; F20.9 Schizophrenia, unspecified; F41.9 Anxiety disorder, unspecified; F32.9 Major depressive disorder, single episode, unspecified; I50.9 Heart failure, unspecified; Z82.49 Family history of ischemic heart disease and other diseases of the circulatory system; Z81.8 Family history of other mental and behavioral disorders; Z85.46 Personal history of malignant neoplasm of prostate; Z98.890 Other specified postprocedural states; Z88.6 Allergy status to analgesic agent; Z91.02 Food additives allergy status; Z88.8 Allergy status to other drugs, medicaments and biological substances
CPT/HCPCS: 36415; 43247; 81001; 85025; 85610; 85730; A6257; G0500; J2250; J3010; J7030

== ENCOUNTER 2020-02-17 08:44 | Inpatient (IN) | payer MEDICARE, OTHER ==
[~2020-02-17] VITALS: Ht 175.3 cm; Wt 92.0 kg
[~2020-02-17 08:44] MED LIST changes: +FURO1TAB31 PO; -FURO40TA PO; -PRA25T PO; +PRAM0.252 PO
[2020-02-17] MEDS ORDERED: SODIUM CHLORIDE 0.9% 1,000 ML IV ONE ×2 (09:42)
[2020-02-17 10:43] LABS: Calcium 8.1 mg/dL (8.5-10.1); Potassium 3.9 mmol/L (3.5-5.1)
[2020-02-17 10:48] LABS: BUN/Creatinine Ratio 13.6; Bilirubin, Total 0.9 mg/dL (0.2-1.0)
[2020-02-17 11:00] LABS: Lactic Acid w/Reflex 2.1 mmol/L (0.4-2.0)
[2020-02-17] MEDS ORDERED: AZITHROMYCIN 500MG/ 250ML 250 ML IV ONE (12:00)
[2020-02-17] MEDS ORDERED: cefTRIAXone 1GM/50ML D5W 50 ML IV ONE (12:00)
[2020-02-17 12:13] LABS: Urine Bacteria FEW /hpf (None Seen); Urine Blood 1+ /uL (Negative); Urine Hyaline Cast FEW /lpf (0 - 2); Urine Mucus FEW (None Seen); Urine Specific Gravity 1.017 (1.001-1.035); Urine WBC 35 /hpf (0 - 3)
[2020-02-17] MEDS ORDERED: traMADol HCL 50 MG TAB PO PRN (13:45)
[2020-02-17] MEDS ORDERED: ONDANSETRON HCL 4 MG/2 ML VIAL IV PRN (13:45)
[2020-02-17] MEDS ORDERED: ACETAMINOPHEN 500 MG TAB PO PRN (13:45)
[2020-02-17] MEDS ORDERED: DEXTROSE (50%) 50ML SYRG IV PRN (13:45)
[2020-02-17] MEDS ORDERED: LACTULOSE 20Gm/30ML SOLN PO PRN (13:45)
[2020-02-17] MEDS ORDERED: NITROGLYCERIN 0.4 MG SL TAB SL PRN (13:45)
[2020-02-17] MEDS ORDERED: ALBUTEROL SULF 2.5 MG/0.5ML(0.5%) NEB SOLN NEB PRN (13:45)
[2020-02-17] MEDS ORDERED: MORPHINE SULF INJ 2 MG/ML SYRINGE 1ML IV PRN (13:45)
[2020-02-17] MEDS ORDERED: OSELTAMIVIR 75 MG CAP PO ONE (13:45)
[2020-02-17 13:58] LABS: Basophils # (auto) 0 10 ^3/uL (0-0.2); Basophils % (auto) 0.4 % (0.0-2.0); Eosinophils # (auto) 0.3 10 ^3/uL (0-0.8); Eosinophils % (auto) 3.8 % (0.0-7.0); Hematocrit 34.2 % (41.0-53.0); Hemoglobin 11.7 g/dL (13.5-17.5); Lymphocytes # (auto) 1.2 10 ^3/uL (0.4-5.4); Lymphocytes % (auto) 18.4 % (10.0-50.0); Mean Corpuscular Hemoglobin 31.9 pg (28.0-32.0); Mean Corpuscular Hgb Conc. 34.1 g/dL (32.0-36.0); Mean Corpuscular Volume 93.3 fL (80.0-100.0); Monocytes # (auto) 0.4 10 ^3/uL (0-1.3); Monocytes % (auto) 6.1 % (0.0-12.0); Neutrophils # (auto) 4.7 10 ^3/uL (1.6-8.6); Neutrophils % (auto) 71.3 % (37.0-80.0); Platelet Count (auto) 113 10^3/uL (140-450); Red Blood Cells 3.66 10^6/uL (4.5-5.90); Red Cell Distribution Width 14.5 % (11.8-14.3); White Blood Cell 6.7 10^3/uL (4.4-10.8)
[2020-02-17] MEDS ORDERED: ENOXAPARIN SOD 40 MG/0.4 ML SYRINGE SC ONE (14:00)
[2020-02-17] MEDS ORDERED: levoFLOXacin 500MG 100 ML IV ONE (14:00)
[2020-02-17] MEDS ORDERED: FAMOTIDINE 20 MG TAB PO ONE (14:00)
[2020-02-17 14:36] VITALS: BP 132/95
[2020-02-17 17:00] VITALS: BP 122/72
[2020-02-17] MEDS: ACCU-CHEK COMFORT CURVE STRIP VI SCH ×2 (17:00→22:03)
[2020-02-17] MEDS: SODIUM CHLORIDE 0.9% 1,000 ML IV SCH (17:55)
[2020-02-17] MEDS: ALBUTEROL SULF 2.5 MG/0.5ML(0.5%) NEB SOLN NEB SCH (20:23)
[2020-02-17] MEDS: IPRATROPIUM BROM 0.5 MG/2.5ML INH SOL NEB SCH (20:24)
[2020-02-17 22:00] VITALS: BP 141/72
[2020-02-17] MEDS ORDERED: OSELTAMIVIR 75 MG CAP PO SCH (22:00)
[2020-02-17] MEDS: FAMOTIDINE 20 MG TAB PO SCH (22:02)
[2020-02-18] MEDS: SODIUM CHLORIDE 0.9% 1,000 ML IV SCH ×2 (03:14→17:54)
[2020-02-18 05:00] VITALS: BP 109/91
[2020-02-18] MEDS: ALBUTEROL SULF 2.5 MG/0.5ML(0.5%) NEB SOLN NEB SCH ×4 (06:03→18:33)
[2020-02-18] MEDS: IPRATROPIUM BROM 0.5 MG/2.5ML INH SOL NEB SCH ×4 (06:03→18:33)
[2020-02-18] MEDS: ACCU-CHEK COMFORT CURVE STRIP VI SCH ×4 (06:21→21:11)
[2020-02-18 08:00] VITALS: BP 146/75
[2020-02-18 09:00] VITALS: BP 146/75
[2020-02-18] MEDS: levoFLOXacin 500MG 100 ML IV SCH (09:59)
[2020-02-18] MEDS: FAMOTIDINE 20 MG TAB PO SCH ×2 (09:59→21:09)
[2020-02-18] MEDS ORDERED: ENOXAPARIN SOD 40 MG/0.4 ML SYRINGE SC SCH (10:00)
[2020-02-18] MEDS ORDERED: AZITHROMYCIN 500MG/ 250ML 250 ML IV SCH (10:00)
[2020-02-18] MEDS: CARBIDOPA W LEVODOPA 25/100mg TABLET PO SCH ×4 (11:56→21:11)
[2020-02-18] MEDS ORDERED: LORazepam 0.5 MG TAB PO PRN (12:45)
[2020-02-18 13:00] VITALS: BP 115/80
[2020-02-18 13:13] LABS: Basophils # (auto) 0 10 ^3/uL (0-0.2); Basophils % (auto) 0.3 % (0.0-2.0); Eosinophils # (auto) 0.2 10 ^3/uL (0-0.8); Eosinophils % (auto) 3.1 % (0.0-7.0); Hematocrit 35.2 % (41.0-53.0); Hemoglobin 12.2 g/dL (13.5-17.5); Lymphocytes % (auto) 16.3 % (10.0-50.0); Mean Corpuscular Hemoglobin 32.4 pg (28.0-32.0); Mean Corpuscular Hgb Conc. 34.8 g/dL (32.0-36.0); Mean Corpuscular Volume 92.9 fL (80.0-100.0); Monocytes # (auto) 0.5 10 ^3/uL (0-1.3); Monocytes % (auto) 8.6 % (0.0-12.0); Neutrophils # (auto) 4.5 10 ^3/uL (1.6-8.6); Neutrophils % (auto) 71.7 % (37.0-80.0); Platelet Count (auto) 112 10^3/uL (140-450); Red Blood Cells 3.78 10^6/uL (4.5-5.90); Red Cell Distribution Width 14.3 % (11.8-14.3); White Blood Cell 6.2 10^3/uL (4.4-10.8)
[2020-02-18 13:33] LABS: BUN/Creatinine Ratio 10.3; Calcium 8.3 mg/dL (8.5-10.1); Potassium 3.9 mmol/L (3.5-5.1)
[2020-02-18 14:49] LABS: INR 1.81 (0.9-1.15); Partial Thromboplastin Time 44.1 sec (23.64-32.05)
[2020-02-18 17:00] VITALS: BP 97/64
[2020-02-18] MEDS ORDERED: WARFARIN SODIUM 1 MG TAB PO ONE (17:00)
[2020-02-18] MEDS: PRAMIPEXOLE DIHYDROCHLORIDE MO 0.25 MG TAB PO SCH (21:09)
[2020-02-18] MEDS: MELATONIN 5 MG PO SCH (21:09)
[2020-02-18] MEDS: PRAVASTATIN SODIUM 20 MG TAB PO SCH (21:10)
[2020-02-18 21:38] VITALS: BP 136/63
[2020-02-19] MEDS: IPRATROPIUM BROM 0.5 MG/2.5ML INH SOL NEB SCH ×5 (00:22→20:14)
[2020-02-19] MEDS: ALBUTEROL SULF 2.5 MG/0.5ML(0.5%) NEB SOLN NEB SCH ×5 (00:22→20:14)
[2020-02-19 01:51] VITALS: BP 135/65
[2020-02-19] MEDS ORDERED: FUROSEMIDE 40 MG/4 ML VIAL IV ONE (03:15)
[2020-02-19] MEDS ORDERED: FUROSEMIDE 20 MG/2 ML VIAL ONE ×2 (03:32→03:35)
[2020-02-19 04:52] VITALS: BP 100/49
[2020-02-19] MEDS: ACCU-CHEK COMFORT CURVE STRIP VI SCH ×4 (05:47→21:30)
[2020-02-19] MEDS: CARBIDOPA W LEVODOPA 25/100mg TABLET PO SCH ×5 (05:47→21:30)
[2020-02-19 06:13] LABS: Basophils # (auto) 0 10 ^3/uL (0-0.2); Basophils % (auto) 0.3 % (0.0-2.0); Eosinophils # (auto) 0.2 10 ^3/uL (0-0.8); Eosinophils % (auto) 3.1 % (0.0-7.0); Hemoglobin 11.4 g/dL (13.5-17.5); Lymphocytes # (auto) 1.1 10 ^3/uL (0.4-5.4); Lymphocytes % (auto) 18.6 % (10.0-50.0); Mean Corpuscular Hemoglobin 32.3 pg (28.0-32.0); Mean Corpuscular Hgb Conc. 34.6 g/dL (32.0-36.0); Mean Corpuscular Volume 93.4 fL (80.0-100.0); Monocytes # (auto) 0.6 10 ^3/uL (0-1.3); Monocytes % (auto) 10.4 % (0.0-12.0); Neutrophils # (auto) 3.8 10 ^3/uL (1.6-8.6); Neutrophils % (auto) 67.6 % (37.0-80.0); Nucleated Red Blood Cells % 0.1 %; Platelet Count (auto) 114 10^3/uL (140-450); Red Blood Cells 3.53 10^6/uL (4.5-5.90); White Blood Cell 5.7 10^3/uL (4.4-10.8)
[2020-02-19 06:24] LABS: INR 1.6 (0.9-1.15); Partial Thromboplastin Time 43.2 sec (23.64-32.05)
[2020-02-19 06:27] LABS: BUN/Creatinine Ratio 14.5; Calcium 8.3 mg/dL (8.5-10.1); Potassium 4.2 mmol/L (3.5-5.1)
[2020-02-19 09:00] VITALS: BP 115/73
[2020-02-19] MEDS: levoFLOXacin 500MG 100 ML IV SCH (10:00)
[2020-02-19] MEDS: RASAGILINE 1 MG PO SCH (10:00)
[2020-02-19] MEDS: FUROSEMIDE 100 MG/10ML VIAL IV SCH (10:00)
[2020-02-19] MEDS: OLANZapine 5 MG TAB PO SCH (10:01)
[2020-02-19] MEDS: PRAMIPEXOLE DIHYDROCHLORIDE MO 0.25 MG TAB PO SCH ×2 (10:01→21:29)
[2020-02-19] MEDS: CITALOPRAM HYDROBR 20 MG TAB PO SCH (10:01)
[2020-02-19] MEDS: FAMOTIDINE 20 MG TAB PO SCH ×2 (10:02→21:30)
[2020-02-19 13:00] VITALS: BP 98/63
[2020-02-19 16:53] VITALS: BP 115/70
[2020-02-19] MEDS ORDERED: WARFARIN SODIUM 2 MG TAB PO ONE (17:00)
[2020-02-19] MEDS: MELATONIN 5 MG PO SCH (21:29)
[2020-02-19] MEDS: PRAVASTATIN SODIUM 20 MG TAB PO SCH (21:30)
[2020-02-19 22:00] VITALS: BP 109/74
[2020-02-20 05:30] VITALS: BP 115/80
[2020-02-20] MEDS: ACCU-CHEK COMFORT CURVE STRIP VI SCH ×4 (06:09→21:10)
[2020-02-20] MEDS: CARBIDOPA W LEVODOPA 25/100mg TABLET PO SCH ×5 (06:09→21:10)
[2020-02-20] MEDS: ALBUTEROL SULF 2.5 MG/0.5ML(0.5%) NEB SOLN NEB SCH ×4 (06:25→18:46)
[2020-02-20] MEDS: IPRATROPIUM BROM 0.5 MG/2.5ML INH SOL NEB SCH ×4 (06:25→18:46)
[2020-02-20 06:31] LABS: INR 1.86 (0.9-1.15); Partial Thromboplastin Time 42.4 sec (23.64-32.05)
[2020-02-20 09:00] VITALS: BP 100/63
[2020-02-20] MEDS: RASAGILINE 1 MG PO SCH (10:00)
[2020-02-20] MEDS: levoFLOXacin 500MG 100 ML IV SCH (10:05)
[2020-02-20] MEDS: FUROSEMIDE 100 MG/10ML VIAL IV SCH (10:05)
[2020-02-20] MEDS: PRAMIPEXOLE DIHYDROCHLORIDE MO 0.25 MG TAB PO SCH ×2 (10:06→21:09)
[2020-02-20] MEDS: FAMOTIDINE 20 MG TAB PO SCH ×2 (10:06→21:09)
[2020-02-20] MEDS: OLANZapine 5 MG TAB PO SCH (10:06)
[2020-02-20] MEDS: CITALOPRAM HYDROBR 20 MG TAB PO SCH (10:07)
[2020-02-20 10:45] VITALS: BP 100/63
[2020-02-20 13:00] VITALS: BP 102/57
[2020-02-20] MEDS ORDERED: WARFARIN SODIUM 1 MG TAB PO ONE (17:00)
[2020-02-20 17:28] VITALS: BP 105/72
[2020-02-20] MEDS: MELATONIN 5 MG PO SCH (21:09)
[2020-02-20] MEDS: PRAVASTATIN SODIUM 20 MG TAB PO SCH (21:10)
[2020-02-20 22:00] VITALS: BP 106/68
[2020-02-21] MEDS: ALBUTEROL SULF 2.5 MG/0.5ML(0.5%) NEB SOLN NEB SCH ×4 (00:12→19:12)
[2020-02-21] MEDS: IPRATROPIUM BROM 0.5 MG/2.5ML INH SOL NEB SCH ×4 (00:13→19:12)
[2020-02-21 05:33] VITALS: BP 101/64
[2020-02-21] MEDS: CARBIDOPA W LEVODOPA 25/100mg TABLET PO SCH ×5 (05:45→21:20)
[2020-02-21] MEDS: ACCU-CHEK COMFORT CURVE STRIP VI SCH ×4 (05:46→21:22)
[2020-02-21 06:50] LABS: INR 2.18 (0.9-1.15); Partial Thromboplastin Time 47.5 sec (23.64-32.05)
[2020-02-21 09:00] VITALS: BP 111/72
[2020-02-21] MEDS: levoFLOXacin 500MG 100 ML IV SCH (09:12)
[2020-02-21] MEDS: FUROSEMIDE 100 MG/10ML VIAL IV SCH (09:13)
[2020-02-21] MEDS: RASAGILINE 1 MG PO SCH (09:14)
[2020-02-21] MEDS: CITALOPRAM HYDROBR 20 MG TAB PO SCH (09:15)
[2020-02-21] MEDS: PRAMIPEXOLE DIHYDROCHLORIDE MO 0.25 MG TAB PO SCH ×2 (09:16→21:22)
[2020-02-21] MEDS: OLANZapine 5 MG TAB PO SCH (09:17)
[2020-02-21] MEDS: FAMOTIDINE 20 MG TAB PO SCH ×2 (09:17→21:21)
[2020-02-21 13:00] VITALS: BP 105/62
[2020-02-21 13:44] LABS: Basophils # (auto) 0 10 ^3/uL (0-0.2); Basophils % (auto) 0.2 % (0.0-2.0); Eosinophils # (auto) 0.2 10 ^3/uL (0-0.8); Eosinophils % (auto) 3.1 % (0.0-7.0); Hematocrit 36.2 % (41.0-53.0); Hemoglobin 12.6 g/dL (13.5-17.5); Lymphocytes # (auto) 0.8 10 ^3/uL (0.4-5.4); Lymphocytes % (auto) 16.2 % (10.0-50.0); Mean Corpuscular Hemoglobin 32.2 pg (28.0-32.0); Mean Corpuscular Hgb Conc. 34.8 g/dL (32.0-36.0); Mean Corpuscular Volume 92.3 fL (80.0-100.0); Monocytes # (auto) 0.6 10 ^3/uL (0-1.3); Monocytes % (auto) 11.6 % (0.0-12.0); Neutrophils # (auto) 3.5 10 ^3/uL (1.6-8.6); Neutrophils % (auto) 68.9 % (37.0-80.0); Nucleated Red Blood Cells % 0.1 %; Platelet Count (auto) 148 10^3/uL (140-450); Red Blood Cells 3.92 10^6/uL (4.5-5.90); White Blood Cell 5.2 10^3/uL (4.4-10.8)
[2020-02-21 13:59] LABS: Calcium 8.7 mg/dL (8.5-10.1); Potassium 3.8 mmol/L (3.5-5.1)
[2020-02-21 14:00] LABS: BUN/Creatinine Ratio 20.7
[2020-02-21 17:00] VITALS: BP 117/68
[2020-02-21] MEDS ORDERED: WARFARIN SODIUM 1 MG TAB PO ONE (17:00)
[2020-02-21] MEDS: MELATONIN 5 MG PO SCH (21:20)
[2020-02-21] MEDS: PRAVASTATIN SODIUM 20 MG TAB PO SCH (21:21)
[2020-02-21 21:56] VITALS: BP 104/71
[2020-02-22] MEDS: ALBUTEROL SULF 2.5 MG/0.5ML(0.5%) NEB SOLN NEB SCH ×3 (00:10→11:45)
[2020-02-22] MEDS: IPRATROPIUM BROM 0.5 MG/2.5ML INH SOL NEB SCH ×3 (00:11→11:45)
[2020-02-22 05:30] VITALS: BP 128/67
[2020-02-22] MEDS: CARBIDOPA W LEVODOPA 25/100mg TABLET PO SCH ×3 (05:31→13:57)
[2020-02-22 05:53] LABS: Basophils # (auto) 0 10 ^3/uL (0-0.2); Basophils % (auto) 0.4 % (0.0-2.0); Eosinophils # (auto) 0.1 10 ^3/uL (0-0.8); Eosinophils % (auto) 2.3 % (0.0-7.0); Hematocrit 35.7 % (41.0-53.0); Hemoglobin 12.1 g/dL (13.5-17.5); Lymphocytes # (auto) 0.8 10 ^3/uL (0.4-5.4); Lymphocytes % (auto) 16.2 % (10.0-50.0); Mean Corpuscular Hemoglobin 31.6 pg (28.0-32.0); Mean Corpuscular Hgb Conc. 33.8 g/dL (32.0-36.0); Mean Corpuscular Volume 93.5 fL (80.0-100.0); Monocytes # (auto) 0.5 10 ^3/uL (0-1.3); Monocytes % (auto) 9.5 % (0.0-12.0); Neutrophils # (auto) 3.6 10 ^3/uL (1.6-8.6); Neutrophils % (auto) 71.6 % (37.0-80.0); Platelet Count (auto) 162 10^3/uL (140-450); Red Blood Cells 3.82 10^6/uL (4.5-5.90); Red Cell Distribution Width 13.9 % (11.8-14.3); White Blood Cell 5.1 10^3/uL (4.4-10.8)
[2020-02-22 06:07] LABS: INR 2.64 (0.9-1.15); Partial Thromboplastin Time 42.6 sec (23.64-32.05)
[2020-02-22] MEDS: ACCU-CHEK COMFORT CURVE STRIP VI SCH ×2 (06:30→13:50)
[2020-02-22] MEDS: FUROSEMIDE 100 MG/10ML VIAL IV SCH (08:46)
[2020-02-22] MEDS: FAMOTIDINE 20 MG TAB PO SCH (08:48)
[2020-02-22] MEDS: PRAMIPEXOLE DIHYDROCHLORIDE MO 0.25 MG TAB PO SCH (08:48)
[2020-02-22] MEDS: CITALOPRAM HYDROBR 20 MG TAB PO SCH (08:48)
[2020-02-22] MEDS: OLANZapine 5 MG TAB PO SCH (08:49)
[2020-02-22] MEDS: RASAGILINE 1 MG PO SCH (08:50)
[2020-02-22 09:48] VITALS: BP 140/73
[2020-02-22] MEDS ORDERED: levoFLOXacin 750MG 150 ML IV SCH (10:00)
[2020-02-22 12:37] LABS: BUN/Creatinine Ratio 23.5; Calcium 8.8 mg/dL (8.5-10.1); Potassium 3.8 mmol/L (3.5-5.1)
[2020-02-22 13:00] VITALS: BP 111/67
[2020-02-22] MEDS ORDERED: FURO1TAB31 PO (14:42)
[2020-02-22] MEDS ORDERED: LEVO500T21 PO (14:45)
[2020-02-22] MEDS ORDERED: POTA1TAB61 PO (14:45)
[2020-02-22 16:19] VITALS: BP 107/69
[2020-02-22 16:59] VITALS: BP 117/73
== END 2020-02-22 18:00 | disposition home health service (06) | DRG 177 ==
LOC: ER 08:44 → TELE 08:45 → TELE-EAST 15:15
PROVIDERS: ADMIT Internal Medicine; ATTEND Internal Medicine Nephrology
DX: J15.6 Pneumonia due to other Gram-negative bacteria (principal); J96.01 Acute respiratory failure with hypoxia; E87.2 Acidosis; N39.0 Urinary tract infection, site not specified; G20 Parkinson's disease; R73.9 Hyperglycemia, unspecified; F20.9 Schizophrenia, unspecified; M16.0 Bilateral primary osteoarthritis of hip; E66.3 Overweight; B96.20 Unspecified Escherichia coli [E. coli] as the cause of diseases classified elsewhere; I27.20 Pulmonary hypertension, unspecified; F32.9 Major depressive disorder, single episode, unspecified; Z90.49 Acquired absence of other specified parts of digestive tract; Z79.01 Long term (current) use of anticoagulants; Z79.899 Other long term (current) drug therapy; Z68.30 Body mass index [BMI] 30.0-30.9, adult
CPT/HCPCS: 36415; 36600; 71045; 73502; 80048; 80053; 81001; 82805; 82962; 83036; 83605; 83880; 84484; 85025; 85610; 85730; 87040; 87081; 87086; 87088; 87186; 87804; 93005; 93306; 94640; 96361; 96365; 96367; 96372; 97163; G0378; J0696; J1956